=== PATIENT | female | born 1970 | race Caucasian/White ===

== ENCOUNTER 2023-08-12 14:12 | Inpatient (IN) | payer BC, SELFPAY ==
[2023-08-12] VITALS (20 sets, daily range): BP systolic 105–151; BP diastolic 56–89; PULSE 59–90; RESP 17–28; TEMP 36.5–37.8; O2SAT 2–99; BMI 35.3
--- NOTE | 2023-08-12 14:17 | PC.NURSE ---
arrived by stretcher from ED admissions
--- NOTE | 2023-08-12 14:17 | HMH.PHAINT1 ---
Pharmacy Intervention Comments: MEDICATION RECONCILIATION COMPLETED ON PATIENT USING EXTERNAL FILL HISTORY FROM PHARMACY. -JESSICA DOAN, VALERIANOD
--- NOTE | 2023-08-12 14:42 | CA_ITS ---
APPROVED REPORT EXAM: Comprehensive 2D, Doppler, and color-flow Echocardiogram Sheep Clipper: Kristen Manriquez RT(R) Ht: 5 ft 8 in Wt: 230lbs BSA: 2.17 BP: 132/86 mmHg Indications: NSTEMI, CP, smoker, palpitations, fatigue, HTN, SOB, SALVADOR, hyperlipidemia. 2D Dimensions LVEF (Durbin's) 30.30 % F: 54 - 74 LV Volume 182.70 mL F: 46 - 106 LV Volume Index 84.2 mL/m2 F: 29 - 61 LA Volume 63.40 mL LA Volume Index 29.22 mL/m2 (M/F) 16-34 EF AP4 30.40 % EF AP2 28.8 % EF BP 30.3 % GL Strain -7.6 % M-Mode Dimensions RVDd 2.30 cm (0.9-2.6) LA Diam 3.62 cm (1.9-4.0) LVDd 6.46 cm (3.5-5.7) LVDs 5.36 cm (3.5-5.7) IVSd 1.11 cm (0.6-1.1) PWd 0.68 cm (0.6-1.1) EF (Teich) 34.80% FS 17.00% EDV (Teich) 213.00 mL ESV (Teich) 138.90 mL LV Diastology E Decel Time 197 (160-240 msec) E/A Ratio 0.8 Aortic Valve AI PHT 612.00 ms Mitral Valve MV E Max Raheem. 65.0 (40-130 cm/s) MV A Velocity 85.0 (40-130 cm/s) E/A Ratio 0.77 MV PHT 58.0 ms Left Ventricle The left ventricle is mildly dilated (LVEDVi 85 ml/m2). Left ventricular systolic function is severely decreased. There is increased LV wall thickness. There is severe global hypokinesis present. The mid to distal septal, inferior septal, and anterior septal LV rivas, as well as the LV apex, are akinetic. Grade 2 diastolic dysfunction is present. No left ventricle thrombus noted on this study. LVEF is 20%. Right Ventricle The right ventricle is normal size. The right ventricular systolic function is normal. Atria The left atrium is mildly dilated. The right atrium size is normal. There is no Doppler evidence of interatrial shunt. Aortic Valve The aortic valve is mildly thickened. There is no aortic valvular stenosis. Mild to moderate aortic regurgitation. Mitral Valve The mitral valve leaflets are mildly thickened. No evidence of mitral valve stenosis. Mild mitral regurgitation. Tricuspid Valve The tricuspid valve leaflets are thin and pliable. Mild tricuspid regurgitation. RVSP is 20-25 mmHg. Pulmonic Valve The pulmonary valve is normal in structure. Trace pulmonic regurgitation. Great Vessels The aortic root is normal in size. The ascending aorta is not well-visualized. IVC is normal in size and collapses >50% with inspiration. Pericardium There is no pericardial effusion. Other Information Study Quality: Fair Conclusion Mild LV dilation (LVEDVi 85 ml/m2) with severe reduction in LV systolic function (LVEF 20%). The mid to distal septal, inferior septal, and anterior septal LV rivas, as well as the LV apex, are akinetic. Grade 2 diastolic dysfunction. Mild LA dilation. Mild to moderate AI. Mild MR, mild TR. Electronically signed by : Una Orozco MD 08/17/2023 00:53:53
--- NOTE | 2023-08-12 14:44 | PC.NURSE ---
Pt arrived to floor. 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 Pt describes discomfort as pressure. Niels notified. Orders to consult cardiology. Natalie consulted. New orders received to get echocardiogram. Give Metoprolol Tartrate 25 mg PO once now.
[2023-08-12] MEDS: METOPROLOL TARTRATE 25MG TABLET 25 MG PO (15:31)
--- NOTE | 2023-08-12 15:42 | PC.NURSE ---
Spoke with Dr. Estrada at this time. Instructed to call in cardiac cath technician team. Producer Assistant notified to call family development extension specialist team at this time. states to give pt 40 mg IV lasix and to stop all fluids.
--- NOTE | 2023-08-12 15:49 | PC.NURSE ---
Home Medications rosette Espinoza Medication Instructions Recorded Confirmed atorvastatin 20 mg tablet 20 mg PO DAILY 08/12/23 08/12/23 celecoxib 200 mg capsule 200 mg PO DAILY 08/12/23 08/12/23 duloxetine 60 mg capsule,delayed 60 mg PO DAILY 08/12/23 08/12/23 release gabapentin 600 mg tablet 600 mg PO TID 08/12/23 08/12/23 olmesartan 40 mg tablet 40 mg PO DAILY 08/12/23 08/12/23 pantoprazole 40 mg tablet,delayed 40 mg PO DAILY 08/12/23 08/12/23 release
[2023-08-12] MEDS: FUROSEMIDE 40MG/4ML VIAL 40 MG IV ×2 (15:52→19:59)
--- NOTE | 2023-08-12 15:56 | ECG_ITS ---
APPROVED REPORT Exam: Resting ECG HR:84 bpm ECG Measurements Heart Rate 84 AXES AK 146 P 67 QRSd 98 QRS 72 QT 414 T 252 QTc [address] DEVIATION AND MODERATE T-WAVE ABNORMALITY, CONSIDER ANTEROLATERAL ISCHEMIA [-0.1+ mV T-WAVE IN V3-V6] ST DEVIATION AND MODERATE T-WAVE ABNORMALITY, CONSIDER INFERIOR ISCHEMIA [-0.1+ mV T-WAVE IN II/aVF] ABNORMAL ECG UNCONFIRMED REPORT Electronically signed by : Mohit Shane MD 08/14/2023 07:37:37
--- NOTE | 2023-08-12 16:13 | IR_ITS ---
APPROVED REPORT Patient Location: Emergent Haul[facility] Boss: HELLEN Gray RT (R) PROCEDURES Selective coronary angiogram Intravascular ultrasound of the proximal and mid LAD Drug-eluting stent deployment to the proximal mid LAD INDICATION Acute anterior non-ST elevation myocardial infarction, Coronary artery disease Informed consent was obtained prior to the procedure. COMPLICATIONS None Estimated Blood Loss: Less than 10 mls TECHNIQUE One percent lidocaine used to anesthetize the right anterior aspect of the wrist. The right radial artery was accessed via the Seldinger technique. A 6 [place] sheath was placed in the right radial artery. 2.5 mg of Verapamil, 800 mcg of nitroglycerin, 1mg Lidocaine and 5000 U Heparin were given through the arterial sheath. The papa catheter was also used to perform selective coronary angiogram. At the end the diagnostic angiogram therapeutic ACT was administered giving a therapeutic ACT and the guide cath was placed in left main artery followed by a Choice PT extra-support wire placed into the LAD. Intravascular ultrasound probe was advanced which demonstrated a heavy plaque burden in the proximal LAD. Although the MLA exceeded 4 mm??? this clearly was the infarct vessel therefore it was decided to proceed with revascularization. In order to get better guide support 6 [place] JL 3 guide catheter was placed in left main artery followed by Choice PT to support wire placed distally. A 4.5 x 18 mm Brandon frontier stent was deployed at 12 елена reducing the culprit stenosis to 0% an additional 3.5 x 18 mm Brandon frontier stent was deployed distal to the for stent yet still overlapping and deployed at 12 елена. The balloon was brought back and deployed at 24 елена to mesh the 2 stents. Following this intravascular ultrasound probe was advanced which demonstrated excellent stent apposition and expansion of the stents throughout. There is excellent proximal distal transitioning of the stent. At this point the apparatus was removed the sheath was removed and hemostasis was achieved using TR banding patient was transferred to the postop putting in stable condition ANGIOGRAPHIC RESULTS The left main artery Normal The left anterior descending artery Has a proximal 40 to 50% stenosis immediately adjacent to the large diagonal arteries which appear to share the same ostium. The remaining LAD and diagonal arteries are free of disease The circumflex artery Mild luminal irregularities The right coronary artery Large dominant normal The POZO ventriculogram reveals Not performed The left ventricular end-diastolic pressure Not measured IMPRESSION Acute non-ST elevation anterior myocardial infarction with a culprit vessel being a proximal LAD stenosis Successful stent to the proximal to mid LAD culprit stenosis reduced to 0% with 2 contiguous drug-eluting stents PLAN 1. Switch from Brilinta to Effient 10 mg daily plus aspirin 81 mg daily 2. Start high intensity statin with goal LDL to be 55 3. Avoidance of tobacco products 4. Start Entresto and carvedilol once hemodynamically stable 5. I anticipate a prolonged hospitalization requiring further up titration of afterload reducing medicines and diuresis. Anticipate obtaining echocardiogram Tuesday. I do suspect a component of the LV dysfunction is stunned. Electronically signed by : Tomas Estrada MD 08/12/2023 17:53:12
[2023-08-12 16:32] LABS: Basophils # 0.1 K/mm3 (0-0.2); Basophils % 0.7 % (0.1-2.0); Eosinophils # 0.2 K/mm3 (0.0-0.4); Eosinophils % 1.2 % (0.1-12.0); Hematocrit 46.1 % (37.0-47.0); Hemoglobin 15.1 g/dL (12.2-16.2); Lymphocytes # 3.9 K/mm3 (0.7-4.5); Lymphocytes % 21.6 % (10-50); Mean Corpuscular HGB Conc 32.9 g/dL (31.8-35.4); Mean Corpuscular Hemoglobin 28.4 pg (27.0-31.2); Mean Corpuscular Volume 86.3 fl (81-99); Mean Platelet Volume 8.5 fl (7.4-10.4); Monocytes # 0.5 K/mm3 (0.1-1.0); Monocytes % 2.9 % (1.7-9.3); Neutrophils # 13.1 K/mm3 (1.8-7.8); Neutrophils % 73.5 % (37.0-80.0); Platelet Count 297 K/mm3 (142-424); Red Blood Count 5.34 M/mm3 (4.20-5.40); Red Cell Distribution Width 13.8 % (11.5-17.5); White Blood Count 17.8 K/mm3 (4.8-10.8)
[2023-08-12 16:37] LABS: MANUAL DIFFERENTIAL MANUAL DIFFERENTIAL (MANUAL DIFF)
[2023-08-12 16:44] LABS: Chloride 107 mmol/L (98-107); Sodium 138 mmol/L (136-145)
[2023-08-12 16:45] LABS: Potassium 3.8 mmoL/L (3.5-5.1)
[2023-08-12 16:48] LABS: Anion Gap 9.8 mEq/L (5-15); Blood Urea Nitrogen 15 mg/dl (7-17); Calcium 9.8 mg/dl (8.4-10.2); Carbon Dioxide 25 mmol/L (22.0-30.0); Creatinine Clearance Estimated 109 mL/min (50-200); Estimated Glomerular Filt Rate 58 ml/min (>60); GFR (African American) 70 ML/MIN (>60); Glucose 124 mg/dl (74-100)
[2023-08-12] MEDS: diphenhydrAMINE 50MG/ML VIAL 50 MG IV (16:50)
[2023-08-12] MEDS: 0.9 % SODIUM CHLORIDE 500 ML 25 ML IV (16:53)
[2023-08-12] MEDS: HEPARIN 1,000 UNITS/500ML NS (CATH LAB) 3000 UNIT IV (16:53)
[2023-08-12] MEDS: HEPARIN 1,000 UNITS/ML 10ML VIAL (CATH LAB) 10000 UNIT IV (16:57)
[2023-08-12] MEDS: LIDOCAINE 1% 10ML MDV 20 ML IJ (16:57)
[2023-08-12] MEDS: NITROGLYCERIN 800MCG/8ML SYR (CATH LAB) 800 MCG IA (16:57)
[2023-08-12] MEDS: VERAPAMIL 2.5MG/ML 2ML VIAL 2.5 MG IV (16:57)
[2023-08-12] MEDS: MIDAZOLAM HCL 1MG/1ML 5ML VIAL 1 MG IV (17:17)
[2023-08-12] MEDS: FENTANYL 100MCG/2ML VIAL 50 MCG IV (17:17)
--- NOTE | 2023-08-12 17:31 | P.HP_ITS ---
History of Present Illness *Admission Date: 08/12/23 *Reason for visit:: chest pressure *History of present illness: Patient is a 52-year-old female with past medical history of hypertension hyperlipidemia who presents to the hospital due to chest pressures. According to the patient she has been feeling chest pressure for the past few days, she was evaluated at outside emergency department where she was found to have elevated troponin she was recommended to come to the [facility] for further evaluation by cardiology. Patient otherwise also complaining of shortness of breath. Patient mentions it is more like chest pressure than chest pain. Patient otherwise denied fever chills diarrhea constipation dysuria. [facility] Disclaimer: The information contained in this section may have been updated after the patient was seen, as this information can be updated by other users. Medical History (Updated 08/12/23 @ 17:32 by Elia Bowser MD) Angina at rest Urinary incontinence Hypertension Surgical History (Updated 08/12/23 @ 15:02 by Claudia Velez CMA) History of cholecystectomy History of hysterectomy Social History (Updated 08/12/23 @ 15:02 by Claudia Velez CMA) Smoking Status: Current every day smoker tobacco type: cigarettes packs per day: 1 alcohol intake: current current occupational status: employed Travel in the last 8 weeks: None Review of Systems Review of Systems Review of systems:: pertinent systems reviewed and negative unless documented below Meds Home Medications and Allergies Home Medications Medication Instructions Recorded Confirmed Type atorvastatin 20 mg tablet 20 mg PO DAILY 08/12/23 08/12/23 History celecoxib 200 mg capsule 200 mg PO DAILY 08/12/23 08/12/23 History duloxetine 60 mg capsule,delayed 60 mg PO DAILY 08/12/23 08/12/23 History release gabapentin 600 mg tablet 600 mg PO TID 08/12/23 08/12/23 History olmesartan 40 mg tablet 40 mg PO DAILY 08/12/23 08/12/23 History pantoprazole 40 mg tablet,delayed 40 mg PO DAILY 08/12/23 08/12/23 History release New Prescriptions to Start Prescriptions: Allergies Allergy/AdvReac Type Severity Reaction Status Date / Time No Known Allergies Allergy Verified 08/12/23 14:32 Exam Data for Last 24 hours Vital signs and Labs for Last 24 Hours: Temp Pulse Resp BP Pulse Ox O2 Del Method O2 Flow Rate 98.3 F 86 18 149/88 H 98 Nasal Cannula 2 04/19/24 14:31 08/12/23 16:18 08/12/23 16:18 08/12/23 16:18 08/12/23 16:18 08/12/23 16:18 08/12/23 16:18 Laboratory Results - last 24 hr 08/12/23 16:23: WBC 17.8 H, RBC 5.34, Hgb 15.1, Hct 46.1, MCV 86.3, MCH 28.4, MCHC 32.9, RDW 13.8, Plt Count 297, MPV 8.5, Neut % (Auto) 73.5, Lymph % (Auto) 21.6, [place] % (Auto) 2.9, Eos % (Auto) 1.2, Baso % (Auto) 0.7, Neut # (Auto) 13.1 H, Lymph # (Auto) 3.9, [place] # (Auto) 0.5, Eos # (Auto) 0.2, Baso # (Auto) 0.1, Sodium 138, Potassium 3.8, Chloride 107, Carbon Dioxide 25, Anion Gap 9.8, BUN 15, Creatinine 1.00, Estimated Creat Clear 109, Estimated GFR 58 L, Est GFR ( Amer) 70, Glucose 124 H, Calcium 9.8 I & O for Last 24 hours: Intake & Output 08/09/23 08/10/23 08/11/23 08/12/23 23:59 23:59 23:59 23:59 Weight 105.318 kg Constitutional Constitutional: no acute distress *Routine HEENT Exam Head: Present normocephalic Eye: Present EOMI and PERRL ENT: Present mucous membranes moist *Routine Neck Exam Neck: Present supple; Absent lymphadenopathy *Routine Respiratory Exam Respiratory: Present CTA bilaterally *Routine Cardiovascular Exam Cardiovascular: Present RRR *Routine Abdominal Exam Abdominal: Present soft and normoactive bowel sounds; Absent tenderness *Routine Rectal Exam Rectal:: deferred *Routine Genitalia Exam Genitalia:: deferred *Routine Extremities Exam Extremities: Absent cyanosis, clubbing or edema *Routine Skin Exam Skin: Present warm; Absent rash *Routine Neurological Exam Neurological: Present alert and oriented X3 Assessment and Plan *Assessment and plan (1) NSTEMI (non-ST elevated myocardial infarction): Status: Acute Category: Medical Code(s): I21.4 - Non-ST elevation (NSTEMI) myocardial infarction (2) HLD (hyperlipidemia): Status: Acute Category: Medical Code(s): E78.5 - Hyperlipidemia, unspecified (3) Hypertension: Status: Acute Category: Medical Code(s): I10 - Essential (primary) hypertension Plan Patient is a 52-year-old female with past medical history of hypertension hyperlipidemia who presents to the hospital due to chest pressures. According to the patient she has been feeling chest pressure for the past few days, she was evaluated at outside emergency department where she was found to have elevated troponin she was recommended to come to the [facility] for further evaluation by cardiology. Patient otherwise also complaining of shortness of breath. Patient mentions it is more like chest pressure than chest pain. Patient otherwise denied fever chills diarrhea constipation dysuria. Assessment and plan Chest pressure, elevated troponin likely NSTEMI History of CAD Hypertension Plan for cardiac cath Monitor on cardiac group home supervisor troponin Consult cardiology Monitor and replace electrolytes Leukocytosis Likely reactive Resume home Protonix, olmesartan, atorvastatin DVT prophylaxis-, heparin
[2023-08-12 17:40] LABS: Eosinophils % 1 % (0-3); Lymphocytes % 19 % (10-50); Monocytes % 2 % (2-9); Neutrophils % 78 % (42-76); Platelet Estimate Normal; RBC Morphology Normal; Total Cells Counted 100
[2023-08-12] MEDS: IOPAMIDOL-370 (76%);100ML BOTTLE 150 ML IV (18:03)
[2023-08-12 18:04] LABS: CATHL Activated Clotting Time > 400 SEC (74-125)
[2023-08-12 18:06] LABS: CATHL Activated Clotting Time 314 SEC (74-125)
[2023-08-12] MEDS: PRASUGREL 10MG TAB 60 MG PO (18:08)
[2023-08-12 19:37] LABS: Troponin I 2.28 ng/ml (0.00-0.034)
[2023-08-12] MEDS: SACUBITRIL/VALSARTAN 24-26MG TABLET 1 EACH PO (19:59)
[2023-08-13] VITALS (14 sets, daily range): BP systolic 89–113; BP diastolic 49–68; PULSE 70–88; RESP 15–24; TEMP 36.6–37.3; O2SAT 94–97; BMI 35.0
--- NOTE | 2023-08-13 05:39 | ECG_ITS ---
APPROVED REPORT Exam: Resting ECG HR:76 bpm ECG Measurements Heart Rate 76 AXES IA 144 P 48 QRSd 100 QRS 38 QT 481 T 231 QTc [address] DEVIATION AND MARKED T-WAVE ABNORMALITY, CONSIDER ANTEROLATERAL ISCHEMIA [-0.5+ mV T-WAVE IN I/aVL/V3-V6] ST DEVIATION AND MODERATE T-WAVE ABNORMALITY, CONSIDER INFERIOR ISCHEMIA [-0.1+ mV T-WAVE IN II/aVF] ABNORMAL ECG UNCONFIRMED REPORT Electronically signed by : Mohit Shane MD 08/14/2023 07:37:24
[2023-08-13] MEDS: HEPARIN SODIUM 5,000 UNIT/ML VIAL 5000 UNIT SQ ×3 (05:56→20:48)
[2023-08-13 06:01] LABS: Basophils # 0.1 K/mm3 (0-0.2); Basophils % 0.7 % (0.1-2.0); Eosinophils # 0.3 K/mm3 (0.0-0.4); Eosinophils % 1.6 % (0.1-12.0); Hematocrit 43.8 % (37.0-47.0); Hemoglobin 14.1 g/dL (12.2-16.2); Lymphocytes # 3.3 K/mm3 (0.7-4.5); Lymphocytes % 19.9 % (10-50); Mean Corpuscular HGB Conc 32.3 g/dL (31.8-35.4); Mean Corpuscular Hemoglobin 28.1 pg (27.0-31.2); Mean Platelet Volume 8.5 fl (7.4-10.4); Monocytes # 0.7 K/mm3 (0.1-1.0); Monocytes % 3.9 % (1.7-9.3); Neutrophils # 12.3 K/mm3 (1.8-7.8); Neutrophils % 73.8 % (37.0-80.0); Platelet Count 274 K/mm3 (142-424); Red Blood Count 5.03 M/mm3 (4.20-5.40); Red Cell Distribution Width 13.8 % (11.5-17.5); White Blood Count 16.7 K/mm3 (4.8-10.8)
--- NOTE | 2023-08-13 06:01 | XR_ITS ---
PROCEDURE INFORMATION: Exam: XR Chest Exam date and time: 08/13/2023 6:36 AM Age: 52 years old Clinical indication: Chest wall pain; Additional info: Cp TECHNIQUE: Imaging protocol: Radiologic exam of the chest. Views: 1 view. COMPARISON: No relevant prior studies available. FINDINGS: Lungs: No consolidation. There is some trace right basilar atelectasis. Pleural spaces: No pleural effusion. No pneumothorax. Heart/Mediastinum: No cardiomegaly. Bones/joints: There are degenerative changes of the spine. IMPRESSION: 1. No acute findings. 2. A followup PA and lateral radiograph is recommended when the patient is clinically able.
[2023-08-13 06:07] LABS: Chloride 104 mmol/L (98-107)
[2023-08-13 06:08] LABS: Potassium 3.3 mmoL/L (3.5-5.1); Sodium 137 mmol/L (136-145)
[2023-08-13 06:11] LABS: Anion Gap 9.3 mEq/L (5-15); Blood Urea Nitrogen 18 mg/dl (7-17); Calcium 9.1 mg/dl (8.4-10.2); Carbon Dioxide 27 mmol/L (22.0-30.0); Creatinine Clearance Estimated 99 mL/min (50-200); Estimated Glomerular Filt Rate 52 ml/min (>60); GFR (African American) 63 ML/MIN (>60); Glucose 147 mg/dl (74-100)
[2023-08-13] MEDS: PANTOPRAZOLE 40MG VIAL 40 MG IV (06:12)
[2023-08-13] MEDS: NITROGLYCERIN 0.4MG SL TABLET 0.400000000000000022 MG SL (06:30)
[2023-08-13 06:45] LABS: MANUAL DIFFERENTIAL MANUAL DIFFERENTIAL (MANUAL DIFF)
[2023-08-13 06:46] LABS: Troponin I 1.79 ng/ml (0.00-0.034)
[2023-08-13 07:25] LABS: Lymphocytes % 26 % (10-50); Monocytes % 4 % (2-9); Neutrophils % 70 % (42-76); Total Cells Counted 100
[2023-08-13 07:26] LABS: Platelet Estimate Normal; RBC Morphology Normal
--- NOTE | 2023-08-13 07:26 | PC.NURSE ---
pt reported soreness pain to epigastric area radiating to back. sr with inverted t waves noted. vale martinez aprn made aware. bp 97/50. ekg ordered and trop. order to give sq ntg. 1 ntg given with decrease in pain from 3 to 1. bp 96/50 after ntg. trop 1.75. pt cont to report soa, pt remains on 2.5l/nc.
[2023-08-13] MEDS: SACUBITRIL/VALSARTAN 24-26MG TABLET 1 EACH PO ×2 (09:02→20:48)
[2023-08-13] MEDS: PRASUGREL 10MG TAB 10 MG PO (09:02)
[2023-08-13] MEDS: ASPIRIN EC 81MG TABLET 81 MG PO (09:02)
[2023-08-13] MEDS: NEOMYCIN-POLYMYXIN-BACIT OINT 15GM TUBE TP (10:43)
[2023-08-13] MEDS: DULOXETINE 30MG CAPSULE.DR 60 MG PO (10:43)
[2023-08-13] MEDS: CELECOXIB 100MG CAPSULE 200 MG PO (10:43)
--- NOTE | 2023-08-13 13:15 | EXP.PN ---
Subjective *Date: 08/13/23 *Time: 13:15 Interval history: denied CP, SOB, has nausea, thinks she skipped her home meds for fibromyalgia that may be contributing as well, denied fevers, chills, abdominal pain, has GERD Exam Data for Last 24 hours Vital signs and Labs for Last 24 Hours: Temp Pulse Resp BP Pulse Ox O2 Del Method O2 Flow Rate 98.4 F 88 19 106/62 L 96 Nasal Cannula 3 08/13/23 11:33 08/13/23 11:08/13/23 11:08/13/23 11:33 08/13/23 11:33 08/13/23 11:33 08/13/23 11:33 Laboratory Results - last 24 hr 08/12/23 16:23: WBC 17.8 H, RBC 5.34, Hgb 15.1, Hct 46.1, MCV 86.3, MCH 28.4, MCHC 32.9, RDW 13.8, Plt Count 297, MPV 8.5, Neut % (Auto) 73.5, Lymph % (Auto) 21.6, [place] % (Auto) 2.9, Eos % (Auto) 1.2, Baso % (Auto) 0.7, Neut # (Auto) 13.1 H, Lymph # (Auto) 3.9, [place] # (Auto) 0.5, Eos # (Auto) 0.2, Baso # (Auto) 0.1, Total Counted 100, Neutrophils % (Manual) 78 H, Lymphocytes % (Manual) 19, Monocytes % (Manual) 2, Eosinophils % (Manual) 1, Platelet Estimate Normal, RBC Morphology Normal, Sodium 138, Potassium 3.8, Chloride 107, Carbon Dioxide 25, Anion Gap 9.8, BUN 15, Creatinine 1.00, Estimated Creat Clear 109, Estimated GFR 58 L, Est GFR ( Amer) 70, Glucose 124 H, Calcium 9.8, Troponin I 2.28 H 08/12/23 16:55: Activated Clotting Time > 400 H* 08/12/23 17:28: Activated Clotting Time 314 H* D 08/13/23 05:52: WBC 16.7 H, RBC 5.03, Hgb 14.1, Hct 43.8, MCV 87.0, MCH 28.1, MCHC 32.3, RDW 13.8, Plt Count 274, MPV 8.5, Neut % (Auto) 73.8, Lymph % (Auto) 19.9, [place] % (Auto) 3.9, Eos % (Auto) 1.6, Baso % (Auto) 0.7, Neut # (Auto) 12.3 H, Lymph # (Auto) 3.3, [place] # (Auto) 0.7, Eos # (Auto) 0.3, Baso # (Auto) 0.1, Total Counted 100, Neutrophils % (Manual) 70, Lymphocytes % (Manual) 26, Monocytes % (Manual) 4, Platelet Estimate Normal, RBC Morphology Normal, Sodium 137, Potassium 3.3 L, Chloride 104, Carbon Dioxide 27, Anion Gap 9.3, BUN 18 H, Creatinine 1.10 H, Estimated Creat Clear 99, Estimated GFR 52 L, Est GFR ( Amer) 63, Glucose 147 H, Calcium 9.1, Troponin I 1.79 H I & O for Last 24 hours: Intake & Output 08/10/23 08/11/23 08/12/23 08/13/23 23:59 23:59 23:59 23:59 Intake Total 170 / 170 Output Total 0 / 800 800 / 800 Balance 0 / -800 -630 / -630 Weight 105.318 kg 104.893 kg Constitutional Constitutional: no acute distress *Routine HEENT Exam Head: Present normocephalic Eye: Present EOMI and PERRL ENT: Present mucous membranes moist *Routine Neck Exam Neck: Present supple; Absent lymphadenopathy *Routine Respiratory Exam Respiratory: Present CTA bilaterally *Routine Cardiovascular Exam Cardiovascular: Present RRR *Routine Abdominal Exam Abdominal: Present soft and normoactive bowel sounds; Absent tenderness *Routine Extremities Exam Extremities: Absent cyanosis, clubbing or edema *Routine Skin Exam Skin: Present warm; Absent rash *Routine Neurological Exam Neurological: Present alert and oriented X3 Assessment and Plan *Assessment and plan (1) NSTEMI (non-ST elevated myocardial infarction): Status: Acute Category: Medical Code(s): I21.4 - Non-ST elevation (NSTEMI) myocardial infarction (2) HLD (hyperlipidemia): Status: Acute Category: Medical Code(s): E78.5 - Hyperlipidemia, unspecified (3) Hypertension: Status: Acute Category: Medical Code(s): I10 - Essential (primary) hypertension Plan Patient is a 52-year-old female with past medical history of hypertension hyperlipidemia who presents to the hospital due to chest pressures. According to the patient she has been feeling chest pressure for the past few days, she was evaluated at outside emergency department where she was found to have elevated troponin she was recommended to come to the [facility] for further evaluation by cardiology. Patient otherwise also complaining of shortness of breath. Patient mentions it is more like chest pressure than chest pain. Patient otherwise denied fever chills diarrhea constipation dysuria. Assessment and plan Chest pressure, elevated troponin likely NSTEMI History of CAD Hypertension s/p cardiac cath and stenting continue ASA and effient Monitor on cardiac management scientist troponin Consult cardiology - following Monitor and replace electrolytes Leukocytosis Likely reactive Resume home Protonix, olmesartan, atorvastatin DVT prophylaxis- heparin
[2023-08-13] MEDS: GABAPENTIN 600MG TABLET 600 MG PO ×2 (13:28→20:48)
--- NOTE | 2023-08-13 16:04 | PC.NURSE ---
A&OX4. PT HAS TOLERATED 3L NC WELL THROUGHOUT SHIFT. RESPIRATIONS REGULAR AND UNLABORED. LUNG SOUNDS CLEAR THROUGHOUT. NO COUGH NOTED. NO EDEMA NOTED. HEART RATE REGULAR. +2 PULSES NOTED THROUGHOUT. ACTIVE BOWEL SOUNDS HEARD IN ALL 4 QUADRANTS. SOFT AND NONTENDER ABDOMEN. VOIDS PER BATHROOM INDEPENDENTLY. NO BM REPORTED THUS FAR. PT REPORTED NAUSEA THIS AM. OFFERED ZOFRAN AND PT DECLINED. SHE WANTED SPRITE FIRST TO SEE IF IT WOULD HELP AND AFTER DRINKING SHE STATED IT DID. NO REPORTS OF CHEST PAIN THUS FAR. STATES SHE IS JUST SORE. DENIES WANTING ANYTHING FOR PAIN. FAMILY HAS REMAINED AT BEDSIDE. HAND FINANCIAL RECORDING CLERK EQUAL. R RADIAL CATH SIDE WITH DRESSING IN PLACE. CDI. SMALL DIME SIZED SORE NOTED UNDER L BREAST. OINTMENT APPLIED PER JUN. OFFERED NICOTINE PATCH TO PT SHE REPORTS SHE SMOKES BUT DENIED IT. STATES SHE HAS NO DESIRE TO SMOKE. NO QUESTIONS OR CONCERNS VOICED THUS FAR. BED IN LOWEST POSITION. CALL LIGHT WITHIN REACH.
--- NOTE | 2023-08-13 17:38 | PC.NURSE ---
TURNED 02 DOWN FROM 3L TO 2L NC NOTED AT 95% TOLERATING WELL
[2023-08-13] MEDS: POTASSIUM CHLORIDE 20MEQ TAB 40 MEQ PO (20:48)
[2023-08-13] MEDS: ATORVASTATIN 20MG TABLET 20 MG PO (20:51)
--- NOTE | 2023-08-13 21:00 | PC.NURSE ---
pt meds locked in room med drawer
[2023-08-14] VITALS (8 sets, daily range): BP systolic 87–111; BP diastolic 52–62; PULSE 78–90; RESP 17–20; TEMP 36.6–38; O2SAT 95–100; BMI 35.8
[2023-08-14] MEDS: HEPARIN SODIUM 5,000 UNIT/ML VIAL 5000 UNIT SQ ×3 (05:39→20:07)
[2023-08-14 06:53] LABS: Basophils # 0.1 K/mm3 (0-0.2); Basophils % 0.8 % (0.1-2.0); Eosinophils # 0.3 K/mm3 (0.0-0.4); Hematocrit 42.6 % (37.0-47.0); Hemoglobin 13.8 g/dL (12.2-16.2); Lymphocytes % 21.8 % (10-50); Mean Corpuscular HGB Conc 32.4 g/dL (31.8-35.4); Mean Corpuscular Hemoglobin 28.5 pg (27.0-31.2); Mean Corpuscular Volume 88.1 fl (81-99); Mean Platelet Volume 8.6 fl (7.4-10.4); Monocytes # 0.8 K/mm3 (0.1-1.0); Monocytes % 5.7 % (1.7-9.3); Neutrophils # 9.7 K/mm3 (1.8-7.8); Neutrophils % 69.6 % (37.0-80.0); Platelet Count 264 K/mm3 (142-424); Red Blood Count 4.83 M/mm3 (4.20-5.40); Red Cell Distribution Width 13.8 % (11.5-17.5); White Blood Count 13.9 K/mm3 (4.8-10.8)
[2023-08-14 06:58] LABS: Chloride 106 mmol/L (98-107); Potassium 4.1 mmoL/L (3.5-5.1); Sodium 137 mmol/L (136-145)
[2023-08-14 07:01] LABS: Anion Gap 5.1 mEq/L (5-15); Blood Urea Nitrogen 16 mg/dl (7-17); Calcium 9.1 mg/dl (8.4-10.2); Carbon Dioxide 30 mmol/L (22.0-30.0); Creatinine Clearance Estimated 124 mL/min (50-200); Estimated Glomerular Filt Rate 66 ml/min (>60); GFR (African American) 80 ML/MIN (>60); Glucose 110 mg/dl (74-100)
[2023-08-14] MEDS: DULOXETINE 30MG CAPSULE.DR 60 MG PO (08:19)
[2023-08-14] MEDS: ASPIRIN EC 81MG TABLET 81 MG PO (08:19)
[2023-08-14] MEDS: PANTOPRAZOLE 40MG TABLET 40 MG PO (08:19)
[2023-08-14] MEDS: PRASUGREL 10MG TAB 10 MG PO (08:19)
[2023-08-14] MEDS: CELECOXIB 100MG CAPSULE 200 MG PO (08:19)
[2023-08-14] MEDS: GABAPENTIN 600MG TABLET 600 MG PO ×3 (08:20→20:07)
[2023-08-14] MEDS: SACUBITRIL/VALSARTAN 24-26MG TABLET 1 EACH PO ×2 (08:20→20:07)
--- NOTE | 2023-08-14 14:22 | P.PN_ITS ---
Subjective *Date: 08/14/23 *Time: 14:22 Interval history: denied CP, SOB, has nausea but that has improved, denied fevers, chills, abdominal pain, has GERD Exam Data for Last 24 hours Vital signs and Labs for Last 24 Hours: Temp Pulse Resp BP Pulse Ox O2 Del Method O2 Flow Rate 98 F 80 17 87/59 L 100 Room Air 2 08/14/23 07:30 08/14/23 12:00 08/14/23 12:00 08/14/23 12:00 08/14/23 12:00 08/14/23 13:00 08/14/23 12:00 Laboratory Results - last 24 hr 08/14/23 06:45: WBC 13.9 H, RBC 4.83, Hgb 13.8, Hct 42.6, MCV 88.1, MCH 28.5, MCHC 32.4, RDW 13.8, Plt Count 264, MPV 8.6, Neut % (Auto) 69.6, Lymph % (Auto) 21.8, [place] % (Auto) 5.7, Eos % (Auto) 2.0, Baso % (Auto) 0.8, Neut # (Auto) 9.7 H, Lymph # (Auto) 3.0, [place] # (Auto) 0.8, Eos # (Auto) 0.3, Baso # (Auto) 0.1, Sodium 137, Potassium 4.1 D, Chloride 106, Carbon Dioxide 30, Anion Gap 5.1, BUN 16, Creatinine 0.90, Estimated Creat Clear 124, Estimated GFR 66, Est GFR ( Amer) 80 D, Glucose 110 H, Calcium 9.1 I & O for Last 24 hours: Intake & Output 08/11/23 08/12/23 08/13/23 08/14/23 23:59 23:59 23:59 23:59 Intake Total 915 / 1035 840 / 840 Output Total 0 / 800 800 / 800 0 / 0 Balance 0 / -800 115 / 235 840 / 840 Weight 105.318 kg 104.893 kg 107.2 kg Constitutional Constitutional: no acute distress *Routine HEENT Exam Head: Present normocephalic Eye: Present EOMI and PERRL ENT: Present mucous membranes moist *Routine Neck Exam Neck: Present supple; Absent lymphadenopathy *Routine Respiratory Exam Respiratory: Present CTA bilaterally *Routine Cardiovascular Exam Cardiovascular: Present RRR *Routine Abdominal Exam Abdominal: Present soft and normoactive bowel sounds; Absent tenderness *Routine Extremities Exam Extremities: Absent cyanosis, clubbing or edema *Routine Skin Exam Skin: Present warm; Absent rash *Routine Neurological Exam Neurological: Present alert and oriented X3 Assessment and Plan *Assessment and plan (1) NSTEMI (non-ST elevated myocardial infarction): Status: Acute Category: Medical Code(s): I21.4 - Non-ST elevation (NSTEMI) myocardial infarction (2) HLD (hyperlipidemia): Status: Acute Category: Medical Code(s): E78.5 - Hyperlipidemia, unspecified (3) Hypertension: Status: Acute Category: Medical Code(s): I10 - Essential (primary) hypertension Plan Patient is a 52-year-old female with past medical history of hypertension hyperl ipidemia who presents to the hospital due to chest pressures. According to the patient she has been feeling chest pressure for the past few days, she was evaluated at outside emergency department where she was found to have elevated troponin she was recommended to come to the [facility] for further evaluation by cardiology. Patient otherwise also complaining of shortness of breath. Patient mentions it is more like chest pressure than chest pain. Patient otherwise denied fever chills diarrhea constipation dysuria. Assessment and plan Chest pressure, elevated troponin likely NSTEMI History of CAD Hypertension s/p cardiac cath and stenting continue ASA and effient Monitor on cardiac telemetry Consult cardiology - following, plan for echo tomorrow and likely DC Monitor and replace electrolytes Leukocytosis Likely reactive Resume home Protonix, olmesartan, atorvastatin DVT prophylaxis- heparin plan for echo tomorrow and likely DC , check CBC, BMP
[2023-08-14] MEDS: ATORVASTATIN 20MG TABLET 20 MG PO (20:07)
[2023-08-14] MEDS: ACETAMINOPHEN 325MG TAB 650 MG PO (20:07)
[2023-08-15] VITALS: BP 104/67; PULSE 70; PULSE 73; RESP 16; TEMP 36.8; O2SAT 90
--- NOTE | 2023-08-15 | CA_ITS ---
APPROVED REPORT EXAM: Limited 2D Echocardiogram Vp Data: Julieta Hernandez RVT Ht: 5 ft 8 in Wt: 232lbs BSA: 2.18 BP: 134/73 mmHg Indications: EF CHECK S/P STENTING,CM,CP,NSTEMI,PALPS,SOA,SMOKER 2D Dimensions IVSd 1.81 cm F: 0.6-1.0 LVEF (Visual) 47.80 % PWd 1.01 cm F: 0.6 - 1.0 LVDd 3.90 cm F: 3.9 - 5.3 LVDs 2.98 cm F: 2.2 - 3.5 M-Mode Dimensions RVDd 3.10 cm (0.9-2.6) LA Diam 3.35 cm (1.9-4.0) LVDd 4.95 cm (3.5-5.7) LVDs 3.58 cm (3.5-5.7) IVSd 1.57 cm (0.6-1.1) PWd 0.64 cm (0.6-1.1) EF (Teich) 53.50% FS 27.70% EDV (Teich) 115.50 mL ESV (Teich) 53.70 mL Other Information Study Quality: Fair Conclusion This is a limited TTE to evaluate for LVEF in the setting of post PCI. Limited windows were obtained. The left ventricle is normal in size. There is increased LV wall thickness. There is mild global hypokinesis present. There is moderate hypokinesis of the septal, inferoseptal, and anteroseptal LV rivas. LVEF is 45%. Trivial pericardial effusion noted anteriorly. No acute indications of tamponade. Compared to prior study from 3 days prior on 08/12/2023, the LVEF is now improved. Electronically signed by : Una Orozco MD 08/17/2023 12:49:43
[2023-08-15 04:00] VITALS: BP 97/47; PULSE 76; RESP 18; TEMP 36.9; O2SAT 96; BMI 35.9
[2023-08-15] MEDS: HEPARIN SODIUM 5,000 UNIT/ML VIAL 5000 UNIT SQ (04:45)
--- NOTE | 2023-08-15 04:48 | PC.NURSE ---
Alert and oriented. Fever at the beginning of the shift, treated per mar, no other issues. Pt has has no complaints. Tried to wean O2 to 1L NC, pt sat 90%, increased back to 2L NC, pt sat >92%. Pt has rested throughout the night. Call light in reach.
[2023-08-15 07:01] LABS: Basophils # 0.1 K/mm3 (0-0.2); Basophils % 0.9 % (0.1-2.0); Eosinophils # 0.2 K/mm3 (0.0-0.4); Eosinophils % 2.5 % (0.1-12.0); Hematocrit 39.2 % (37.0-47.0); Hemoglobin 12.6 g/dL (12.2-16.2); Lymphocytes # 2.5 K/mm3 (0.7-4.5); Lymphocytes % 29.8 % (10-50); Mean Corpuscular HGB Conc 32.2 g/dL (31.8-35.4); Mean Corpuscular Hemoglobin 28.3 pg (27.0-31.2); Mean Corpuscular Volume 87.9 fl (81-99); Mean Platelet Volume 8.9 fl (7.4-10.4); Monocytes # 0.5 K/mm3 (0.1-1.0); Monocytes % 5.6 % (1.7-9.3); Neutrophils # 5.1 K/mm3 (1.8-7.8); Neutrophils % 61.3 % (37.0-80.0); Platelet Count 296 K/mm3 (142-424); Red Blood Count 4.46 M/mm3 (4.20-5.40); Red Cell Distribution Width 13.7 % (11.5-17.5); White Blood Count 8.4 K/mm3 (4.8-10.8)
[2023-08-15 07:06] LABS: Chloride 109 mmol/L (98-107); Potassium 3.5 mmoL/L (3.5-5.1); Sodium 137 mmol/L (136-145)
[2023-08-15 07:09] LABS: Anion Gap 5.5 mEq/L (5-15); Blood Urea Nitrogen 14 mg/dl (7-17); Calcium 9.1 mg/dl (8.4-10.2); Carbon Dioxide 26 mmol/L (22.0-30.0); Creatinine Clearance Estimated 112 mL/min (50-200); Estimated Glomerular Filt Rate 58 ml/min (>60); GFR (African American) 70 ML/MIN (>60); Glucose 165 mg/dl (74-100)
[2023-08-15 08:00] VITALS: BP 115/61; PULSE 75; PULSE 76; RESP 18; TEMP 36.7; O2SAT 98
--- NOTE | 2023-08-15 08:49 | EXP.CARD.CON ---
History of Present Illness History of Present Illness Consult date: 08/15/23 Requesting physician: Elia Bowser Consult reason: shortness of breath Chief complaint: NSTEMI Additional Medical History:: 1. Hypertension, treated for many years 2. Hyperlipidemia, treated for many years 3. Tobacco use, 1 pack/day since age 16 4. CAD A. NSTEMI, 08/12/2023, 2 MANISH to LAD 5. Ischemic cardiomyopathy, 08/12/2023 History of present illness: Patient is a 52-year-old female with past medical history of hypertension hyperlipidemia who presents to the hospital due to chest pressures. According to the patient she has been feeling chest pressure for the past few days, she was evaluated at outside emergency department where she was found to have elevated troponin she was recommended to come to the [facility] for further evaluation by cardiology. Patient otherwise also complaining of shortness of breath. Patient mentions it is more like chest pressure than chest pain. Patient otherwise denied fever chills diarrhea constipation dysuria. The above per Dr. Bowser Patient confirms events of chest pressure occurring over the previous 3 to 4 days prior to admission. She describes it as a heaviness on the chest with difficulty breathing that would occur mainly at night waking her up. She did undergo cardiac catheterization on 08/12/2023 with drug-eluting stents placed to the LAD. Echocardiogram at that same time showed severely reduced EF with plans for limited echocardiogram this morning to reevaluate. Patient does feel better since having the coronary stenting. [facility] Disclaimer: The information contained in this section may have been updated after the patient was seen, as this information can be updated by other users. Medical History (Updated 08/15/23 @ 08:54 by SYLWIA Castillo) Angina at rest Urinary incontinence Hypertension Surgical History (Updated 08/12/23 @ 15:02 by Claudia Velez CMA) History of cholecystectomy History of hysterectomy Social History (Updated 08/12/23 @ 15:02 by Claudia Velez CMA) Smoking Status: Current every day smoker tobacco type: cigarettes packs per day: 1 alcohol intake: current current occupational status: employed Travel in the last 8 weeks: None Exam Data for Last 24 hours Vital signs and Labs for Last 24 Hours: Temp Pulse Resp BP Pulse Ox O2 Del Method O2 Flow Rate 98.5 F 76 18 97/47 L 96 Nasal Cannula 2 08/15/23 04:00 08/15/23 04:00 08/15/23 04:00 08/15/23 04:00 08/15/23 04:00 08/15/23 06:36 08/15/23 06:36 FiO2 28 08/14/23 19:20 Laboratory Results - last 24 hr 08/15/23 06:13: WBC 8.4 D, RBC 4.46, Hgb 12.6, Hct 39.2, MCV 87.9, MCH 28.3, MCHC 32.2, RDW 13.7, Plt Count 296, MPV 8.9, Neut % (Auto) 61.3, Lymph % (Auto) 29.8, [place] % (Auto) 5.6, Eos % (Auto) 2.5, Baso % (Auto) 0.9, Neut # (Auto) 5.1, Lymph # (Auto) 2.5, [place] # (Auto) 0.5, Eos # (Auto) 0.2, Baso # (Auto) 0.1, Sodium 137, Potassium 3.5, Chloride 109 H, Carbon Dioxide 26, Anion Gap 5.5, BUN 14, Creatinine 1.00, Estimated Creat Clear 112, Estimated GFR 58 L, Est GFR ( Amer) 70, Glucose 165 H D, Calcium 9.1 I & O for Last 24 hours: Intake & Output 08/12/23 08/13/23 08/14/23 08/15/23 11:59 11:59 11:59 11:59 Intake Total 170 / 170 1225 / 1225 360 / 360 Output Total 800 / 800 0 / 0 0 / 0 Balance -630 / -630 1225 / 1225 360 / 360 Weight 231 lb 4 oz 236 lb 5.369 oz 237 lb 8 oz Constitutional Constitutional: no acute distress *Routine Respiratory Exam Respiratory: Present CTA bilaterally *Routine Cardiovascular Exam Cardiovascular: Present RRR; Absent murmur, gallop or rubs *Routine Extremities Exam Extremities: Absent cyanosis, clubbing or edema *Routine Neurological Exam Neurological: Present alert and oriented X3 Meds Home Medications and Allergies Home Medications Medication Instructions Recorded Confirmed Type atorvastatin 20 mg tablet 20 mg PO DAILY 08/12/23 08/12/23 History celecoxib 200 mg capsule 200 mg PO DAILY 08/12/23 08/12/23 History duloxetine 60 mg capsule,delayed 60 mg PO DAILY 08/12/23 08/12/23 History release gabapentin 600 mg tablet 600 mg PO TID 08/12/23 08/12/23 History olmesartan 40 mg tablet 40 mg PO DAILY 08/12/23 08/12/23 History pantoprazole 40 mg tablet,delayed 40 mg PO DAILY 08/12/23 08/12/23 History release New Prescriptions to Start Prescriptions: Allergies Allergy/AdvReac Type Severity Reaction Status Date / Time No Known Allergies Allergy Verified 08/12/23 14:32 Assessment and Plan *Assessment and plan (1) NSTEMI (non-ST elevated myocardial infarction): Status: Acute Category: Medical Code(s): I21.4 - Non-ST elevation (NSTEMI) myocardial infarction (2) Hypertension: Status: Acute Qualifiers: Hypertension type: primary hypertension Qualified Code(s): I10 - Essential (primary) hypertension Category: Medical Code(s): I10 - Essential (primary) hypertension (3) HLD (hyperlipidemia): Status: Acute Qualifiers: Hyperlipidemia type: mixed hyperlipidemia Qualified Code(s): E78.2 - Mixed hyperlipidemia Category: Medical Code(s): E78.5 - Hyperlipidemia, unspecified (4) Tobacco use: Status: Acute Category: Social Hx Code(s): Z72.0 - Tobacco use (5) HFrEF (heart failure with reduced ejection fraction): Status: Acute Category: Medical Code(s): I50.20 - Unspecified systolic (congestive) heart failure Plan 1. Non-STEMI status post MANISH to LAD -DAPT with aspirin and Effient -Started on Entresto and statin therapy -Beta-nick, mineralocorticoid and GLP-1 on hold due to low blood pressure 2. Ischemic cardiomyopathy/HFrEF -Entresto started -Limited echo today shows EF has improved to 40% -No need for LifeVest 3. Tobacco use -Cessation recommended 4. Hypertension -Now borderline low blood pressure 5. Hyperlipidemia -Continue statin therapy -check liver and lipid panel Clinically stable from cardiac standpoint for discharge home. Home medication recommendations Aspirin 81 mg daily Effient 10 mg daily Entresto twice daily Lipitor 20 mg daily Protonix 40 mg daily Follow-up in our office in 1 week for consideration of additional GDMT medications if blood pressure tolerates.
[2023-08-15] MEDS: PRASUGREL 10MG TAB 10 MG PO (09:15)
[2023-08-15] MEDS: CELECOXIB 100MG CAPSULE 200 MG PO (09:15)
[2023-08-15] MEDS: SACUBITRIL/VALSARTAN 24-26MG TABLET 1 EACH PO (09:15)
[2023-08-15] MEDS: DULOXETINE 30MG CAPSULE.DR 60 MG PO (09:15)
[2023-08-15] MEDS: GABAPENTIN 600MG TABLET 600 MG PO (09:15)
[2023-08-15] MEDS: PANTOPRAZOLE 40MG TABLET 40 MG PO (09:15)
[2023-08-15] MEDS: ASPIRIN EC 81MG TABLET 81 MG PO (09:15)
[2023-08-15 09:42] LABS: NT Pro Brain Natriuretic Pep. 1040 pg/mL (0-125)
[2023-08-15 12:00] VITALS: BP 107/67; PULSE 75; PULSE 77; RESP 20; TEMP 36.8; O2SAT 98
[2023-08-15 13:21] LABS: Alanine Aminotransferase 28 U/L (12-78); Albumin Level 3.5 g/dl (3.5-5.0); Alkaline Phosphatase 80 U/L (38-126); Aspartate Amino Transferase 32 U/L (14-36); Bilirubin,Direct 0.2 mg/dl (0.0-0.4); Bilirubin,Indirect 0.6 mg/dL (0.0-0.9); Bilirubin,Total 0.8 mg/dl (0.2-1.3); Bilirubin,Unconjugated 0.6 mg/dL (0.0-1.1); Cholesterol 140 mg/dl (140-200); HDL Cholesterol 28 mg/dl (40-60); Total Protein,Serum 6.6 g/dl (6.3-8.2); Triglycerides 103 mg/dl (30-150); VLDL Cholesterol 21 mg/dL (0-40)
--- NOTE | 2023-08-15 13:24 | EXP.DC.SUM ---
General Admission date:: 08/12/23 Discharge date: 08/15/23 HPI HPI HPI: Patient is a 52-year-old female with past medical history of hypertension hyperlipidemia who presents to the hospital due to chest pressures. According to the patient she has been feeling chest pressure for the past few days, she was evaluated at outside emergency department where she was found to have elevated troponin she was recommended to come to the [facility] for further evaluation by cardiology. Patient otherwise also complaining of shortness of breath. Patient mentions it is more like chest pressure than chest pain. Patient otherwise denied fever chills diarrhea constipation dysuria. Hospital Course Hospital Course Hospital Course: Patient is a 52-year-old female with past medical history of hypertension hyperlipidemia who presents to the hospital due to chest pressures. According to the patient she has been feeling chest pressure for the past few days, she was evaluated at outside emergency department where she was found to have elevated troponin she was recommended to come to the [facility] for further evaluation by cardiology. Patient otherwise also complaining of shortness of breath. Patient mentions it is more like chest pressure than chest pain. Patient otherwise denied fever chills diarrhea constipation dysuria. follow up with cardiology in 1 week, EF 40% which improved post cath from around 20% on admission per cardiology stable for dc per cardiology Chest pressure, elevated troponin likely NSTEMI History of CAD Hypertension Home medication recommendations Aspirin 81 mg daily Effient 10 mg daily Entresto twice daily Lipitor 20 mg daily Protonix 40 mg daily follow up with cardiology in 1 week, EF 40% which improved post cath from around 20% on admission per cardiology Exam Data for Last 24 hours Vital signs and Labs for Last 24 Hours: Temp Pulse Resp BP Pulse Ox O2 Del Method O2 Flow Rate 98.0 F 76 18 115/61 98 Room Air 2 08/15/23 08:00 08/15/23 08:00 08/15/23 08:00 08/15/23 08:00 08/15/23 08:00 08/15/23 13:00 08/15/23 08:00 FiO2 28 08/14/23 19:20 Laboratory Results - last 24 hr 08/15/23 06:13: WBC 8.4 D, RBC 4.46, Hgb 12.6, Hct 39.2, MCV 87.9, MCH 28.3, MCHC 32.2, RDW 13.7, Plt Count 296, MPV 8.9, Neut % (Auto) 61.3, Lymph % (Auto) 29.8, [place] % (Auto) 5.6, Eos % (Auto) 2.5, Baso % (Auto) 0.9, Neut # (Auto) 5.1, Lymph # (Auto) 2.5, [place] # (Auto) 0.5, Eos # (Auto) 0.2, Baso # (Auto) 0.1, Sodium 137, Potassium 3.5, Chloride 109 H, Carbon Dioxide 26, Anion Gap 5.5, BUN 14, Creatinine 1.00, Estimated Creat Clear 112, Estimated GFR 58 L, Est GFR ( Amer) 70, Glucose 165 H D, Calcium 9.1, NT-Pro-B Natriuret Pep 1040 H I & O for Last 24 hours: Intake & Output 08/12/23 08/13/23 08/14/23 08/15/23 23:59 23:59 23:59 23:59 Intake Total 915 / 1035 840 / 840 360 / 360 Output Total 0 / 800 800 / 800 0 / 0 0 / 0 Balance 0 / -800 115 / 235 840 / 840 360 / 360 Weight 105.318 kg 104.893 kg 107.2 kg 107.728 kg Constitutional Constitutional: no acute distress *Routine HEENT Exam Head: Present normocephalic Eye: Present EOMI and PERRL ENT: Present mucous membranes moist *Routine Neck Exam Neck: Present supple; Absent lymphadenopathy *Routine Respiratory Exam Respiratory: Present CTA bilaterally *Routine Cardiovascular Exam Cardiovascular: Present RRR *Routine Abdominal Exam Abdominal: Present soft and normoactive bowel sounds; Absent tenderness *Routine Extremities Exam Extremities: Absent cyanosis, clubbing or edema *Routine Skin Exam Skin: Present warm; Absent rash *Routine Neurological Exam Neurological: Present alert and oriented X3 Results Data Completed and Pending Labs on day of discharge: Labs from last 24 hours 08/15/23 06:13 WBC 8.4 D RBC 4.46 Hgb 12.6 Hct 39.2 MCV 87.9 MCH 28.3 MCHC 32.2 RDW 13.7 Plt Count 296 MPV 8.9 Neut % (Auto) 61.3 Lymph % (Auto) 29.8 [place] % (Auto) 5.6 Eos % (Auto) 2.5 Baso % (Auto) 0.9 Neut # (Auto) 5.1 Lymph # (Auto) 2.5 [place] # (Auto) 0.5 Eos # (Auto) 0.2 Baso # (Auto) 0.1 Sodium 137 Potassium 3.5 Chloride 109 H Carbon Dioxide 26 Anion Gap 5.5 BUN 14 Creatinine 1.00 Estimated Creat Clear 112 Estimated GFR 58 L Est GFR ( Amer) 70 Glucose 165 H D Calcium 9.1 NT-Pro-B Natriuret Pep 1040 H DS: Diagnosis Discharge Diagnosis (1) NSTEMI (non-ST elevated myocardial infarction): Status: Acute Code(s): I21.4 - Non-ST elevation (NSTEMI) myocardial infarction (2) Hypertension: Status: Acute Code(s): I10 - Essential (primary) hypertension Qualifiers: Hypertension type: primary hypertension Qualified Code(s): I10 - Essential (primary) hypertension (3) HLD (hyperlipidemia): Status: Acute Code(s): E78.5 - Hyperlipidemia, unspecified Qualifiers: Hyperlipidemia type: mixed hyperlipidemia Qualified Code(s): E78.2 - Mixed hyperlipidemia (4) Tobacco use: Status: Acute Code(s): Z72.0 - Tobacco use (5) HFrEF (heart failure with reduced ejection fraction): Status: Acute Code(s): I50.20 - Unspecified systolic (congestive) heart failure Meds Home Medications and Allergies Home Medications Medication Instructions Recorded Confirmed Type atorvastatin 20 mg tablet 20 mg PO DAILY 08/12/23 08/12/23 History celecoxib 200 mg capsule 200 mg PO DAILY 08/12/23 08/12/23 History duloxetine 60 mg capsule,delayed 60 mg PO DAILY 08/12/23 08/12/23 History release gabapentin 600 mg tablet 600 mg PO TID 08/12/23 08/12/23 History pantoprazole 40 mg tablet,delayed 40 mg PO DAILY 08/12/23 08/12/23 History release aspirin 81 mg tablet,delayed 81 mg PO DAILY 30 days #30 tabs 08/15/23 Rx release prasugrel 10 mg tablet 10 mg PO DAILY 30 days #30 tabs 08/15/23 Rx sacubitril 24 mg-valsartan 26 mg 1 tab PO BID 30 days #60 tabs 04/22/24 Rx tablet (Entresto) New Prescriptions to Start Prescriptions: aspirin Elia Bowser prasugrel Elia Bowser sacubitril-valsartan [Entresto] Elia Bowser Allergies Allergy/AdvReac Type Severity Reaction Status Date / Time No Known Allergies Allergy Verified 08/12/23 14:32 Discharge Plan Disposition Patient Disposition: Home, Self-Care Condition: Good Discharge Order Discharge Orders: Discharge Order (Routine); Ordered 08/15/23 Ordered By: Elia Bowser Follow up Plan Follow up with: Ameya House [Primary Care Provider] - Enter time for follow up (please call for appointment ) Tomas Estrada MD [Staff Physician] - 08/22/23 9:00 am Prescriptions/Medication Reconciliation: New aspirin 81 mg Tablet,Delayed Release (Dr/Ec) 81 mg PO DAILY 30 Days Qty: 30 0RF prasugrel 10 mg Tablet 10 mg PO DAILY 30 Days Qty: 30 0RF Entresto 24-26 mg Tablet 1 tab PO BID 30 Days Qty: 60 0RF Continued celecoxib 200 mg capsule 200 mg PO DAILY Patient Comments: TAKE 1 CAPSULE BY MOUTH ONCE DAILY gabapentin 600 mg tablet 600 mg PO TID Patient Comments: TAKE 1 TABLET BY MOUTH EVERY 8 HOURS atorvastatin 20 mg tablet 20 mg PO DAILY Patient Comments: TAKE 1 TABLET BY MOUTH ONCE DAILY pantoprazole 40 mg tablet,delayed release (DR/EC) 40 mg PO DAILY Patient Comments: TAKE 1 TABLET BY MOUTH ONCE DAILY duloxetine 60 mg capsule,delayed release(DR/EC) 60 mg PO DAILY Patient Comments: TAKE 1 CAPSULE BY MOUTH ONCE DAILY Discontinued olmesartan 40 mg tablet 40 mg PO DAILY Patient Comments: TAKE 1 TABLET BY MOUTH ONCE DAILY Problem Reconciliation Problems Reviewed?: Yes Patient Discharge Instructions ACTIVITY: Ambulate as tolerated DIET: continue same diet Patient Instructions: Cardiac Catheterization, DI for Cardiac Catheterization, DI for Chest Pain, Low-Sodium Diet Providers Primary Care Provider: Ameya House Admit Provider: Elia Bowser Attending Provider: Elia Bowser
--- NOTE | 2023-08-15 13:33 | HMH.PHAINT1 ---
Pharmacy Intervention Comments: DISCHARGE MEDICATION COUNSELING WAS PROVIDED TO PATIENT AND FAMILY MEMBER ON ASPIRIN, PRASUGREL, AND ENTRESTO FOR INDICATION, DOSE, AND POSSIBLE SIDE EFFECTS; WELL STOPPING OLMESARTAN. PATIENT VERBALIZED UNDERSTANDING WITH NO FURTHER QUESTIONS.
--- NOTE | 2023-08-15 14:18 | PC.NURSE ---
ra sat after getting dressed 97%.
--- NOTE | 2023-08-17 12:19 | CARE MANAGER ---
Attempted to contact patient x2 related to hospital discharge. No VM option. DANIEL Doyle
== END 2023-08-15 15:32 | disposition home or self-care (01) | DRG 322 ==
PROVIDERS: Internal Medicine; Nurse Practitioner Family; Physician Assistant; Admitting Provider Internal Medicine; PCP Pediatrics; Visit Provider Internal Medicine
PROC: 027035Z Dilation of Coronary Artery, One Artery with Two Drug-eluting Intraluminal Devices, Percutaneous Approach (ICD-10-PCS; principal; 2023-08-12 14:15)
DX: I21.09 ST elevation (STEMI) myocardial infarction involving other coronary artery of anterior wall (principal); I50.20 Unspecified systolic (congestive) heart failure; E78.5 Hyperlipidemia, unspecified; F17.210 Nicotine dependence, cigarettes, uncomplicated; I25.10 Atherosclerotic heart disease of native coronary artery without angina pectoris; I25.5 Ischemic cardiomyopathy; I11.0 Hypertensive heart disease with heart failure
CPT/HCPCS: 36415; 71045; 80048; 80061; 80076; 83880; 84484; 85007; 85025; 85347; 92941; 92978; 92979; 93005; 93306; 93308; 93454; 94761; 99152; 99153; C1725; C1769; C1876; C9606; J1644; Q9967

== ENCOUNTER 2023-09-16 07:52 | Outpatient (CLI) | payer BC, SELFPAY ==
--- NOTE | 2023-09-16 08:00 | CA_ITS ---
APPROVED REPORT EXAM: Comprehensive 2D, Doppler, and color-flow Echocardiogram [place] Detective: JOE Sandoval, RVS Ht: 5 ft 8 in Wt: 231lbs BSA: 2.17 BP: 99/63 mmHg Indications: CAD, H/o-CM. HFrEF, Smoker, HTN, HLD 2D Dimensions IVSd 0.96 cm LVEF (Visual) 50.00 % PWd 0.98 cm LVDd 5.85 cm LVDs 3.61 cm M-Mode Dimensions LA Diam 4.31 cm (1.9-4.0) LVDd 5.72 cm (3.5-5.7) LVDs 4.30 cm (3.5-5.7) EF (Teich) 48.50% EPSs 1.18 cm FS 24.80% EDV (Teich) 161.30 mL ESV (Teich) 83.10 mL Other Information Study Quality: Adequate Conclusion This is a limited TTE to evaluate for LVEF in the setting of recent [place] and ischemic cardiomyopathy (prior LVEF 20%). Limited windows were obtained. The left ventricle is normal in size. There is increased LV wall thickness. There is normal LV systolic function. No wall motion abnormalities are noted. LVEF is 55%. Compared to prior study from 07/2023, the regional wall motion of the LV and the LVEF are improved and are now both normal. Electronically signed by : Una Orozco MD 09/19/2023 00:06:55
== END 2023-09-16 23:59 | disposition home or self-care (01) ==
LOC: RT 07:53
PROVIDERS: PCP Pediatrics; Visit Provider Physician Assistant
DX: R06.09 Other forms of dyspnea (principal); I25.5 Ischemic cardiomyopathy; I25.10 Atherosclerotic heart disease of native coronary artery without angina pectoris; I50.20 Unspecified systolic (congestive) heart failure; E78.2 Mixed hyperlipidemia; I10 Essential (primary) hypertension; I21.4 Non-ST elevation (NSTEMI) myocardial infarction
CPT/HCPCS: 93308

== ENCOUNTER 2024-02-06 10:21 | Outpatient (CLI) | payer BC, SELFPAY ==
--- NOTE | 2024-02-06 10:28 | CA_ITS ---
APPROVED REPORT EXAM: Limited 2D Echocardiogram Spiral Tube Winder Helper: Libia Maya CRT Ht: 5 ft 8 in Wt: 231lbs BSA: 2.17 BP: 115/85 mmHg Indications: EF check ef 55% 09/16/23 ef 45% 08/15/23 ef 20% 08/12/23 M-Mode Dimensions RVDd 2.55 cm (0.9-2.6) LA Diam 3.62 cm (1.9-4.0) LVDd 5.17 cm (3.5-5.7) LVDs 3.72 cm (3.5-5.7) IVSd 2.43 cm (0.6-1.1) PWd 1.06 cm (0.6-1.1) EF (Teich) 53.90% FS 28.00% EDV (Teich) 127.80 mL ESV (Teich) 58.90 mL Other Information Study Quality: Adequate Conclusion This is a limited TTE to evaluate for LVEF. Limited windows were obtained. The LV is normal in size. There is increased LV wall thickness. There is normal global LV systolic function. No regional wall motion abnormalities are noted. LVEF is 55%. Compared to prior study from 08/2023, the LVEF is overall unchanged. Electronically signed by : Una Orozco MD 02/06/2024 23:56:59
[2024-02-06 11:21] LABS: Basophils # 0.1 K/mm3 (0-0.2); Eosinophils # 0.1 K/mm3 (0.0-0.4); Eosinophils % 2.1 % (0.1-12.0); Hematocrit 43.8 % (37.0-47.0); Hemoglobin 14.5 g/dL (12.2-16.2); Lymphocytes # 1.9 K/mm3 (0.7-4.5); Lymphocytes % 29.1 % (10-50); Mean Corpuscular HGB Conc 33.2 g/dL (31.8-35.4); Mean Corpuscular Hemoglobin 28.6 pg (27.0-31.2); Mean Corpuscular Volume 86.1 fl (81-99); Monocytes # 0.4 K/mm3 (0.1-1.0); Monocytes % 5.7 % (1.7-9.3); Neutrophils % 62.1 % (37.0-80.0); Platelet Count 287 K/mm3 (142-424); Red Blood Count 5.09 M/mm3 (4.20-5.40); Red Cell Distribution Width 13.5 % (11.5-17.5); White Blood Count 6.5 K/mm3 (4.8-10.8)
[2024-02-06 12:08] LABS: Albumin Level 4.2 g/dl (3.5-5.0); Chloride 109 mmol/L (98-107); Potassium 4.8 mmoL/L (3.5-5.1); Sodium 140 mmol/L (136-145)
[2024-02-06 12:10] LABS: Blood Urea Nitrogen 16 mg/dl (7-17); Estimated Glomerular Filt Rate 58 ml/min (>60); GFR (African American) 70 ML/MIN (>60)
[2024-02-06 12:11] LABS: Alanine Aminotransferase 18 U/L (12-78); Alkaline Phosphatase 86 U/L (38-126); Anion Gap 8.8 mEq/L (5-15); Aspartate Amino Transferase 21 U/L (14-36); Bilirubin,Direct 0.2 mg/dl (0.0-0.4); Bilirubin,Indirect 0.6 mg/dL (0.0-0.9); Bilirubin,Total 0.8 mg/dl (0.2-1.3); Bilirubin,Unconjugated 0.6 mg/dL (0.0-1.1); Calcium 9.6 mg/dl (8.4-10.2); Carbon Dioxide 27 mmol/L (22.0-30.0); Chol/HDL Ratio 3.8 (1-3.5); Cholesterol 154 mg/dl (140-200); Glucose 102 mg/dl (74-100); HDL Cholesterol 41 mg/dl (40-60); Total Protein,Serum 6.8 g/dl (6.3-8.2); Triglycerides 86 mg/dl (30-150); VLDL Cholesterol 17 mg/dL (0-40)
[2024-02-06 12:20] LABS: NT Pro Brain Natriuretic Pep. 37.1 pg/mL (0-125)
[2024-02-06 12:22] LABS: Direct LDL Cholesterol 72.13 mg/dL (100-129)
[2024-02-06 12:42] LABS: Thyroid Stimulating Hormone 0.66 uIU/mL (0.465-4.68)
== END 2024-02-06 23:59 | disposition home or self-care (01) ==
PROVIDERS: PCP Pediatrics; Visit Provider Physician Assistant
DX: I11.0 Hypertensive heart disease with heart failure (principal); I25.10 Atherosclerotic heart disease of native coronary artery without angina pectoris; I50.32 Chronic diastolic (congestive) heart failure; I25.5 Ischemic cardiomyopathy; E78.2 Mixed hyperlipidemia
CPT/HCPCS: 36415; 80048; 80061; 80076; 83880; 84439; 84443; 85025; 93308

== ENCOUNTER 2024-09-12 06:51 | Outpatient (CLI) | payer BC, SELFPAY ==
--- NOTE | 2024-09-12 | CA_ITS ---
APPROVED REPORT Exam: Pharmacologic Technologist: Sidra Lujan Ht: 5 ft 8 in Wt: 247 lbs BSA: 2.24 m2 Stress Test Details Test: Lexiscan HR Resting HR: 64 bpm Max Heart Rate (APMHR): 167 bpm Max HR Achieved: 79 bpm Target HR (85% APMHR): 142 bpm % of APMHR: 47 Recovery HR: 71 bpm BP Resting BP: 127.0/76.0 mmHg Max BP: 148.0/79.0 mmHg Recovery BP: 148.0/79.0 mmHg ECG Resting ECG: NSR, early repolarization changes. Stress ECG Conclusion Symptoms: None. Arrhythmias/Ectopy: None. ST-T Changes: <1.5mm ST Segment changes. Conclusion: Non-Diagnostic Lexiscan stress. Electronically signed by : Una Orozco MD 09/12/2024 13:25:18
--- OUTSIDE RECORDS SUMMARY | 2024-09-12 06:54 | XMS_ITS | Data Portability ---
Author Organization [place] [facility] [place] [facility] ADMIN Address [address] [place] [id number] Care Team Providers Care Slate Cutter Name Role Phone AMEYA HOUSE Primary Care Provider Assessment Encounter Date Assessment Date Assessment LastModified by Organization Details LastModified Time 07/24/2024 07/24/2024 ASSESSMENT: - Tingling sensation in lower back and legs. - Overactive bladder symptoms. - Elevated blood pressure. PLAN: I increased the patient's metoprolol dosage from 25 mg once a day to 50 mg once a day to help manage her blood pressure. I completed the necessary paperwork for her to return to work on 07/30 without any restrictions. [email or web address] Not available 08/12/2024 21:41:23 08/09/2024 08/09/2024 ASSESSMENT: - Severe back pain - Fibromyalgia - Numbness and tingling in the left leg - Numbness and tingling in the arms - Chest pain -- around lateral chest wall from back PLAN: - Referral to a pain coordinator to explore options for managing chronic pain. - Order MRI of the cervical spine and lumbar spine to evaluate for any new issues causing numbness and tingling in the arms and legs. - Provide [place] paperwork to protect the patient from being docked for missed days at work. - Discuss with the patient the importance of going to the ER if she experiences chest pain similar to her previous heart attack. - Consider physical therapy to help manage pain and improve function. 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 [email or web address] Not available 08/12/2024 20:22:24 08/16/2024 08/16/2024 Images reviewed today thoracic MRI: minimal DDD cervicalMRI 09/2022: DDD, C3/4 central stenosis 08/16/2024: Plan Today, I discussed with the patient about my current findings based on their history and/or physical exam. They have multiple pain generators, however I will treat their pain in a stepwise plan as outlined below. Platelet Inhibition due to ASA, Prasugrel -Patient will need permission from prescribing physician to hold ASA, Prasugrel for 7 days prior to any neuraxial procedure due to increase risk of bleeding/hematom a per ARSA guidelines 1. #Axial Thoracic Back Pain, Chronic worsening #Thoracic Spondylosis #Right Rib pain - patient has completed PT and other conservative therapies that were listed in the HPI. They remain symptomatic and have failed conservative therapies. - Patient has thoracic spine pain with referred sx's to the right at T9-T11. Discussed performing right sided T9-T11 intercostal nerve block via fluoro and U/s guidance. Patient agreed to this plan. She will need to get cardiac clearance to hold her ASA and Prasugrel - f/u in 2-4 weeks 2. #Fibromyalgia, Chronic worsening #Chronic Complex Widespread Pain -Meets diagnostic criteria for fibromyalgia -Recommended conservative Tx :CV exercise, PT or aquatic physical therapy, CBT, acupuncture, healthy diet, Wt loss, OMT, mindfulness meditation - Consider [facility]'s [employer] Education as a resource 3. #Myofascial Pain Syndrome,Chronic worsening -Trigger points noted in the b/l levator scapulae, rhomboid minor, semispinalis, splenius capitis, and trapezius, thoracic paraspinal muscles, major rhomboids, minor rhomboids, erector spinae, multifidus, quadratus lumborum, latissmus dorsi -Would recommend treatment options including PT, OMT, acupuncture -Will consider to order TPI's - Rx methocarbamol 750mg 1-2 times /day Not available 08/20/2024 21:31:56 Plan of Treatment Reminders Order Date Submit Date Provider Last Modified By Organization Details Last Modified Time Details Appointments PROC 2024 09:15A Pilar SANTOS, DO Not available Not available Not available OV EST 2024 03:00P Pilar SANTOS, DO Not available Not available Not available PROC 2024 01:45P Pilar SANTOS, DO Not available Not available Not available OV EST 2024 09:40A M Ameya House MD Not available Not available Not available Lab drug screen, 14 drugs (detectim ed), urine 2024 025 VIANNEY [facility], [address], [address], [place], [address], 07/28/2024 07:03:57 HbA1c (hemoglob in A1c), blood 2023 024 VIANNEY [facility], [address], [address], [place], [address], 01/13/2024 09:39:52 CBC w/ auto diff 2023 024 VIANNEY [facility], [address], [address], [place], [address], 01/13/2024 09:39:51 drug screen, 14 drugs (detectim ed), urine 2023 024 VIANNEY [facility], [address], [address], [place], [address], 01/18/2024 09:39:08 CMP, serum or plasma 2023 024 VIANNEY [facility], [address], [address], [place], [address], 01/13/2024 09:39:51 lipid panel, serum 2023 024 VIANNEY [facility], [address], [address], [place], [address], 01/13/2024 09:39:52 Referral pain managemen t referral 2024 025 VIANNEY [facility], [address] , [address], [place], [address], 09/10/2024 04:13:43 Procedures nerve block, intercost al (PROC) - [address], 68[address] right T9-t11 intercost al nerve block 2024 025 [email or web address] Ebenezer Ming DO, [address] [facility], [facility] [address], [place], [address], 08/21/2024 08:14:31 Surgeries None recorded. Imaging MRI, lumbar spine, w/o contrast 2024 025 [facility] (Centralized Scheduling), [address] [place], [address], 09/09/2024 04:02:56 MRI, cervical spine, w/o contrast 2024 025 [facility] (Centralized Scheduling), [address] [place], [address], 09/09/2024 04:02:56 Medication Orders methocarb ines 750 mg tablet 2024 025 [facility], [address] [place] [address], [address], 08/16/2024 15:43:04 lidocaine 5 % topical patch 2024 025 [facility], [address] [place] [address], [address], 08/16/2024 15:43:03 metoprolo l succinate ER 50 mg tablet,ex tended release 24 hr 2024 025 [email or web address] [facility], [address] [place] [address], [address], 08/20/2024 09:48:07 nicotine 21 mg/24 hr daily transderm al patch 2023 024 [facility], [address] [place] [address], [address], 01/12/2024 15:39:18 atorvasta tin 40 mg tablet 2023 024 [facility] [address] [place], [address], 09/02/2023 10:09:11 Patient TargetsNo targets recorded. Patient InstructionsNo instructions recorded. Reason for Referral Pain Management Referral for Chronic low back pain Referring Physician: Ameya House, Internal Medicine, Encounter Date: 08/09/2024 Results Created Date Observation Date Name Description Value Unit Range Abnormal Flag Note LastModifiedBy Organization Detail LastModifiedTime 01/12/20 24 01/13/2024 CMP14 +EGFR glucose 91 mg/dL 70-99 normal Not Available [facility] ([facility]) [address] [place], [address], 01/13/2024 09:39:51 01/12/20 24 01/13/2024 CMP14 +EGFR BUN 9 mg/dL 6-24 normal Not Available [facility] ([facility]) [address] [place], [address], 01/13/2024 09:39:51 01/12/20 24 01/13/2024 CMP14 +EGFR creatinine 0.99 mg/dL 0.57-1 .00 normal Not Available [facility] ([facility]) [address] [place], [address], 01/13/2024 09:39:51 01/12/20 24 01/13/2024 CMP14 +EGFR eGFR 68 mL/mi n/1.7 3 >59 normal Not Available [facility] ([facility]) [address] [place], [address], 01/13/2024 09:39:51 01/12/20 24 01/13/2024 CMP14 +EGFR BUN/creatini ne ratio 9 9-23 normal Not Available [facility] ([facility]) [address] [place], [address], 01/13/2024 09:39:51 01/12/20 24 01/13/2024 CMP14 +EGFR sodium 140 mmol/ L 134-14 4 normal Not Available [facility] ([facility]) [address] [facility], [place], [address], 01/13/2024 09:39:51 01/12/20 24 01/13/2024 CMP14 +EGFR potassium 5.0 mmol/ L 3.5-5. 2 normal Speci men recei katlin hemol yzed. Value may be incre ased by hemol ysis. Clini gómez corre latio n indic ated. Not Available [facility] ([facility]) [address] [facility], [place], [address], 01/13/2024 09:39:51 01/12/20 24 01/13/2024 CMP14 +EGFR chloride 102 mmol/ L 96-106 normal Not Available [facility] ([facility]) [address] [facility], [place], [address], 01/13/2024 09:39:51 01/12/20 24 01/13/2024 CMP14 +EGFR carbon dioxide, total 21 mmol/ L 20-29 normal Not Available [facility] ([facility]) [address] [place], [address], 01/13/2024 09:39:51 01/12/20 24 01/13/2024 CMP14 +EGFR calcium 9.8 mg/dL 8.7-10 .2 normal Not Available [facility] ([facility]) [address] [place], [address], 01/13/2024 09:39:51 01/12/20 24 01/13/2024 CMP14 +EGFR protein, total 7.2 g/dL 6.0-8. 5 normal Not Available [facility] ([facility]) [address] [place], [address], 01/13/2024 09:39:51 01/12/20 24 01/13/2024 CMP14 +EGFR albumin 4.2 g/dL 3.8-4. 9 normal Not Available [facility] ([facility]) [address] [place], [address], 01/13/2024 09:39:51 01/12/20 24 01/13/2024 CMP14 +EGFR globulin, total 3.0 g/dL 1.5-4. 5 Not Available [facility] ([facility]) [address] [place], [address], 01/13/2024 09:39:51 01/12/20 24 01/13/2024 CMP14 +EGFR bilirubin, total <0.2 mg/dL 0.0-1. 2 Not Available [facility] ([facility]) [address] [place], [address], 01/13/2024 09:39:51 01/12/20 24 01/13/2024 CMP14 +EGFR alkaline phosphatase 118 IU/L 44-121 normal Not Available [facility] [address] [facility], [place], [address], 01/13/2024 09:39:51 01/12/20 24 01/13/2024 CMP14 +EGFR AST (SGOT) 22 IU/L 0-40 normal Not Available [facility] ([facility]) [address] [place], [address], 01/13/2024 09:39:51 01/12/20 24 01/13/2024 CMP14 +EGFR ALT (SGPT) 14 IU/L 0-32 normal Not Available [facility] ([facility]) [address] [place], [address], 01/13/2024 09:39:51 01/12/20 24 01/13/2024 CBC WITH DIFFE RENTI AL/PL ATELE T WBC 11.8 x10e3 /uL 3.4-10 .8 above high normal Not Available [facility] ([facility]) [address] [place], [address], 01/13/2024 09:39:51 01/12/20 24 01/13/2024 CBC WITH DIFFE RENTI AL/PL ATELE T RBC 5.36 x10e6 /uL 3.77-5 .28 above high normal Not Available [facility] ([facility]) [address] [place], [address], 01/13/2024 09:39:51 01/12/20 24 01/13/2024 CBC WITH DIFFE RENTI AL/PL ATELE T hemoglobin 15.0 g/dL 11.1-1 5.9 normal Not Available [facility] ([facility]) [address] [place], [address], 01/13/2024 09:39:51 01/12/20 24 01/13/2024 CBC WITH DIFFE RENTI AL/PL ATELE T hematocrit 46.8 % 34.0-4 6.6 above high normal Not Available [facility] ([facility]) [address] [place], [address], 01/13/2024 09:39:51 01/12/20 24 01/13/2024 CBC WITH DIFFE RENTI AL/PL ATELE T MCV 87 fL 79-97 normal Not Available [facility] ([facility]) [address] [place], [address], 01/13/2024 09:39:51 01/12/20 24 01/13/2024 CBC WITH DIFFE RENTI AL/PL ATELE T MCH 28.0 pg 26.6-3 3.0 normal Not Available [facility] ([facility]) [address] [place], [address], 01/13/2024 09:39:51 01/12/20 24 01/13/2024 CBC WITH DIFFE RENTI AL/PL ATELE T MCHC 32.1 g/dL 31.5-3 5.7 normal Not Available [facility] ([facility]) [address] [place], [address], 01/13/2024 09:39:51 01/12/20 24 01/13/2024 CBC WITH DIFFE RENTI AL/PL ATELE T RDW 12.5 % 11.7-1 5.4 Not Available [facility] ([facility]) [address] [facility], [place], [address], 01/13/2024 09:39:51 01/12/20 24 01/13/2024 CBC WITH DIFFE RENTI AL/PL ATELE T platelets 345 x10e3 /uL 150-45 0 normal Not Available [facility] ([facility]) [address] [facility], [place], [address], 01/13/2024 09:39:51 01/12/20 24 01/13/2024 CBC WITH DIFFE RENTI AL/PL ATELE T neutrophils 63 % not estab. normal Not Available [facility] ([facility]) [address] [facility], [place], [address], 01/13/2024 09:39:51 01/12/20 24 01/13/2024 CBC WITH DIFFE RENTI AL/PL ATELE T lymphs 29 % not estab. normal Not Available [facility] ([facility]) [address] [facility], [place], [address], 01/13/2024 09:39:51 01/12/20 24 01/13/2024 CBC WITH DIFFE RENTI AL/PL ATELE T monocytes 7 % not estab. normal Not Available [facility] ([facility]) [address] [facility], [place], [address], 01/13/2024 09:39:51 01/12/20 24 01/13/2024 CBC WITH DIFFE RENTI AL/PL ATELE T eos 1 % not estab. normal Not Available [facility] ([facility]) [address] [facility], [place], [address], 01/13/2024 09:39:51 01/12/20 24 01/13/2024 CBC WITH DIFFE RENTI AL/PL ATELE T basos 0 % not estab. normal Not Available [facility] ([facility]) [address] [place], [address], 01/13/2024 09:39:51 01/12/20 24 01/13/2024 CBC WITH DIFFE RENTI AL/PL ATELE T immature cells [employer]RI[employer]OR Not Available [facility] ([facility]) [address] [place], [address], 01/13/2024 09:39:51 01/12/20 24 01/13/2024 CBC WITH DIFFE RENTI AL/PL ATELE T neutrophils (absolute) 7.3 x10e3 /uL 1.4-7. 0 above high normal Not Available [facility] ([facility]) [address] [place], [address], 01/13/2024 09:39:51 01/12/20 24 01/13/2024 CBC WITH DIFFE RENTI AL/PL ATELE T lymphs (absolute) 3.5 x10e3 /uL 0.7-3. 1 above high normal Not Available [facility] ([facility]) [address] [place], [address], 01/13/2024 09:39:51 01/12/20 24 01/13/2024 CBC WITH DIFFE RENTI AL/PL ATELE T monocytes(ab solute) 0.8 x10e3 /uL 0.1-0. 9 normal Not Available [facility] ([facility]) [address] [place], [address], 01/13/2024 09:39:51 01/12/20 24 01/13/2024 CBC WITH DIFFE RENTI AL/PL ATELE T eos (absolute) 0.2 x10e3 /uL 0.0-0. 4 normal Not Available [facility] ([facility]) [address] [place], [address], 01/13/2024 09:39:51 01/12/20 24 01/13/2024 CBC WITH DIFFE RENTI AL/PL ATELE T baso (absolute) 0.1 x10e3 /uL 0.0-0. 2 normal Not Available [facility] ([facility]) [address] [facility], [place], [address], 01/13/2024 09:39:51 01/12/20 24 01/13/2024 CBC WITH DIFFE RENTI AL/PL ATELE T immature granulocytes 0 % not estab. Not Available [facility] ([facility]) [address] [facility], [place], [address], 01/13/2024 09:39:51 01/12/20 24 01/13/2024 CBC WITH DIFFE RENTI AL/PL ATELE T immature grans (abs) 0.0 x10e3 /uL 0.0-0. 1 Not Available [facility] ([facility]) [address] [facility], [place], [address], 01/13/2024 09:39:51 01/12/20 24 01/13/2024 CBC WITH DIFFE RENTI AL/PL ATELE T NRBC [employer] Not Available [facility] ([facility]) [address] [facility], [place], [address], 01/13/2024 09:39:51 01/12/20 24 01/13/2024 CBC WITH DIFFE RENTI AL/PL ATELE T hematology comments: [employer]RI[employer]OR Not Available [facility] ([facility]) [address] [facility], [place], [address], 01/13/2024 09:39:51 01/12/20 24 01/13/2024 LIPID PANEL cholesterol, total 170 mg/dL 100-19 9 normal Not Available [facility] ([facility]) [address] [place], [address], 01/13/2024 09:39:52 01/12/20 24 01/13/2024 LIPID PANEL triglyceride s 176 mg/dL 0-149 above high normal Not Available [facility] ([facility]) [address] [place], [address], 01/13/2024 09:39:52 01/12/20 24 01/13/2024 LIPID PANEL HDL cholesterol 41 mg/dL >39 normal Not Available [facility] ([facility]) [address] [place], [address], 01/13/2024 09:39:52 01/12/20 24 01/13/2024 LIPID PANEL VLDL cholesterol gómez 31 mg/dL 5-40 Not Available [facility] ([facility]) [address] [place], [address], 01/13/2024 09:39:52 01/12/20 24 01/13/2024 LIPID PANEL LDL chol calc ([facility]) 98 mg/dL 0-99 Not Available [facility]) [address] [place], [address], 01/13/2024 09:39:52 01/12/20 24 01/13/2024 LIPID PANEL LDL calc comment: [employer]OR Not Available [facility] ([facility]) [address] [facility], [place], [address], 01/13/2024 09:39:52 01/12/20 24 01/13/2024 HEMOG LOBIN A1C hemoglobin A1C 5.8 % 4.8-5. 6 above high normal Predi abete s: 5.7 - 6.4 Diabe zeynep: >6.4 Glyce araseli contr ol for adult s with diabe zeynep: <7.0 Not Available [facility] ([facility]) [address] [place], [address], 01/13/2024 09:39:52 01/12/20 24 01/18/2024 COMPL IANCE DRUG REUBEN SIS, UR summary report (summary) FINAL ===== ===== ===== ===== ===== ===== ===== ===== ===== ===== ===== ===== ===== === TOXAS SURE COMP DRUG REUBEN SIS,U R ===== ===== ===== ===== ===== ===== ===== ===== ===== ===== ===== ===== ===== === Test Resul t Flag Units Drug Prese nt Gabap entin PRESE NT Ibupr ofen PRESE NT Diphe nhydr amine PRESE NT ===== ===== ===== ===== ===== ===== ===== ===== ===== ===== ===== ===== ===== === Test Resul t Flag Units Ref Range Creat inine 42 mg/dL >=20 ===== ===== ===== ===== ===== ===== ===== ===== ===== ===== ===== ===== ===== === Decla red Medic ation s: Medic ation list was not provi ded. ===== ===== ===== ===== ===== ===== ===== ===== ===== ===== ===== ===== ===== === For clini gómez consu ltati on, pleas e call . ===== ===== ===== ===== ===== ===== ===== ===== ===== ===== ===== ===== ===== === Not Available [facility] ([facility]) [address] [facility], [place], [address], 01/18/2024 09:39:08 01/12/20 24 01/18/2024 COMPL IANCE DRUG REUBEN SIS, UR pdf . Not Available [facility] ([facility]) [address] [facility], [place], [address], 01/18/2024 09:39:08 07/25/19 25 07/27/2024 COMPL IANCE DRUG REUBEN SIS, UR summary report (summary) FINAL ===== ===== ===== ===== ===== ===== ===== ===== ===== ===== ===== ===== ===== === TOXAS SURE COMP DRUG REUBEN SIS,U R ===== ===== ===== ===== ===== ===== ===== ===== ===== ===== ===== ===== ===== === Test Resul t Flag Units Drug Prese nt Gabap entin PRESE NT Dulox etine PRESE NT Queti apine PRESE NT Metop rolol PRESE NT ===== ===== ===== ===== ===== ===== ===== ===== ===== ===== ===== ===== ===== === Test Resul t Flag Units Ref Range Creat inine 50 mg/dL >=20 ===== ===== ===== ===== ===== ===== ===== ===== ===== ===== ===== ===== ===== === Decla red Medic ation s: Medic ation list was not provi ded. ===== ===== ===== ===== ===== ===== ===== ===== ===== ===== ===== ===== ===== === For shireen magaña consu ltati on, pleas e call . ===== ===== ===== ===== ===== ===== ===== ===== ===== ===== ===== ===== ===== === Not Available [facility] ([facility]) [address] [facility], [place], [address], 07/28/2024 07:03:57 07/25/19 25 07/27/2024 COMPL IANCE DRUG REUBEN SIS, UR pdf . Not Available [facility] ([facility]) [address] [facility], [place], [address], 07/28/2024 07:03:57 08/13/19 24 08/13/2023 XR, chest , 2 view No observ ation record ed. [email or web address] [facility] [address], [place], [address], 08/22/2023 14:40:29 08/14/19 24 08/12/2023 elect araceli sparrow am No observ ation record ed. [email or web address] [facility] [address], [place], [address], 08/22/2023 14:39:42 08/17/19 24 08/12/2023 US, echoc ardio gram, trans thora cic, compl ete, w/ color flow No observ ation record ed. [facility] [address], [place], [address], 08/21/2023 18:19:22 08/17/19 24 08/15/2023 US, echoc ardio gram, trans thora cic, compl ete, w/ color flow No observ ation record ed. VIANNEY [facility] [address], [place], [address], 08/21/2023 18:19:23 09/19/19 24 09/16/2023 US, doppl er echoc ardio gram No observ ation record ed. [email or web address] [facility] [address], [place], [address], 09/26/2023 11:02:59 12/22/1912/22/2023 MAMMO , scree pratibha, digit al, bilat eral No observ ation record ed. [email or web address] [place] [address] (Radiology) [address] , [place], [address], 01/17/2024 10:43:31 02/07/2002/06/2024 stres s echoc ardio gram No observ ation record ed. [address], [place], [address], 02/08/2024 15:27:47 Result Notes None recorded. Problems Name Problem SNOMED Code Status Onset Date Resolution Date Notes Provider Name and Address Organization Details Recorded Time Coronary arteriosc lerosis 26921685 Active 2023 Ameya House MD [address], [place], [address] , [facility] & [place] 4 08:31:50 Myofascia l pain 616678492 Active [address], [place], [address] , [facility] & [place] 5 15:40:33 Lumbar spondylos is 403408739 Active [address], [place], [address] , [place] [facility] [place] [facility] [place] 5 15:40:34 Subjectiv e tinnitus of right ear 85182208550 06227 Active Kiki Kasper null, [place] [facility] [place] [facility] [place] 5 09:48:12 Dysphagia 21952483 Active Kiki Kasper null, [place] [facility] [place] [facility] [place] 5 09:48:12 Tinnitus of right ear 47256402300 08 Active Kiki Kasper null, [place] [facility] [place] [facility] [place] 5 09:48:12 Cervical spondylos is 796149361 Active 2024 EBENEZER SANTOS DO [address] [facility], [place], [address] , [facility] & [place] 5 21:22:23 Periphera l neuralgia 70201378 Active 2024 EBENEZER SANTOS DO [address] , [place], [address] , [facility] & [place] 5 21:23:36 Mild recurrent major depressio n 71465420 Active Ameya House MD [address] , [place], [address] , [facility] & [place] 2 16:18:39 Degenerat ion of thoracic intervert ebral disc 36207124 Active Ameya House MD [address] , [place], [address] , [place] [facility] & [place] 2 16:18:39 Essential hypertens ion 36781753 Active Ameya House MD [address] , [place], [address] , [place] [facility] & [place] 2 16:18:39 Subjectiv e tinnitus of right ear 46369057940 [address] Completed 03/01/2022 Ameya House MD [address] , [place], [address] , [place] [facility] & [place] 2 16:18:48 Chronic pain syndrome 675158431 Active EBENEZER SANTOS DO [address] [facility], [place], [address] , [place] [facility] & [place] 5 21:22:23 Tinnitus of right ear 12037860828 08 Completed 03/01/2022 Ameya House MD [address] [facility], [place], [address] , [place] [facility] & [place] 2 16:18:48 Chronic kidney disease stage 1 435388465 Active Ameya House MD [address] [facility], [place], [address] , [place] [facility] & [place] 2 16:18:39 Chronic pain 22773937 Active Ameya House MD [address] , [place], [address] , [place] [facility] & [place] 2 16:18:39 Migraine 91082462 Active Ameya House MD [address] [facility], [place], [address] , [place] [facility] [place] 2 16:18:39 Thoracic spondylos is 960496373 Active Ameya House MD [address] [facility], [place], [address] , [place] [facility] & [place] 2 16:18:39 Hyperlipi demia 39776574 Active Ameya House MD [address], [place], [address] , [place] [facility] & [place] 2 16:18:39 Spinal enthesopa thy 30479724 Active Ameya House MD [address] [facility], [place], [address] , [place] [facility] & [place] 2 16:18:39 Body mass index 30+ - obesity 236042228 Active MD [address] , [place], [address] , [place] [facility] [place] [facility] [place] 2 16:18:39 Gastroeso phageal reflux disease without esophagit is 339232961 Active Ameya House MD [address] , [place], [address] , [place] [facility] [place] [facility] [place] 2 16:18:39 Fibromyal kathy 915033155 Active EBENEZER SANTOS DO [address], [place] [address] , [place] [facility] & [place] 5 21:22:25 Dysphagia 71038532 Completed 03/01/2022 Ameya House MD [address] , [address] [place] - [facility] & [place] 2 16:18:48 Constipat ion 17686349 Active Ameya House MD [address], [address] [place] - [facility] & [place] 2 16:18:39 Problem Notes None recorded. Procedures Surgical History Date Name Laterality Status Provider Name and Address Organization Details Recorded Time 2023 completed Florinda HUBER - LPNT [facility] & [place] 4 09:18:17 2023 Most Recent Mammogram completed Florinda HUBER - LPNT [facility] & [place] 4 09:23:00 2022 Date of Last Pap Smear completed Florinda HUBER - LPNT [facility] & [place] 4 09:18:17 2021 Date of Last Colonoscopy completed Rachel Vargas [place] - LPNT [facility] & [place] 3 12:28:09 2021 esophagogastroduodenoscopy completed Osmar HUBER - LPNT [facility] & [place] 3 09:57:04 2021 Colonoscopy completed Tanya HUBER - LPNT [facility] & [place] 3 09:56:53 2004 Total Hysterectomy completed Tanya HUBER - LPNT - [place] & [place] 3 09:53:55 2004 [employer]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 Ghislaine HUBER - LPNT - [place] & [place] 2 15:16:23 1993 Cholecystectomy completed Tanya HUBER - LPNT - [place] & [place] 3 09:54:30 1993 Abdominal Surgery completed Ghislaine HUBER - LPNT - [place] & [place] 2 15:16:23 Dilation and curettage completed José HUBER - LPNT - [place] & [place] 3 09:54:25 Imaging Results Imaging Date Name Status LastModified by Organization Details LastModified Time 08/13/2023 XR, chest, 2 view completed [place] [address], [place], [address], 08/22/2023 14:40:29 08/12/2023 electrocardiogram completed [address], [place], [address], 08/22/2023 14:39:42 08/12/2023 US, echocardiogram, transthoracic, complete, w/ color flow completed [facility] [address], [place], [address], 08/21/2023 18:19:22 08/15/2023 US, echocardiogram, transthoracic, complete, w/ color flow completed [facility] [address], [place], [address], 08/21/2023 18:19:23 09/16/2023 US, doppler echocardiogram completed [address], [place], [address], 09/26/2023 11:02:59 12/22/2023 MAMMO, screening, digital, bilateral completed [email or web address] [place] [address] (Radiology) [address] , [place], [address], 01/17/2024 10:43:31 02/06/2024 stress echocardiogram completed [email or web address] [facility] [address], [place], [address], 02/08/2024 15:27:47 Procedure Notes None recorded. Medical Equipment None Reported. Allergies No known drug allergies Medications Name Sig Start Date Stop Date Status Note LastModified by Organization Details LastModified Time quetiapin e 25 mg tablet TAKE 1 TABLET BY MOUTH AT BEDTIME NIGHTLY active Not Available Not Available No t Available celecoxib 200 mg capsule Take 1 capsule by mouth once daily 2024 active Not Available Not Available Not Avai lable amoxicill in 500 mg capsule TAKE 1 CAPSULE BY MOUTH THREE TIMES DAILY UNTIL GONE 07/24 completed Not Available Not Available Not Available atorvasta tin 40 mg tablet TAKE 1 TABLET BY MOUTH ONCE DAILY active Not Available Not Available No t Available gabapenti n 600 mg tablet TAKE 1 TABLET BY MOUTH EVERY 8 HOURS active Not Available Not Available No t Available atorvasta tin 20 mg tablet TAKE 1 TABLET BY MOUTH ONCE DAILY 01/11 completed Not Available Not Available Not Available nicotine 14 mg/24 hr daily transderm al patch APPLY 1 PATCH TRANSDER ADOLFO EVERY DAY active Not Available Not Available No t Available triazolam 0.25 mg tablet TAKE 1 TABLET BY MOUTH AT BEDTIME, THEN TAKE 1 TABLET 1 HOUR PRIOR TO DENTAL APPOINTM ENT, THEN BRING THE 3RD TABLET TO THE APPOINTM ENT WITH YOU DO NOT DRIVE 01/11 completed Not Available Not Available Not Available trazodone 50 mg tablet TAKE 2 TABLETS BY MOUTH AT BEDTIME NEEDED FOR SLEEP active Not Available Not Available No t Available ibuprofen 800 mg tablet TAKE 1 TABLET BY MOUTH THREE TIMES DAILY NEEDED active Not Available Not Available No t Available metoprolo l succinate ER 50 mg tablet,ex tended release 24 hr TAKE 1 TABLET BY MOUTH ONCE DAILY active Not Available Not Available No t Available ondansetr on HCl 4 mg tablet TAKE 1 TABLET BY MOUTH EVERY 6 HOURS NEEDED FOR NAUSEA AND VOMITING active Not Available Not Available No t Available sulfameth oxazole 800 mg-trimet hoprim 160 mg tablet Take 1 tablet every 12 hours by oral route. 09/13 completed Not Available Not Available Not Available peg-elect rolyte solution 420 gram oral solution TAKE BY MOUTH THREE TIMES DAILY FOR 2 DAYS. TAKE PER INSTRUCT IONS PROVIDED TO YOU BY DR KELLER. 02/28 completed Not Available Not Available Not Available aspirin 81 mg tablet,de layed release TAKE 1 TABLET BY MOUTH ONCE DAILY active Not Available Not Available No t Available triamtere ne 37.5 mg-hydroc hlorothia zide 25 mg capsule 02/28 completed Not Available Not Available Not Available amitripty line 25 mg tablet TAKE 1 TABLET BY MOUTH AT BEDTIME NIGHTLY active Not Available Not Available No t Available methocarb ines 750 mg tablet TAKE 2 TABLETS BY MOUTH AT BEDTIME active Not Available Not Available No t Available estradiol 1 mg tablet 02/28 completed Not Available Not Available Not Available hydrocodo ne 7.5 mg-acetam inophen 325 mg tablet TAKE 1 TABLET BY MOUTH EVERY 6 HOURS NEEDED FOR PAIN active Left over from oral surgeon Not Available Not Available Not Available pantopraz ole 40 mg tablet,de layed release Take by oral route for 90 days. 2024 active Not Available Not Available Not Avai lable lidocaine 5 % topical patch APPLY 1 PATCH TOPICALL Y ONCE DAILY(MA Y WEAR UP TO 12 HOURS) active Not Available Not Available No t Available nicotine 21 mg/24 hr daily transderm al patch APPLY 1 PATCH TOPICALL Y ONCE DAILY active Not Available Not Available No t Available lidocaine HCl 2 % mucosal solution APPLY 2ML/THIN FILM TO AFFECTED AREA EVERY 4 HOURS NEEDED FOR PAIN active Not Available Not Available No t Available benazepri l 20 mg tablet TAKE 1 TABLET BY MOUTH ONCE DAILY FOR 90 DAYS 02/28 completed Not Available Not Available Not Available metoprolo l succinate ER 25 mg tablet,ex tended release 24 hr TAKE 1 TABLET BY MOUTH ONCE DAILY 08/12 completed Not Available Not Available Not Available methylpre dnisolone 4 mg tablets in a dose pack TAKE DIRECTED 07/24 completed Not Available Not Available Not Available olmesarta n 20 mg tablet TAKE 1 TABLET BY MOUTH ONCE DAILY 04/09 completed Not Available Not Available Not Available olmesarta n 40 mg tablet TAKE 1 TABLET BY MOUTH ONCE DAILY 08/30 completed Not Available Not Available Not Available duloxetin e 30 mg capsule,d elayed release TAKE 1 CAPSULE BY MOUTH ONCE DAILY - TAKE WITH DULOXETI NE 60 MG CAPSULE - TOTAL DAILY DOSAGE IS 90 MG active Not Available Not Available No t Available duloxetin e 60 mg capsule,d elayed release Take 1 capsule by mouth once daily active Not Available Not Available No t Available chlorhexi dine gluconate 0.12 % mouthwash RINSE WITH 15 ML AND SPIT OUT TWICE A DAY FOR TWO MINUTES active Not Available Not Available No t Available aspirin 09/01 completed Not Available Not Available Not Available quetiapin e 50 mg tablet TAKE 1 TABLET BY MOUTH AT BEDTIME NIGHTLY active Not Available Not Available No t Available peg 3350-elec trolytes 236 gram-22.7 4 gram-6.74 gram-5.86 gram solution 3 times a day by oral route. 02/28 completed Not Available Not Available Not Available prasugrel HCl 10 mg tablet TAKE 1 TABLET BY MOUTH ONCE DAILY active Not Available Not Available No t Available Entresto 97 mg-103 mg tablet TAKE 1 TABLET BY MOUTH TWICE DAILY active Not Available Not Available No t Available Entresto 49 mg-51 mg tablet TAKE 1 TABLET BY MOUTH TWICE DAILY 07/24 completed Not Available Not Available Not Available Entresto 24 mg-26 mg tablet TAKE 1 TABLET BY MOUTH TWICE DAILY 01/11 completed Not Available Not Available Not Available Vraylar 1.5 mg capsule TAKE 1 CAPSULE BY MOUTH EVERY 24 HOURS active Not Available Not Available No t Available BinaxNOW COVID-19 Ag Self Test kit Use as Directed on the Package 02/28 completed Not Available Not Available Not Available Vitals Date Recorded Body height Body mass index (BMI) Body weight Body temperature Heart rate Oxygen saturation Oxygen saturation in Arterial blood by Pulse oximetry Systolic blood pressure Diastolic blood pressure Provider Name and Address Organization Details Last Updated DateTime 4 172.72 cm 35.7 kg/m2 694686. 49 g 98.2 [degF] 88 /min 98 % 98 % 139 mm[Hg] 83 mm[Hg] Iraida Negrete [place] - LPNT - [place] & [place] 4 09:19:42 Date Recorded Body height Body mass index (BMI) Body weight Body temperature Oxygen saturation Oxygen saturation in Arterial blood by Pulse oximetry Heart rate Systolic blood pressure Diastolic blood pressure Provider Name and Address Organization Details Last Updated DateTime 4 172.72 cm 36.9 kg/m2 749102. 95 g 97.5 [degF] 97 % 97 % 90 /min 134 mm[Hg] 87 mm[Hg] Mikki Murphy C[place] Olivas LPNT [facility] & [place] 4 14:57:54 Date Recorded Body height Body mass index (BMI) Body weight Body temperature Oxygen saturation Oxygen saturation in Arterial blood by Pulse oximetry Heart rate Systolic blood pressure Diastolic blood pressure Provider Name and Address Organization Details Last Updated DateTime 5 172.72 cm 38.5 kg/m2 950341. 87 g 96.8 [degF] 98 % 98 % 74 /min 150 mm[Hg] 90 mm[Hg] Mikki Murphy CECILE Olivas [facility] & [place] 5 11:10:08 Date Recorded Body height Body mass index (BMI) Body weight Body temperature Oxygen saturation Oxygen saturation in Arterial blood by Pulse oximetry Heart rate Systolic blood pressure Diastolic blood pressure Provider Name and Address Organization Details Last Updated DateTime 5 172.72 cm 38.5 kg/m2 256229. 87 g 97.1 [degF] 98 % 98 % 77 /min 120 mm[Hg] 86 mm[Hg] Mikki Livingstondominik Olivas [facility] & [place] 5 16:23:14 Date Recorded Body height Body mass index (BMI) Body weight Body temperature Oxygen saturation Oxygen saturation in Arterial blood by Pulse oximetry Heart rate Systolic blood pressure Diastolic blood pressure Provider Name and Address Organization Details Last Updated DateTime 5 172.72 cm 37.7 kg/m2 957183. 91 g 97.2 [degF] 99 % 99 % 74 /min 156 mm[Hg] 90 mm[Hg] Kiki Ranjith Olivas NT [facility] & [place] 5 09:47:57 Social History Question Answer Notes LastModified by Organizat ion Details LastModified Time Tobacco Smoking Status Current Every Day Smoker [facility] [place] 03/01/2022 15:16:23 Do You Have An Advance Directive? No Information not available 03/01/2022 Are You Blind Or Do You Have Difficulty Seeing? No Information not available 03/01/2022 Is Blood Transfusion Acceptable In An Emergency? Yes Information not available 04/04/2023 What Is Your Level Of Caffeine Consumption? Moderate Information not available 04/04/2023 In The 14 Days Before Symptom Onset, Have You Had Close Contact With A Laboratory-confir med COVID-19 While That Case Was Ill? No Information not available 04/04/2023 In The 14 Days Before Symptom Onset, Have You Had Close Contact With A Person Who Is Under Investigation For COVID-19 While That Person Was Ill? No Information not available 04/04/2023 Have You Been To An Area Known To Be High Risk For COVID-19? No Information not available 04/04/2023 Are You Deaf Or Do You Have Serious Difficulty Hearing? No Information not available 04/04/2023 What Type Of Diet Are You Following? REGULAR Information not available 04/04/2023 Have You Processed Blood Or Body Fluids From An Ebola Virus Disease Patient Without Appropriate PPE? No Information not available 04/04/2023 Do You Reside In Or Have You Traveled To An Area Where Ebola Virus Transmission Is Active? No Information not available 04/04/2023 Have There Been Any Changes To Your Family Or Social Situation? No Information no t available 04/04/2023 What Is The Fluoride Status Of Your Home? Fluoridated Information not available 04/04/2023 Are There Any Guns Present In Your Home? No Information not available 04/04/2023 Have You Recently Or Are You Planning To Travel To An Area With Zika Virus? No Information not available 04/04/2023 Do You Use Insect Repellent Routinely? No Information not available 04/04/2023 What Was The Date Of Your Most Recent Tobacco Screening? 01/09/2024 Information not available 03/26/2024 What Is Your Current Pack Years? [email or web address] [email or web address] Information not available 03/26/2024 Do You Have Any Pets? Yes 1 Dog Information not available 04/04/2023 Do You Use Your Seat Belt Or Car Seat Routinely? Yes Information not available 04/04/2023 Do You Have Smoke And Carbon Monoxide Detectors In Your Home? No Information not available 04/04/2023 Are You Passively Exposed To Smoke? Yes Information no t available 03/01/2022 How Much Tobacco Do You Smoke? 1 PPD Information not available 03/01/2022 Do You Use Sunscreen Routinely? No Information not available 04/04/2023 How Many Years Have You Smoked Tobacco? 37 [email or web address] Information not available 03/26/2024 Do You Have Difficulty Walking Or Climbing Stairs? No Information not available 04/04/2023 Are You Currently In School? No Information not available 04/04/2023 Sex: Female Functional Status Question Answer Note LastModified by [employer] ion Details LastModified Time Do you use any illicit or recreational drugs? No Information not available 03/01/2022 What is your level of alcohol consumption? Occasional Information not available 03/01/2022 Do you or have you ever used smokeless tobacco? Never used smokeless tobacco Information not available 03/01/2022 Are you currently employed? Yes Information not available 04/04/2023 Do you have transportation difficulties? No Information not available 04/04/2023 Are you able to walk? YESWOREST Information not available 04/04/2023 Do you have difficulty doing errands alone? No Information not available 04/04/2023 Are you able to care for yourself? 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 No Information not available 04/04/2023 What is your exercise level? Occasional [email or web address] Information not available 06/14/2022 Mental Status Question Answer Note LastModified by Organizat ion Details LastModified Time Do you feel stressed (tense, restless, nervous, or anxious, or unable to sleep at night)? [id number] [email or web address] Information not available 03/26/2024 Do you have difficulty concentrating, remembering or making decisions? No Information no t available 04/04/2023 Family History Relationship Description Onset Age of this Age Resolved Age Notes LastModified by Organization Details LastModified Time Mother Gastroesopha geal reflux disease pt. added direct ly (02/28) [email or web address] Not available 02/28/2022 11:45:34 Mother Liver problem pt. added direct ly (02/28) [email or web address] Not available 02/28/2022 11:45:54 Father Malignant neoplastic disease [email or web address] Not available 08/16 14:19:53 Medical History Condition Response Other Y Depression Y Difficulty Swallowing Y Anxiety Disorder Y Arthritis Y Acid Reflux (GERD) Y High Cholesterol Y Psychiatric/Mental Health Condition Y Headaches Y Fibromyalgia Y Kidney Disease Y Ear or Hearing Problems Y Congestive Heart Failure (CHF) Y Back Problems Y Reflux/GERD Y Hypertension Y Gynecological History Statement/Question Response Abnormal Pap N 12/22/2023 Date of Last Colonoscopy 05/04/2021 Sexually Active? N Menses Monthly N Date of Last Pap Smear 01/23/2023 Current Control Method None Most Recent Mammogram 12/22/2023 Obstetrics History GPAL:G 0 P 0 0 2 0 Type Value Spontaneous 2 Past Encounters Encounter ID Performer Location Encounter Start Date Encounter Closed Date Diagnosis/Indication Diagnosis SNOMED-CT Code Diagnosis ICD10 Code Diagnosis Note [id number] Ameya House MD [facility] and [place] [place] [address] [place] [address] 03/01/2022 14:41:34 03/01/2022 16:34:10 Chronic kidney disease stage 1 648879574 N18.1 Stable on current regimen today. Continue the current prescribed regimen with no changes today. Chronic pain syndrome 37 9861152 G89.4 Ekasper reviewed today, is compliant, & accessable in the patient's chart. Oral and written informatio n on risk vs. benefit of the prolonged use of controlled substances reviewed today. Including risk of abuse/depe ndancy/add icition. Pt questions answered. CSA has been signed/rev iewed/upda magnolia., Treatment goals: improvemen t in symptoms: PAIN/ANXIE TY/WITHDRA WAL, improvemen t in daily activity levels of function and quality of life, to limit duration and dosage of controlled substances , UDS current. Constipation 46054905 K5 9.00 Stable on current regimen today. Continue the current prescribed regimen with no changes today. Essential hypertension 19156415 I10 restart arb as BP not well controlled Fibromyalgia 181116710 M 79.7 Stable on current regimen today. Continue the current prescribed regimen with no changes today. Gastroesop hageal reflux disease without esophagitis 412694839 K21.9 Hyperlipidemia 11832061 E78.5 restart statin as chol not well controlled . Migraine 56067832 G43.90 9 Stable on current regimen today. Continue the current prescribed regimen with no changes today. Mild recur rent major depression 28479649 F33.0 [id number] Ameya House MD [facility] and [place] [address] [place] [address] 06/14/2022 10:34:07 06/14/2022 11:43:32 Fibromyalgia 313817019 M79.7 Stable on current regimen today. Continue the current prescribed regimen with no changes today. Chronic ki dney disease stage 1 991808989 N18.1 Stable on current regimen today. Continue the current prescribed regimen with no changes today. Chronic pain syndrome 37 5393559 G89.4 Ekasper reviewed today, is compliant, & accessable in the patient's chart. Oral and written informatio n on risk vs. benefit of the prolonged use of controlled substances reviewed today. Including risk of abuse/depe ndancy/add icition. Pt questions answered. CSA has been signed/rev iewed/upda magnolia., Treatment goals: improvemen t in symptoms: PAIN/ANXIE TY/WITHDRA WAL, improvemen t in daily activity levels of function and quality of life, to limit duration and dosage of controlled substances , UDS current. Constipation 80278033 K5 9.00 Stable on current regimen today. Continue the current prescribed regimen with no changes today. Essential hypertension 29613238 I10 restart arb as BP not well controlled Gastroesop hageal reflux disease without esophagitis 981169834 K21.9 Hyperlipidemia 36165372 E78.5 restart statin as chol not well controlled . Migraine 56003299 G43.90 9 Stable on current regimen today. Continue the current prescribed regimen with no changes today. Mild recur rent major depression 52903065 F33.0 Stable on current regimen today. Continue the current prescribed regimen with no changes today. Skin lesion 30839250 L98 .9 Adult heal th examination 804799721 Z00.01 We have discussed routine anticipato ry guidance based on the patient's age. Routine screening exams have been discussed in ordered appropriat e to the patient's age. I have recommende d routine health measures including a regular exercise regimen, healthy balanced diet, and routine safety measures including but not limited to seat belt use and sunscreen use. Hepatitis C screening 41 0841934 Z11.59 HIV screening 809290523 Z11.4 Carotid bruit 132942054 R09.89 [id number] Ameya House MD [facility] and [place] [address] [place] [address] 09/13/2022 08:39:22 09/13/2022 09:53:15 Long-term drug therapy 106734076 Z79.899 Screening mammography 24 063938 Z12.31 Chronic ki dney disease stage 1 277720786 N18.1 Stable on current regimen today. Continue the current prescribed regimen with no changes today. Fibromyalgia 652797431 M 79.7 Stable on current regimen today. Continue the current prescribed regimen with no changes today. Chronic pain syndrome 37 0820760 G89.4 Ekasper reviewed today, is compliant, & accessable in the patient's chart. Oral and written informatio n on risk vs. benefit of the prolonged use of controlled substances reviewed today. Including risk of abuse/depe ndancy/add icition. Pt questions answered. CSA has been signed/rev iewed/lesley merida., Treatment goals: improvemen t in symptoms: PAIN/ANXIE TY/WITHDRA WAL, improvemen t in daily activity levels of function and quality of life, to limit duration and dosage of controlled substances , UDS current. Constipation 16390513 K5 9.00 Stable on current regimen today. Continue the current prescribed regimen with no changes today. Essential hypertension 97401191 I10 restart arb as BP not well controlled Gastroesop hageal reflux disease without esophagitis 388876440 K21.9 Hyperlipidemia 73223993 E78.5 Pt is counselled on routine dietary and lifestyle changes including low fat and low carb diets. Routine lipid panels yearly. Cardiac risk discussed with patient as well today. No changes to lipid regimen today. Pt will work on lifestyle changes to modify risk factors and lipid levels Migraine 56143045 G43.90 9 Stable on current regimen today. Continue the current prescribed regimen with no changes today. Mild recur rent major depression 24785157 F33.0 Stable on current regimen today. Continue the current prescribed regimen with no changes today. Carotid bruit 686258314 R09.89 Dizziness 662425871 R42 M54.12 M54.2 Proceed with MRI of cervical spine given symptoms. Near syncope 949486653 R 55 [id number] Ameya House MD [facility] and [place] [address] [place] [address] 04/04/2023 11:25:23 04/04/2023 12:40:38 Fibromyalgia 138348341 M79.7 Stable on current regimen today. Continue the current prescribed regimen with no changes today. Mild recur rent major depression 49415930 F33.0 Stable on current regimen today. Continue the current prescribed regimen with no changes today. Essential hypertension 87406329 I10 Titrate BP meds; not to goal today Chronic ki dney disease stage 1 368419576 N18.1 Stable on current regimen today. Continue the current prescribed regimen with no changes today. Chronic pain syndrome 37 5639714 G89.4 Ekasper reviewed today, is compliant, & accessable in the patient's chart. Oral and written informatio n on risk vs. benefit of the prolonged use of controlled substances reviewed today. Including risk of abuse/depe ndancy/add icition. Pt questions answered. CSA has been signed/rev iewed/lesley merida., Treatment goals: improvemen t in symptoms: PAIN/ANXIE TY/WITHDRA WAL, improvemen t in daily activity levels of function and quality of life, to limit duration and dosage of controlled substances , UDS current. Gastroesop hageal reflux disease without esophagitis 569265085 K21.9 Hyperlipidemia 42889795 E78.5 Pt is counselled on routine dietary and lifestyle changes including low fat and low carb diets. Routine lipid panels yearly. Cardiac risk discussed with patient as well today. No changes to lipid regimen today. Pt will work on lifestyle changes to modify risk factors and lipid levels [id number] [facility] [place] [address] [place] [place] [address] 01/12/2024 14:33:23 01/12/2024 15:47:10 Long-term drug therapy 348769251 Z79.899 Hyperlipidemia 90313631 E78.5 Pt is counselled on routine dietary and lifestyle changes including low fat and low carb diets. Routine lipid panels yearly. Cardiac risk discussed with patient as well today. No changes to lipid regimen today. Pt will work on lifestyle changes to modify risk factors and lipid levels atorvastat in to 40 mg. Patient now status post non-STEMI and known coronary artery disease. Last lipids with our office showed an LDL of 87. Goal of LDL at least less than 70 if not less than 55. A total of thirty minutes was spent in regard to this patient's visit reviewing labs and/or imaging, reviewing the patients records, conducting a physical examinatio n, preparing the treatment plan, and discussing the treatment plan with its risk and benefits with the patient today. All questions have been answered. Fibromyalgia 049570242 M 79.7 Symptoms more severe and progressiv e recently. Patient remains off work at this time and will likely not be able to return to work at the end of the 6 weeks off work from her non-STEMI. I have advised her today to remain off work. We will extend the time off work for another 8 weeks and reassess at that time. Mild recur rent major depression [id number] F33.0 Stable on current regimen today. Continue the current prescribed regimen with no changes today. Essential hypertension 03508785 I10 Hypertensi on is well controlled currently; Pt is tolerating the current medical regimen without any difficulty . No changes needed today. I have asked the patient to keep regular office visits. If needed the patient can return for a nurse visits for follow up to have routine regular BP checks with our office. Also a home log is encouraged . Chronic ki dney disease stage 1 [id number] N18.1 Stable on current regimen today. Continue the current prescribed regimen with no changes today. Chronic pain syndrome 37 5252506 G89.4 Ekasper reviewed today, is compliant, & accessable in the patient's chart. Oral and written informatio n on risk vs. benefit of the prolonged use of controlled substances reviewed today. Including risk of abuse/depe ndancy/add icition. Pt questions answered. CSA has been signed/rev iewed/upda magnolia., Treatment goals: improvemen t in symptoms: PAIN/ANXIE TY/WITHDRA WAL, improvemen t in daily activity levels of function and quality of life, to limit duration and dosage of controlled substances , UDS current. Gastroesop hageal reflux disease without esophagitis [id number] K21.9 Symptoms are stable and well controlled on the current GERD regimen. There are no signs or symptoms of warning/re d flag concerns. Pt denies: dysphagia, odynophagi a, or blood in stool. If sxs start to worsen or change the pt will RTC. Nicotine dependence 5629 4008 F17.200 Hyperglycemia 67672294 R 73.9 [id number] Ameya House MD [facility] and [place] [address] [place] [address] 09/02/2023 09:09:13 09/02/2023 10:07:11 Hyperlipidemia 14013313 E78.5 Pt is counselled on routine dietary and lifestyle changes including low fat and low carb diets. Routine lipid panels yearly. Cardiac risk discussed with patient as well today. No changes to lipid regimen today. Pt will work on lifestyle changes to modify risk factors and lipid levels Increase atorvastat in to 40 mg. Patient now status post non-STEMI and known coronary artery disease. Last lipids with our office showed an LDL of 87. Goal of LDL at least less than 70 if not less than 55. Fibromyalgia [id number] M 79.7 Symptoms more severe and progressiv e recently. Patient remains off work at this time and will likely not be able to return to work at the end of the 6 weeks off work from her non-STEMI. Mild recur rent major depression [id number] F33.0 Stable on current regimen today. Continue the current prescribed regimen with no changes today. Essential hypertension 44935354 I10 Hypertensi on is well controlled currently; Pt is tolerating the current medical regimen without any difficulty . No changes needed today. I have asked the patient to keep regular office visits. If needed the patient can return for a nurse visits for follow up to have routine regular BP checks with our office. Also a home log is encouraged . Chronic ki dney disease stage 1 [id number] N18.1 Stable on current regimen today. Continue the current prescribed regimen with no changes today. Chronic pain syndrome 37 8373082 G89.4 Ekasper reviewed today, is compliant, & accessable in the patient's chart. Oral and written informatio n on risk vs. benefit of the prolonged use of controlled substances reviewed today. Including risk of abuse/depe ndancy/add icition. Pt questions answered. CSA has been signed/rev iewed/lesley merida., Treatment goals: improvemen t in symptoms: PAIN/ANXIE TY/WITHDRA WAL, improvemen t in daily activity levels of function and quality of life, to limit duration and dosage of controlled substances , UDS current. Gastroesop hageal reflux disease without esophagitis [id number] K21.9 Symptoms are stable and well controlled on the current GERD regimen. There are no signs or symptoms of warning/re d flag concerns. Pt denies: dysphagia, odynophagi a, or blood in stool. If sxs start to worsen or change the pt will RTC. [id number] [facility] [place] [address] [place] [address] 07/24/2024 10:38:10 07/24/2024 12:02:42 Long-term current use of drug therapy [id number] Z79.899 Hyperlipidemia 32720005 E78.5 Pt is counselled on routine dietary and lifestyle changes including low fat and low carb diets. Routine lipid panels yearly. Cardiac risk discussed with patient as well today. No changes to lipid regimen today. Pt will work on lifestyle changes to modify risk factors and lipid levels Fibromyalgia 500084687 M 79.7 Stable on current regimen today. Continue the current prescribed regimen with no changes today. Ok to return to work at this time without restrictio ns. Mild recur rent major depression 77470632 F33.0 Stable on current regimen today. Continue the current prescribed regimen with no changes today. Essential hypertension 75591821 I10 Hypertensi on is not well controlled currently; Pt is tolerating the current medical regimen without any difficulty . increase metoprolol toda. I have asked the patient to keep regular office visits. If needed the patient can return for a nurse visits for follow up to have routine regular BP checks with our office. Also a home log is encouraged . Chronic ki dney disease stage 1 [id number] N18.1 Stable on current regimen today. Continue the current prescribed regimen with no changes today. Chronic pain syndrome 37 1365294 G89.4 Ekasper reviewed today, is compliant, & accessable in the patient's chart. Oral and written informatio n on risk vs. benefit of the prolonged use of controlled substances reviewed today. Including risk of abuse/depe ndancy/add icition. Pt questions answered. CSA has been signed/rev iewed/lesley merida., Treatment goals: improvemen t in symptoms: PAIN/ANXIE TY/WITHDRA WAL, improvemen t in daily activity levels of function and quality of life, to limit duration and dosage of controlled substances , UDS current. Gastroesop hageal reflux disease without esophagitis 261687140 K21.9 Symptoms are stable and well controlled on the current GERD regimen. There are no signs or symptoms of warning/re d flag concerns. Pt denies: dysphagia, odynophagi a, or blood in stool. If sxs start to worsen or change the pt will RTC. Hyperglycemia 19703978 R 73.9 A1c stable [id number] MD [facility] and [place] [address] [place] [address] 08/09/2024 15:53:05 08/09/2024 17:13:11 Chronic low back pain 769630013 G89.29 M54.42 M54.16 Neck pain 98370974 M54.2 M54.12 [id number] EBENEZER SANTOS DO [facility]- [address] [place] [address] 08/16/2024 14:19:34 08/16/2024 15:45:32 Lumbar spondylosis 116785087 M47.816 Myofascial pain 56801414 9 M79.18 Chronic pain syndrome 37 9408106 G89.4 Cervical spondylosis 387 482553 M47.812 Fibromyalgia 828898799 M 79.7 Peripheral neuralgia 254 77672 M79.2 Health Concerns Section Related Observation LastModified by Organization Detai ls LastModified Time None Recorded Concern Status LastModified by Organization Details LastModified Time None Recorded Advance Directives Directive N: Payers Insurance Date Sequence Insurance Name Policy Number Policy Hardin Covered Member ID Hardin Member ID Guarantor Name 08/13/2024 1 [place] [id number] Vanessa Valencia Livingood [id number] Vanessa Livingood 08/13/2024 1 [place]UE ACCESS (PPO) [id number] Vanessa A Livingood [id number] Vanessa Livingood 09/10/2024 1 [place] (PPO) [id number] Vanessa Valencia Livingood [id number] Vanessa [email or web address] Notes Date Note Type Note Provider Name and Address Organization Details Recorded Time 4 text/html Here for FU: doing ok. 1.) Fibromyalgia: Here for routine FU. Remains on cymbalta and neurontin. She reports progressive pain, hurts all the time, cryies all the time. Doesn't feel like doing anything at home or work. She is just not herself. No changes that precip the pain increase. Has no good days anymore. Reports daily/frequent diffuse pain. FMLA at work for severe times. She is working but misses alot. Tolerating all the medicines. She is now using Rx naproxen more frequently too. We did stress gxt in and this was normal. Continues to use FMLA prn.--Has tried diet changes--Has been meditating--has been doing increased stretches, etc--Has been trying to quit smoking. RecentSince our Last visit, stress at work has increased. Her overall symptoms have worsened. She has extreme fatigue, extreme mental fog, and diffuse pain. Completing her day at work is quite difficult. She struggles to complete a full day's work without extreme pain and fatigue. She has difficulty ambulating. Even at home her ADLs are becoming worse because of pain and fatigue.2.) HTN: Blood pressure good today. Has been on prior medications but most recent medication regimen has been updated since her hospitalization. Hospitalization was for non-STEMI3.) Anxiety/Depression: Symptoms overall stable and her medication regimen is up-to-date on the chart. Patient had been following with Dr. Kenyon's office but has a high co-pay to see them. Medications have been stable and symptoms have been stable, and we have become primary prescriber. She is currently not seeing a counselor.4.) HMS:--colonoscopy: Has family hx of colonoscopy and needs to have screening colon. Colon now done 04/2021-->due04/2026.--Magalys eddy mammogram 09/2022, due 09/2023--Needs to call DR. Robles to schedule in next 1 year. --> Scheduled at 1 o'clock5.) GERD: was placed on PPI, omeprazole, due to heartburn, dysphagia, and nausea. All sxs resolved, initially, but heart burn as returned with some dysphagia as well. We changed the omeprazole to protonix. The heart burn has helped with protonix, but the dysphagia has continued. EGD unremarkable. Also with some tickle and cough in throat as well. NO hematemsis, or unexpained wt loss. Wt is down, but trying.--EGD and shows gastritis only. 6.) HL: Restart statin, not sure why she stopped the meds Agreeable to restart--Has been back on this, chasity well; FLP 05/2022 and looks good.--Now needs HD statin for CARD 7.) Pulsating areas in right side of neck; soft tissue like structure/carotid artery--Carotid US normal. 8.) CAD/CHF with EF 45%--Hosp stay with NSTEMI 07/2023--Present to [place] [facility] with CP and found to have NSTEMI with elevated Trop Levels--Transfered to [facility]--Now on Entresto, Asp, Effient, Atorvastatin, but only 20mg of atorvastatin--Improving--H as Referral pending to Cardiac Rehab--FU with Cards 4., ECHO 09/16/23, Cards FU 09/26/2023 Echo prior to discharge showed mild global hypokinesis, moderate hypokinesis of the septum. Left ventricular ejection fraction of 45%. Echo prior to heart catheterization showed an EF 20%. Ameya House MD [address] [facility], [place], [address], [place] [facility] [place] 09/02/2023 10:09:27 4 text/html Here for FU: doing ok. 1.) Fibromyalgia: Here for routine FU. Remains on cymbalta and neurontin. She reports progressive pain, hurts all the time, cryies all the time. Doesn't feel like doing anything at home or work. She is just not herself. No changes that precip the pain increase. Has no good days anymore. Reports daily/frequent diffuse pain. FMLA at work for severe times. She is working but misses alot. Tolerating all the medicines. She is now using Rx naproxen more frequently too. We did stress gxt in and this was normal. Continues to use FMLA prn.--Has tried diet changes--Has been meditating--has been doing increased stretches, etc--Has been trying to quit smoking. RecentSince our Last visit, stress at work had increased. Her overall symptoms have worsened. She has extreme fatigue, extreme mental fog, and diffuse pain. Completing her day at work is quite difficult. She struggles to complete a full day's work without extreme pain and fatigue. She has difficulty ambulating. Even at home her ADLs are becoming worse because of pain and fatigue. 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 Has from a cardiology standpoint continue to follow up with the tram driver and feels that he may be ready to release her back to work in the beginning of January, but she is not physically able to return at this time. She still struggles with ADLs. She has diffuse chronic pain, extreme fatigue, mental fogginess. 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 Has been on prior medications but most recent medication regimen has been updated since her hospitalization. Hospitalization was for non-STEMI3.) Anxiety/Depression: Symptoms overall stable and her medication regimen is up-to-date on the chart. Patient had been following with Dr. Kenyon's office but has a high co-pay to see them. Medications have been stable and symptoms have been stable, and we have become primary prescriber. She is currently not seeing a counselor.4.) HMS:--colonoscopy: Has family hx of colonoscopy and needs to have screening colon. Colon now done 04/2021-->due04/2026.--Magalys eddy mammogram 09/2022, due 09/2023--Needs to call DR. Robles to schedule in next 1 year. --> Scheduled at 1 o'clock5.) GERD: was placed on PPI, omeprazole, due to heartburn, dysphagia, and nausea. All sxs resolved, initially, but heart burn as returned with some dysphagia as well. We changed the omeprazole to protonix. The heart burn has helped with protonix, but the dysphagia has continued. EGD unremarkable. Also with some tickle and cough in throat as well. NO hematemsis, or unexpained wt loss. Wt is down, but trying.--EGD and shows gastritis only. 6.) HL: Restart statin, not sure why she stopped the meds Agreeable to restart--Has been back on this, chasity well; FLP 05/2022 and looks good.--Now needs HD statin for CARD 7.) Pulsating areas in right side of neck; soft tissue like structure/carotid artery--Carotid US normal. 8.) CAD/CHF with EF 45%--Hosp stay with NSTEMI 07/2023--Present to [place] [facility] with CP and found to have NSTEMI with elevated Trop Levels--Transfered to [facility]--Now on Entresto, Asp, Effient, Atorvastatin, but only 20mg of atorvastatin--Improving--H as Referral pending to Cardiac Rehab--FU with Cards 4., ECHO 09/16/23, Cards FU 09/26/2023 Echo prior to discharge showed mild global hypokinesis, moderate hypokinesis of the septum. Left ventricular ejection fraction of 45%. Echo prior to heart catheterization showed an EF 20%. Cardiology note January 10oronary artery disease without angina? Stableessential hypertension--well controlledTobacco use? continuesHyperlipidemia? stableHeart failure with improved ejection fraction, chronic diastolic heart failure? stablePlan:Coronary artery disease present and likely stableNon STEMI status post MANISH to LAD 4DAPT with aspirin and EffientHeart failure with improved ejection fraction with EF recovered now at 55% on September 16, 2023Hypertension with elevation blood pressure on the day of visit? metoprolol ER 25 mg once daily startingHyperlipidemia LDL goal is 55 with an LDL of 79 on July 2023--on high-dose statin Ameya House MD [address] [facility], [place], [address], [facility] - [place] 01/23/2024 15:41:41 5 text/html Vanessa Espinoza is a 53-year-old female who presents for a medication follow-up. She reports no specific concerns today and states that her medications have remained unchanged since her last visit in February. She has a follow-up appointment with her tram driver in August. She mentions experiencing a new symptom of a tingling sensation in her lower back and legs, which occurs occasionally when she stands up or rolls over in bed. This sensation is accompanied by her legs feeling like jelly, which resolves after a few minutes of sitting down. She denies any new injuries and reports that her back pain has been terrible overall. She also mentions experiencing some overactive bladder symptoms, such as urgency when she needs to urinate. Her blood pressure has been stable at home, although it was slightly elevated during her last tram driver visit in February and is elevated today. 1.) Fibromyalgia: Here for routine FU. Remains on cymbalta and neurontin. She reports progressive pain, hurts all the time, cryies all the time. Doesn't feel like doing anything at home or work. She is just not herself. No changes that precip the pain increase. Has no good days anymore. Reports daily/frequent diffuse pain. FMLA at work for severe times. She is working but misses alot. Tolerating all the medicines. She is now using Rx naproxen more frequently too. We did stress gxt in and this was normal. Continues to use FMLA prn.--Has tried diet changes--Has been meditating--has been doing increased stretches, etc--Has been trying to quit smoking. Low back pain--Pain is stable at this time.--Feels like she is ready to return to work at this time.2.) HTN: Blood pressure not good today. Has been on prior medications but most recent medication regimen has been updated since her hospitalization. Hospitalization was for non-STEMI--Taking meds, but BP has been up and slowly increasing over recent mos.3.) Anxiety/Depression: Symptoms overall stable and her medication regimen is up-to-date on the chart. Patient had been following with Dr. Kenyon's office but has a high co-pay to see them. Medications have been stable and symptoms have been stable, and we have become primary prescriber. She is currently not seeing a counselor.4.) HMS:--colonoscopy: Has family hx of colonoscopy and needs to have screening colon. Colon now done 04/2021-->due04/2026.--Magalys eddy mammogram 09/2022, 11/2023--Follows with DR. Robles --> .) GERD: was placed on PPI, omeprazole, due to heartburn, dysphagia, and nausea. All sxs resolved, initially, but heart burn as returned with some dysphagia as well. We changed the omeprazole to protonix. The heart burn has helped with protonix, but the dysphagia has continued. EGD unremarkable. Also with some tickle and cough in throat as well. NO hematemsis, or unexpained wt loss. Wt is down, but trying.--EGD and shows gastritis only. 6.) HL: Restart statin, not sure why she stopped the meds Agreeable to restart--Has been back on this, chasity well; FLP 12/2023 and looks good.--Now needs HD statin for CARD 7.) Pulsating areas in right side of neck; soft tissue like structure/carotid artery--Carotid US normal. 8.) CAD/CHF with EF 45%--Hosp stay with NSTEMI 07/2023--Present to [place] [facility] with CP and found to have NSTEMI with elevated Trop Levels--Transfered to [facility]--Now on Entresto, Asp, Effient, Atorvastatin, but only 20mg of atorvastatin--Improving--H as Referral pending to Cardiac Rehab--FU with Cards ., ECHO 09/16/23, Cards FU 09/26/2023, and now ECHO 01/2024 with improved EF to 55% now. No changes to meds. Has FU now with Cards 08/2024 Echo prior to discharge showed mild global hypokinesis, moderate hypokinesis of the septum. Left ventricular ejection fraction of 45%. Echo prior to heart catheterization showed an EF 20%. 02/2024 Cards noteCAD is stableNon-STEMI s/p MANISH .APT with aspirin and EffientHFimpEF is present EF recovered now to 55%HTN acceptable BP Cardiology note Janoronary artery disease without angina? Stableessential hypertension--well controlledTobacco use? continuesHyperlipidemia? stableHeart failure with improved ejection fraction, chronic diastolic heart failure? stablePlan:Coronary artery disease present and likely stableNon STEMI status post MANISH to LAD 4DAPT with aspirin and EffientHeart failure with improved ejection fraction with EF recovered now at 55% on September 16, 2023Hypertension with elevation blood pressure on the day of visit? metoprolol ER 25 mg once daily startingHyperlipidemia LDL goal is 55 with an LDL of 79 on July 2023--on high-dose statin Ameya House MD [address] [facility], [place], [address], [facility] - [place] 08/12/2024 21:43:31 5 text/html Here b/c she is feeling so terrible and with severe pain. Vanessa Espinoza is a 53-year-old female who presents for an acute visit for back pain. She reports severe pain that started after returning to work last Tuesday. She worked two hours and experienced significant pain, which persisted over the next few days. She worked Tuesday, Tuesday, and Tuesday but had to call in on Tuesday due to the severity of the pain. She describes the pain as being all around her back, radiating to her ribs, and rates it as an 11 on a scale of 1 to 10. The pain is accompanied by numbness and tingling in her left leg when she is on her feet. She also experiences numbness and tingling in her arms when lying down, with the right arm going numb when lying on her left side and the left arm going numb when lying on her right side. She has been taking ibuprofen 800 mg, which has not provided relief. She also took leftover hydrocodone from a previous dental procedure, which only takes the edge off for a couple of hours. She has been taking hydrocodone during her first break at work and ibuprofen 800 mg at lunch. 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 She walks approximately 10,000 steps in eight hours and finds it difficult to bend down to pick items from the bottom shelf due to the pain. Vanessa has a history of fibromyalgia and has been taking celecoxib, duloxetine, and gabapentin for her condition. She has previously been denied disability twice and has a court date set for September. She also reports experiencing chest pain similar to her previous heart attack when she is in severe pain. She has an appointment with her tram driver next month.1.) Fibromyalgia: Here for routine FU. Remains on cymbalta and neurontin. She reports progressive pain, hurts all the time, cryies all the time. Doesn't feel like doing anything at home or work. She is just not herself. No changes that precip the pain increase. Has no good days anymore. Reports daily/frequent diffuse pain. FMLA at work for severe times. She is working but misses alot. Tolerating all the medicines. She is now using Rx naproxen more frequently too. We did stress gxt in and this was normal. Continues to use FMLA prn.--Has tried diet changes--Has been meditating--has been doing increased stretches, etc--Has been trying to quit smoking. Low back pain--Pain is progressive--Now with bilateral LE weakness and numbness--The symptoms occur with position changes, last minutes, then resolve--no B/B incont.--Does have some overactive bladder symptoms from time to time--Increased sxs have been occuring over the past 1-2 ms and seem to be worsening. Neck Pain:--Having worsened neck pain and bilateral arm numbness and pain as well Ameya House MD [address] [facility], [place], [address], [facility] [place] 08/12/2024 20:22:48 text/html Patient presented with chronic pain in multiple regions. She went to the ED on 08/13/24 for severe back pain. She took leftover hydrocodone from a previous dental procedure, which helped reduce the pain for a couple of hours. She has been taking hydrocodone and ibuprofen 800 mg at lunch. 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 Vanessa has been taking celecoxib, duloxetine, and gabapentin for her condition. She was previously denied disability twice and has a court date set for September. Referral: Ameya House [facility]- CAD s/p stent 07/2023, fibromyalgia {{DATE 08/16/2024}}: Initial complaint: chronic neck, upper and lower back pain localized to the upper, mid, and low back Onset: {{1 - 2 months 3 - 4 months 5 months >6 months* 1 year 1 - 2 years 2 - 3 years >3 years >5 years > 8 years >10 years}} Pain Location: neck, upper, low back, ribs Course: {{progressing over several days constant over several days progressing over several months to a year* constant over several months to a year progressing over several years constant over several years}} Pain Quality: sharp, dull, achy, deep, tingling, stiffness Pain Intensity: {{1 2 3 4 5 6 7 8 9* 10}} / 10 Aggravating Factors: prolong standing, prolong sitting, leaning backwards, lying flat, riding in cars for long periods, twisting, walking Alleviating Factors: hydrocodone Associated Symptoms: none-Patient currently denies saddle anesthesia, bowel/bladder incontinence, worsening/progressive weakness.-Functional Goals of Treatment: Reduce the pain level by 50% or more and restore function/mobility/quality of life.Current Medication:Opioids: {{None* Tramadol Hydrocodo ne 5 Hydrocodone 7.5 Hydrocodone 10 Oxycodone 5 Oxycodone 7.5 Oxycodone 10 dilaudid morphine 15 morphine 30 methadone suboxone fent anly patch Codeine}}NSAIDS: {{None ibuprofen Meloxicam naproxen diclofenac celec oxib* Ketorolac mefenamic acid etoricoxib indomethac in}}Muscle Relaxers:{{None methocarba mol* carisoprodol chlorzox azone cyclobenzaprine orph enadrine metaxalone dantro kirt baclofen}}Others: {{lidocaine patch tylenol Gabapentin* Lyrica Cymbalta}}, cymbaltaPrevious Non-Interventional Treatment:- {{heat/ice, NSAIDS, TENS unit, lidocaine patch, chiropractor, PT, HEP*}}Interventions/Consul ts:-Neurosurgery: {{none* cervical thoracic lumbar }}-Orthopedics: {{none* right left}}-Inter ventional pain: {{none* NITA LESI shoulder hip knee piriformis SIJ T PIs SCS IT pump PNS cervical mbbs thoracic mbbs lumbar Mbbs cervica RFA thoracic RFA lumbar RFA}}-Podiatry: {{none* foot surgery}}Smoking: {{yes* no quit recently quite >10 years ago}}Diabetes: {{no* DM 1 DM2}}A1C: {{<5.7 5.7 - 6 6.1 - 7 7.1 - 7.9 >8 unknown*}}Anticoagu lation: {{None* Warfarin Apixaban (eliquis) rivaroxaban(Xare lto) fondaparinux}}Antipla telets: {{None ASA Clopidogrel (plavix) ticagrelor (Brilinta) cilostazol dipy ridamole prasugrel (Effient)*}}, ASAWork Status: {{employed* unemployed ret ired disability}} EBENEZER SANTOS, DO [address] [facility], [place], [address], [facility] & [place] 08/20/2024 21:32:17 OBGyn Episode No OBEpisode recorded.
--- OUTSIDE RECORDS SUMMARY | 2024-09-12 06:54 | XMS_ITS | Continuity of Care Document ---
Author Organization [place] [facility] [place] [facility] [place], [facility] Address [address] [place] [address] Care Team Providers Care Manager Ent Name Role Phone AMEYA HOUSE Primary Care Provider Assessment Encounter Date Assessment Date Assessment LastModified by Organization Details LastModified Time 08/09/2024 08/09/2024 ASSESSMENT: - Severe back pain - Fibromyalgia - Numbness and tingling in the left leg - Numbness and tingling in the arms - Chest pain -- around lateral chest wall from back PLAN: - Referral to a spray painter to explore options for managing chronic pain. - Order MRI of the cervical spine and lumbar spine to evaluate for any new issues causing numbness and tingling in the arms and legs. - Provide FMLA paperwork to protect the patient from being docked for missed days at work. - Discuss with the patient the importance of going to the ER if she experiences chest pain similar to her previous heart attack. - Consider physical therapy to help manage pain and improve function. - Follow up with the mannequin coloring artist next month. [email or web address] Not available 08/12/2024 20:22:24 Plan of Treatment Reminders Order Date Submit [...] Not available Not available Not available Lab None recorded. Referral pain managemen t referral 2024 025 DOS RIOS Issa Means, [address] , [address], [place], [address], 09/10/2024 04:13:43 Procedures None recorded. Surgeries None recorded. Imaging MRI, lumbar spine, w/o contrast 2024 025 [facility] (Centralized Scheduling), [address] , [place], [address], 09/09/2024 04:02:56 MRI, cervical spine, w/o contrast 2024 025 [facility] (Centralized Scheduling), [address] , [place], [address], 09/09/2024 04:02:56 Medication Orders None recorded. Patient TargetsNo targets recorded. Patient InstructionsNo instructions recorded. Reason for Referral Pain Management Referral for Chronic low back pain Referring Physician: Ameya House, Internal Medicine, Encounter Date: 08/09/2024 Problems Name Problem SNOMED Code Status Onset Date Resolution Date Notes Provider Name and Address Organization Details Recorded Time Coronary arteriosc lerosis 32962458 Active 2023 Ameya House MD [address], [place], [address] , [place] [facility] [place] [facility] [place] 4 08:31:50 Myofascia l pain 006558225 Active 2024 ERIN SANTOS DO [address], [place], [address] , [place] - [facility] [place] [facility] [place] 5 15:40:33 Lumbar spondylos is 734339488 Active 2024 ERIN SANTOS DO [address], [place], [address] , [place] [facility] [place] [facility] [place] 5 15:40:34 Subjectiv e tinnitus of right ear 87305782140 62172 Active Kiki collier, [place] - [facility] [place] [facility] [place] 5 09:48:12 Dysphagia 33657205 Active Kiki Kasper null, [place] - [facility] [place] [facility] [place] 5 09:48:12 Tinnitus of right ear 85857103646 08 Active Kiki Kasper null, [place] [facility] [place] [facility] [place] 5 09:48:12 Cervical spondylos is 052292299 Active 2024 ERIN SANTOS DO [address] , [facility] [address] , [facility] - [facility] & [place] 5 21:22:23 Periphera l neuralgia 63289084 Active 2024 ERIN SANTOS DO [address], [place] [address] , [facility] - [facility] & [place] 5 21:23:36 Mild recurrent major depressio n 64999230 Active Ameya House MD [address] [facility] [address] , [facility] - [facility] & [place] 2 16:18:39 Degenerat ion of thoracic intervert ebral disc 43067488 Active Ameya House MD [address] [facility] [address] , [facility] - [facility] & [place] 2 16:18:39 Essential hypertens ion 68028155 Active MD Ty Pimentel [place] [address] , [place] - [facility] & [place] 2 16:18:39 Subjectiv e tinnitus of right ear 48108044265 39378 Completed 03/01/2022 MD Ty Pimentel [facility] [address] , [place] - [facility] & [place] 2 16:18:48 Chronic pain syndrome 109942375 Active DO Ty WEATHERS [facility] [address] , [place] - [facility] & [place] 5 21:22:23 Tinnitus of right ear 49052833748 08 Completed 03/01/2022 Ameya House MD [address], [place], [address] , [place] - [facility] & [place] 2 16:18:48 Chronic kidney disease stage 1 387429524 Active MD Ty Pimentel , [place], [address] , [place] - [facility] & [place] 2 16:18:39 Chronic pain 00033652 Active MD Ty Pimentel , [place], [address] , [place] - [facility] & [place] 2 16:18:39 Migraine 10819132 MD Ty Alba , [place], [address] , [place] - [facility] & [place] 2 16:18:39 Thoracic spondylos is 994088413 Active MD Ty Pimentel , [place], [address] , [place] - [facility] & [place] 2 16:18:39 Hyperlipi demia 07354023 Active MD [address], [place], [address] , [place] - [facility] & [place] 2 16:18:39 Spinal enthesopa thy 95636141 MD Ty Al[address] , [place], [address] , [place] - [facility] & [place] 2 16:18:39 Body mass index 30+ - obesity 648138848 MD Ty [address] , [place], [address] , [place] - [facility] & [place] 2 16:18:39 Gastroeso phageal reflux disease without esophagit is 755338319 MD [address] , [place], [address] , [place] [facility] [place] [facility] [place] 2 16:18:39 Fibromyal kathy 024097794 Active ERIN SANTOS DO [address] , [place], [address] , [place] - [facility] [place] [facility] [place] 5 21:22:25 Dysphagia 19766506 Completed 03/01/2022 Ameya House MD [address], [place], [address] , [place] [facility] [place] [facility] [place] 2 16:18:48 Constipat ion 78340558 Active Ameya House MD [address] , [place], [address] , [place] [facility] [place] [facility] [place] 2 16:18:39 Problem Notes None recorded. Procedures Surgical History Date Name Laterality Status Provider Name and Address Organization Details Recorded Time 2023 completed Florinda Luke [place] - [facility] [place] [facility] [place] 4 09:18:17 2023 Most Recent Mammogram completed Florinda HUBER - [facility] [place] [facility] [place] 4 09:23:00 2022 Date of Last Pap Smear completed Florinda HUBER - [facility] [place] [facility] [place] 4 09:18:17 2021 Date of Last Colonoscopy completed Rachel Vargas [place] - [facility] [place] [facility] [place] 3 12:28:09 2021 esophagogastroduodenoscopy completed Osmar Souza [place] - [facility] [place] [facility] [place] 3 09:57:04 2021 Colonoscopy completed Tanya HUBER - [facility] [place] [facility] [place] 3 09:56:53 2004 Total Hysterectomy completed Tanya HUBER - [facility] [place] [facility] [place] 3 09:53:55 2004 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 Procedure Notes None recorded. Medical Equipment None [...] Updated DateTime 5 172.72 cm 38.5 kg/m2 137354. 87 g 97.1 [degF] 98 % 98 % 77 /min 120 mm[Hg] 86 mm[Hg] Mikki HUBER [facility] & [place] 5 16:23:14 Social History Question Answer Notes LastModified by Organizat ion Details LastModified Time Tobacco Smoking Status Current Every Day Smoker Ghislaine collier, [place] [facility] & [place] 03/01/2022 15:16:23 Do You Have An Advance [...] 03/26/2024 What Is Your Current Pack Years? 30kallie means [email or web address] Information not available 03/26/2024 Do You Have [...] Many Years Have You Smoked Tobacco? 37 [email or web address] Information not available 03/26/2024 Do You Have Difficulty Walking Or Climbing Stairs? No Information not available 04/04/2023 Are You Currently In School? No Information not available 04/04/2023 Sex: Female Functional Status Question Answer Note LastModified by Organizat ion Details LastModified Time Do you use [...] 04/04/2023 What is your exercise level? Occasional [email or web address] Information not available 06/14/2022 Mental Status Question Answer Note LastModified by Organizat ion Details LastModified Time Do you feel stressed (tense, restless, nervous, or anxious, or unable to sleep at night)? [id number] [email or web address] Information not available 03/26/2024 Do you have [...] SNOMED-CT Code Diagnosis ICD10 Code Diagnosis Note [id number] MD Jannet Pimentel and JOSE EDUARDO carcam[address] [place], [place] [address] 07/24/2024 10:38:10 07/24/2024 12:02:42 Long-term current use of drug therapy 948687390 Z79.899 Hyperlipidemia 32305569 E78.5 Pt is counselled on routine dietary and lifestyle changes including low fat and low carb diets. Routine lipid panels yearly. Cardiac risk discussed with patient as well today. No changes to lipid regimen today. Pt will work on lifestyle changes to modify risk factors and lipid levels Fibromyalgia 885206445 M 79.7 Stable on current regimen today. Continue the current prescribed regimen with no changes today. Ok to return to work at this time without restrictio ns. Mild recur rent major depression 23498126 F33.0 Stable on current regimen today. Continue the current prescribed regimen with no changes today. Essential hypertension 75464139 I10 Hypertensi on is not well controlled [...] . Chronic ki dney disease stage 1 485303894 N18.1 Stable on current regimen today. Continue the current prescribed regimen with no changes today. Chronic pain syndrome 37 8716981 G89.4 Ekasper reviewed today, is compliant, & [...] current. Gastroesop hageal reflux disease without esophagitis 915594022 K21.9 Symptoms are stable and well controlled on the current GERD regimen. There are no signs or symptoms of warning/re d flag concerns. Pt denies: dysphagia, odynophagi a, or blood in stool. If sxs start to worsen or change the pt will RTC. Hyperglycemia 12526252 R 73.9 A1c stable [id number] [facility] [address] [place] [address] 08/09/2024 15:53:05 08/09/2024 17:13:11 Chronic low back pain 401015581 G89.29 M54.42 M54.16 Neck pain 36076286 M54.2 M54.12 Health Concerns Section Related Observation LastModified by Organization Chidiyu meryl LastModified Time None Recorded Concern Status LastModified by Organization Details LastModified Time None Recorded Payers Encounter Date Sequence Insurance Name Policy Number Policy Hardin Covered Member ID Hardin Member ID Guarantor Name 08/09/2024 1 [place] [employer] [place] [id number] Vanessa Espinoza [id number] Vanessa Espinoza Notes Date Note Type Note Provider Name and Address Organization Details Recorded Time 08/09/2024 text/html Here b/c she is feeling so [...] pain. She has an appointment with her mannequin coloring artist next month.1.) Fibromyalgia: Here for routine FU. [...] and pain as well Ameya House MD [id number] [facility], [place], [address], [facility] - [facility] [place] [facility] [place] 08/12/2024 20:22:48 OBGyn Episode No OBEpisode recorded.
--- OUTSIDE RECORDS SUMMARY | 2024-09-12 06:55 | XMS_ITS | Continuity of Care Document ---
Author Organization [place] [facility] [place] [facility] [place], [facility] and [facility] Address [address] [place] [address] Care Team Providers Care Body And Fender Mechanic Apprentice Name Role Phone AMEYA HOUSE Primary Care Provider [phone] Assessment Encounter Date Assessment Date Assessment LastModified [...] to work on 07/30 without any restrictions. Not available 08/12/2024 21:41:23 Plan of Treatment Reminders Order Date Submit [...] 14 drugs (detectim ed), urine 2024 025 LATA[facility], [address], [address], [place], [address], 07/28/2024 07:03:57 Referral None recorded. Procedures None recorded. Surgeries None recorded. Imaging None recorded. Medication Orders metoprolo l succinate ER 50 mg tablet,ex tended release 24 hr 2024 025 [email or web address] [facility], [address] [place], [address], 08/20/2024 09:48:07 Patient TargetsNo targets recorded. Patient InstructionsNo instructions recorded. Reason for Referral None Reported. Problems Name Problem SNOMED Code Status Onset Date Resolution Date Notes Provider Name and Address Organization Details Recorded Time Coronary arteriosc lerosis 34408386 Active 2023 Ameya House MD [address], [place], [address] , [place] [facility] [place] 4 08:31:50 Myofascia l pain 041158634 Active 2024 ERIN SANTOS DO [address], [place], [address] , [place] [facility] [place] 5 15:40:33 Lumbar spondylos is 244857019 Active 2024 ERIN SANTOS DO [address] , [place], [address] , [place] [facility] [place] 5 15:40:34 Subjectiv e tinnitus of right ear 08702038541 55788 Active Kiki Brown null, [place] [facility] [place] 5 09:48:12 Dysphagia 80103026 Active Kiki Kasper null, [place] [facility] [place] 5 09:48:12 Tinnitus of right ear 96805792537 08 Active Kikibabatunde Kasper null, [place] [facility] 5 09:48:12 Cervical spondylos is 935298727 Active 2024 ERIN SANTOS DO [address], [place], [address] , [place] [facility] [place] 5 21:22:23 Periphera l neuralgia 69623244 Active 2024 ERIN SANTOS DO [address], [place], [address] , [place] [facility] & [place] 5 21:23:36 Mild recurrent major depressio n 18637431 Active Ameya House MD [address] , [place], [address] , [place] [facility] & [place] 2 16:18:39 Degenerat ion of thoracic intervert ebral disc 25850112 Active MD Ty Pimentel , [place], [address] , [place] [facility] [facility] & [place] 2 16:18:39 Essential hypertens ion 07645323 Active MD Ty Pimentel , [place], [address] , [place] [facility] [facility] & [place] 2 16:18:39 Subjectiv e tinnitus of right ear 19686619028 29053 Completed 03/01[facility]20[facility] [place], [address] , [place] [facility] [facility] & [place] 2 16:18:48 Chronic pain syndrome 884731887 Active ERIN SANTOS DO [address], [place], [address] , [place] [facility] & [place] 5 21:22:23 Tinnitus of right ear 40942346389 08 Completed 03/01/2022 Ameya House MD [address], [place], [address] , [place] [facility] & [place] 2 16:18:48 Chronic kidney disease stage 1 025679319 Active MD Ty Pimentel , [place], [address] , [place] [facility] & [place] 2 16:18:39 Chronic pain 57785432 Active MD Ty Pimentel , [place] [address] , [place] [facility] [facility] & [place] 2 16:18:39 Migraine 29814444 Active Ameya House MD [address], [place] [address] , [place] [facility] [facility] & [place] 2 16:18:39 Thoracic spondylos is 115116644 Active Ameya House MD [address] , [place] [address] , [place] [facility] [facility] & [place] 2 16:18:39 Hyperlipi demia 87043113 Active Ameya House MD [address] [facility], [place] [address] , [place] [facility] & [place] 2 16:18:39 Spinal enthesopa thy 38212605 Active Ameya House MD [address] , [address] [place] [facility] & [place] 2 16:18:39 Body mass index 30+ - obesity 067167273 Active Ameya House MD [address] , [address] [place] [facility] & [place] 2 16:18:39 Gastroeso phageal reflux disease without esophagit is 934463129 Active Ameya House MD [address] , [place], [address] , [place] [facility] [facility] & [place] 2 16:18:39 Fibromyal kathy 446183774 Active ERIN SANTOS DO [address] , [place], [place], [address] [place] [address] , [place] [facility] [facility] & [place] 5 21:22:25 Dysphagia 42199471 Completed 03/01/2022 Ameya House MD [address] , [facility] [address] , [place] [facility] & [place] 2 16:18:48 Constipat ion 55523513 Active Ameya House MD [address] [facility], [place], [address] , [place] [facility] [place] 2 16:18:39 Problem Notes None recorded. Procedures Surgical History Date Name Laterality Status Provider Name and Address Organization Details Recorded Time 2023 completed Florinda Luke [place] [facility] [place] 4 09:18:17 2023 Most Recent Mammogram completed Florinda [place] [facility] [place] 4 09:23:00 2022 Date of Last Pap Smear completed Florinda Luke [place] [facility] [place] 4 09:18:17 2021 Date of Last Colonoscopy completed Jazminelenny héctor Vargas [place] [facility] [place] 3 12:28:09 2021 esophagogastroduodenoscopy completed Osmar patti Lib[place] [facility] [place] 3 09:57:04 2021 Colonoscopy completed Tanya [place] [facility] 3 09:56:53 2004 Total Hysterectomy completed Tanya Scaleson [place] [facility] [place] 3 09:53:55 2004 Plastic Surgery Technician Surgery completed Ghislaine Fleamador CEC[place] - [facility] - [place] [facility] [place] 2 15:16:23 1993 Cholecystectomy completed Tanya Libby [place] [facility] [place] 3 09:54:30 1993 Abdominal Surgery completed Ghislaine Flejsoety [place] [facility] [place] 2 15:16:23 Dilation and curettage completed José Souza [place] [facility] 3 09:54:25 Imaging Results None recorded. Procedure [...] Updated DateTime 5 172.72 cm 38.5 kg/m2 061421. 87 g 96.8 [degF] 98 % 98 % 74 /min 150 mm[Hg] 90 mm[Hg] Mikki HUBER [facility] & [place] 5 11:10:08 Date Recorded Body height Body mass index (BMI) Body weight Body temperature Oxygen saturation Oxygen saturation in Arterial blood by Pulse oximetry Heart rate Systolic blood pressure Diastolic blood pressure Provider Name and Address Organization Details Last Updated DateTime 5 172.72 cm 38.5 kg/m2 760630. 87 g 97.1 [degF] 98 % 98 % 77 /min 120 mm[Hg] 86 mm[Hg] Mikki HUBER [facility] & [place] 5 16:23:14 Social History Question Answer Notes LastModified by Organizat ion Details LastModified Time Tobacco Smoking Status Current Every Day Smoker Ghislaine collier, CECILE Olivas TERRY [facility] & [place] 03/01/2022 15:16:23 Do You Have An Advance [...] Of Your Most Recent Tobacco Screening? 01/09/2024 [email or web address] Information not available 03/26/2024 What Is Your Current Pack Years? [email or web address] Information not available 03/26/2024 Do You Have [...] Many Years Have You Smoked Tobacco? 37 [email or web address] Information not available 03/26/2024 Do You Have [...] 04/04/2023 What is your exercise level? Occasional [email or web address] Information not available 06/14/2022 Mental Status Question Answer Note LastModified by Organizat ion Details LastModified Time Do you feel stressed (tense, restless, nervous, or anxious, or unable to sleep at night)? [id number] [email or web address] Information not available 03/26/2024 Do you have [...] SNOMED-CT Code Diagnosis ICD10 Code Diagnosis Note [id number] Ameya House MD [facility] [place] [address] [address] 07/24/2024 10:38:10 07/24/2024 12:02:42 Long-term current use of drug therapy 196969963 Z79.899 Hyperlipidemia 16004914 E78.5 Pt is counselled on routine dietary and lifestyle changes including low fat and low carb diets. Routine lipid panels yearly. Cardiac risk discussed with patient as well today. No changes to lipid regimen today. Pt will work on lifestyle changes to modify risk factors and lipid levels Fibromyalgia 840090066 M 79.7 Stable on current regimen today. Continue the current prescribed regimen with no changes today. Ok to return to work at this time without restrictio ns. Mild recur rent major depression 41609218 F33.0 Stable on current regimen today. Continue the current prescribed regimen with no changes today. Essential hypertension 92545742 I10 Hypertensi on is not well controlled [...] . Chronic ki dney disease stage 1 [id number] N18.1 Stable on current regimen today. Continue the current prescribed regimen with no changes today. Chronic pain syndrome 37 8012831 G89.4 Ekasper reviewed today, is compliant, & [...] current. Gastroesop hageal reflux disease without esophagitis 131357535 K21.9 Symptoms are stable and well controlled on the current GERD regimen. There are no signs or symptoms of warning/re d flag concerns. Pt denies: dysphagia, odynophagi a, or blood in stool. If sxs start to worsen or change the pt will RTC. Hyperglycemia 24086298 R 73.9 A1c stable Health Concerns Section Related Observation LastModified by Organization Detai ls LastModified Time None Recorded Concern Status LastModified by Organization Details LastModified Time None Recorded Payers Encounter Date Sequence Insurance Name Policy Number Policy Hardin Covered Member ID Hardin Member ID Guarantor Name 07/24/2024 1 [place] [id number] Vanessa Espinoza [id number] Vanessa Espinoza Notes Date Note Type Note Provider Name and Address Organization Details Recorded Time 5 text/html Vanessa Espinoza is a 53-year-old female who presents for a medication follow-up. She reports no specific concerns today and states that her medications have remained unchanged since her last visit in February. She has a follow-up appointment with her vp software engineering in August. She mentions experiencing a new [...] it was slightly elevated during her last vp software engineering visit in February and is elevated today. [...] EF 45%--Hosp stay with NSTEMI 07/2023--Present to [place] ED with CP and found to have NSTEMI with elevated Trop Levels--Transfered to [facility]--Now on Entresto, Asp, Effient, Atorvastatin, but only [...] 02/2024 Cards noteCAD is stableNon-STEMI s/p MANISH 4.APT with aspirin and EffientHFimpEF is present EF recovered now to 55%HTN acceptable BP Cardiology note Oct oronary artery disease without angina? Stableessential hypertension--well controlledTobacco use? continuesHyperlipidemia? stableHeart failure with improved ejection fraction, chronic diastolic heart failure? stablePlan:Coronary artery disease present and likely stableNon STEMI status post MANISH to LAD 08/12/2023APT with aspirin and EffientHeart failure with improved ejection fraction with EF recovered now at 55% on September 16, 2023Hypertension with elevation blood pressure on the day of visit? metoprolol ER 25 mg once daily startingHyperlipidemia LDL goal is 55 with an LDL of 79 on July 2023--on high-dose statin Ameya House MD [address] [facility], [place], [address], [facility] - [place] - [place] 08/12/2024 21:43:31 5 text/html Here b/c she [...] pain. She has an appointment with her vp software engineering next month.1.) Fibromyalgia: Here for routine FU. [...] and pain as well Ameya House MD [address] [facility], [place], [address], [facility] - [place] - [place] 08/12/2024 20:22:48 OBGyn Episode No OBEpisode recorded.
--- OUTSIDE RECORDS SUMMARY | 2024-09-12 06:55 | XMS_ITS | Continuity of Care Document ---
Author Organization [facility] [place] New Address [address] [place] [address] Care Team Providers Care Receptionist Secretary Name Role Phone BRANDI AMEYA Primary Care Provider [phone] Assessment Encounter Date Assessment Date Assessment LastModified by Organization Details LastModified Time 08/16/2024 08/16/2024 Images reviewed today thoracic MRI: [...] Wt loss, OMT, mindfulness meditation - Consider [employer] as a resource 3. #Myofascial Pain Syndrome,Chronic [...] Modified Time Details Appointments PROC 2024 09:15A M EBENEZER SANTOS, DO Not available Not available Not available OV EST 2024 03:00P M EBENEZER SANTOS, DO Not available Not available Not available PROC 2024 01:45P Pilar SANTOS, DO Not available Not available Not available OV EST 2024 09:40A M Ameya House MD Not available Not available Not available Lab None recorded. Referral None recorded. Procedures nerve block, intercost al (PROC) - 69153, 23875 right T9-t11 intercost al nerve block 2024 025 [email or web address] Ebenezer Santos DO, [address] [facility] [address], [place], [address], 08/21/2024 08:14:31 Surgeries None recorded. Imaging None recorded. Medication Orders methocarb ines 750 mg tablet 2024 025 [facility] [place], [address], 08/16/2024 15:43:04 lidocaine 5 % topical patch 2024 025 [facility] [address] [place], [address], 08/16/2024 15:43:03 Patient TargetsNo targets recorded. Patient Instructions Encounter Date Encounter Id Patient Instructions Last Modified By Organization Details Last Modified Time 08/16/2024 [id number] I have discussed in great detail our potential treatment options which would include a rehabilitative approach to care. This program would include medication management, Physical Therapy, consideration for interventional procedures as appropriate, and lifestyle modification (diet, weight loss, exercise, smoking/tobacco cessation, holistic approach including meditation and yoga). The patient understands and agrees prior to proceeding with this plan. _ __ __ __ __ __ __ __ __ __ __ __ __ __ __ __ __ __ __ __ __ __ __ __ __ __ __ __ _ RECORDS REVIEW: As per clinic policy, we will have the patient sign a release to obtain previous imaging and clinical notes. _ __ __ __ __ __ __ __ __ __ __ __ __ __ __ __ __ __ __ __ __ __ __ __ __ __ __ __ _ PSYCH: Pain affecting Neuro-psych behavior was discussed. Discussed about pain psychological counseling as a part of the multimodal approach to pain treatment. _ __ __ __ __ __ __ __ __ __ __ __ __ __ __ __ __ __ __ __ __ __ __ __ __ __ __ __ _ REHABILITATION: Discussed with the patient the importance of diet, daily physical activity and PT. Discussed with the patient the need to be scheduled for physical therapy since physical therapy will prolong the benefits of the procedure and interventions. _ __ __ __ __ __ __ __ __ __ __ __ __ __ __ __ __ __ __ __ __ __ __ __ __ __ __ __ _ GUS: [id number] I have reviewed patient's GUS report prior to prescribing Schedule II, III, and IV medications that require review by law. Not available 08/20/2024 21:22:03 Reason for Referral None Reported. Problems Name Problem SNOMED Code Status Onset Date Resolution Date Notes Provider Name and Address Organization Details Recorded Time Coronary arteriosc lerosis 15288902 Active 2023 Ameya House MD [address] [place], [address] , [place] [place] 08:31:50 Myofascia l pain 838959961 Active 2024 EBENEZER SANTOS DO [address] [place], [address] , [place] [facility] [place] 15:40:33 Lumbar spondylos is 284603522 Active 2024 EBENEZER SANTOS DO [address] [place], [address] , [place] [facility] [place] 15:40:34 Subjectiv e tinnitus of right ear 97518567376 37233 Active Kiki Kasper null, [place] [place] 09:48:12 Dysphagia 23196304 Active Kiki Kasper null, [place] [place] 09:48:12 Tinnitus of right ear 81916080986 08 Active Kiki Kasper null[place] [place] 09:48:12 Cervical spondylos is 300058840 Active 2024 EBENEZER SANTOS DO [address] [place], [address] , [place] [facility] [place] 21:22:23 Periphera l neuralgia 40723447 Active 2024 EBENEZER SANTOS DO [address] [place], [address] , [place] [facility] [place] 21:23:36 Mild recurrent major depressio n 90881599 Active Ameya House MD [address] [place], [address] , [place] [facility] [place] 2 16:18:39 Degenerat ion of thoracic intervert ebral disc 11959322 [place], [address] , [place] [place] 2 16:18:39 Essential hypertens ion 95010329 Active Ameya House MD [address] , [place], [address] , [facility] - [facility] & [place] 2 16:18:39 Subjectiv e tinnitus of right ear 61615587632 51609 Completed 03/01/2022 Ameya House MD [address] [facility], [place], [address] , [facility] - [facility] & [place] 2 16:18:48 Chronic pain syndrome 567443843 Active EBENEZER SANTOS DO [address] [facility], [place], [address] , [facility] - [facility] & [place] 5 21:22:23 Tinnitus of right ear 68232079657 08 Completed 03/01/2022 Ameya House MD [address] [facility], [place], [address] , [facility] - [facility] & [place] 2 16:18:48 Chronic kidney disease stage 1 087078346 Active Ameya House MD [address], [place], [address] , [facility] - [facility] & [place] 2 16:18:39 Chronic pain 22875655 Active Ameya House MD [address] , [place], [address] , [place] - [facility] & [place] 2 16:18:39 Migraine 89220932 Active Ameya House MD [address] , [place], [address] , [place] [facility] & [place] 2 16:18:39 Thoracic spondylos is 924526626 Active Ameya House MD [address] , [place], [address] , [place] [facility] & [place] 2 16:18:39 Hyperlipi demia 46698024 Active Ameya House MD [address] [facility], [place], [place], [address] [place] [address] , [place] [facility] & [place] 2 16:18:39 Spinal enthesopa thy 16706588 Active Ameya House MD [address] [facility], [place] [address] , [place] [facility] & [place] 2 16:18:39 Body mass index 30+ - obesity 695966296 Active Ameya House MD [address] [facility], [place] [address] , [place] - [facility] & [place] 2 16:18:39 Gastroeso phageal reflux disease without esophagit is 385844804 [place] [address] [place] [address] - [facility] & [place] 2 16:18:39 Fibromyal kathy 838292450 Active EBENEZER SANTOS DO [address] [place] - [facility] & [place] 5 21:22:25 Dysphagia 29590756 Completed 03/01/2022 [place] [address] [place] [address] - [facility] & [place] 2 16:18:48 Constipat [place] 21342413 [place] [address] [place] [address] , [place] - [facility] & [place] 2 16:18:39 Problem Notes None recorded. Procedures Surgical History Date Name Laterality Status Provider Name and Address Organization Details Recorded Time 2023 completed Florinda BRISCOE [facility] & [place] 4 09:18:17 2023 Most Recent Mammogram completed Florinda Olivas 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 & [place] 2 15:16:23 1993 Cholecystectomy completed Tanya HUBER - [place] [place] 09:54:30 1993 Abdominal Surgery completed Ghislaine HUBER - [facility] & [place] 2 15:16:23 Dilation and curettage completed José HUBER - [facility] & [place] 3 09:54:25 Imaging Results None recorded. Procedure [...] Updated DateTime 5 172.72 cm 37.7 kg/m2 787097. 91 g 97.2 [degF] 99 % 99 % 74 /min 156 mm[Hg] 90 mm[Hg] Kiki Kasper [facility] & [place] 5 09:47:57 Social History Question Answer Notes LastModified by Organizat ion Details LastModified Time Tobacco Smoking Status Current Every Day Smoker Ghislaine Pinzon [facility] & [place] 03/01/2022 15:16:23 Do You Have An Advance [...] 03/26/2024 What Is Your Current Pack Years? [email or web address] Information not available 03/26/2024 Do You Have [...] Many Years Have You Smoked Tobacco? 37 [email or web address] Information not available 03/26/2024 Do You Have [...] 04/04/2023 What is your exercise level? Occasional [email or web address] Information not available 06/14/2022 Mental Status Question Answer Note LastModified by Organizat ion Details LastModified Time Do you feel stressed (tense, restless, nervous, or anxious, or unable to sleep at night)? [id number] Information not available 03/26/2024 Do you have [...] SNOMED-CT Code Diagnosis ICD10 Code Diagnosis Note [id number] Ameya House MD [facility] [address] [place], [place] [address] 07/24/2024 10:38:10 07/24/2024 12:02:42 Long-term current use of drug therapy 506645472 Z79.899 Hyperlipidemia 89205582 E78.5 Pt is counselled on routine dietary and lifestyle changes including low fat and low carb diets. Routine lipid panels yearly. Cardiac risk discussed with patient as well today. No changes to lipid regimen today. Pt will work on lifestyle changes to modify risk factors and lipid levels Fibromyalgia 611323664 M 79.7 Stable on current regimen today. Continue the current prescribed regimen with no changes today. Ok to return to work at this time without restrictio ns. Mild recur rent major depression 74780971 F33.0 Stable on current regimen today. Continue the current prescribed regimen with no changes today. Essential hypertension 12560484 I10 Hypertensi on is not well controlled [...] . Chronic ki dney disease stage 1 560018135 N18.1 Stable on current regimen today. Continue the current prescribed regimen with no changes today. Chronic pain syndrome 37 1354613 G89.4 Ekasper reviewed today, is compliant, & [...] current. Gastroesop hageal reflux disease without esophagitis 460916215 K21.9 Symptoms are stable and well controlled on the current GERD regimen. There are no signs or symptoms of warning/re d flag concerns. Pt denies: dysphagia, odynophagi a, or blood in stool. If sxs start to worsen or change the pt will RTC. Hyperglycemia 07378871 R 73.9 A1c stable [id number] MD Jannet Pimentel [facility] and IM Dem[address] [place] [address] 08/09/2024 15:53:05 08/09/2024 17:13:11 Chronic low back pain 893544824 G89.29 M54.42 M54.16 Neck pain 44034229 M54.2 M54.12 [id number] EBENEZER SANTOS DO [facility] [place] [address] 08/16/2024 14:19:34 08/16/2024 15:45:32 Lumbar spondylosis 328470134 M47.816 Myofascial pain 54661968 9 M79.18 Chronic pain syndrome 37 0771588 G89.4 Cervical spondylosis 387 481336 M47.812 Fibromyalgia 205923966 M 79.7 Peripheral neuralgia 254 47221 M79.2 Health Concerns Section Related Observation LastModified by Organization Detai ls LastModified Time None Recorded Concern Status LastModified by Organization Details LastModified Time None Recorded Payers Encounter Date Sequence Insurance Name Policy Number Policy Hardin Covered Member ID Hardin Member ID Guarantor Name 08/16/2024 1 [place] [id number] Vanessa Espinoza [id number] Vanessa Espinoza Notes Date Note Type Note Provider Name and Address Organization Details Recorded Time 08/16/2024 text/html Patient presente d with chronic pain in multiple regions. She [...] date set for September. Referral: Ameya House [facility]- CAD s/p stent 07/2023, fibromyalgia {{DATE 08/16/2024}}: [...] level by 50% or more and restore function/mobility/ml lity of life.Current Medication:Opioids: {{None* Tramadol Hydr ocodone 5 Hydrocodone 7.5 Hydrocodone 10 Oxycodone 5 Oxycodone 7.5 Oxycodone 10 dilaudid morphine 15 morphine 30 methadone suboxone fentanly patch Codeine}}NSAIDS : {{None ibuprofen Rob xicam naproxen diclof enac celecoxib* Ketor olac mefenamic acid etoricoxib indom ethacin}}Muscle Relaxers:{{None metho carbamol* carisoprodo l chlorzoxazone cyclo benzaprine orphenadri ne metaxalone dantrol tere baclofen}}Others: {{lidocaine patch tylenol Gabapen tin* Lyrica Cymbalta} }, cymbaltaPrevious Non-Interventional Treatment:- {{heat/ice, NSAIDS, TENS unit, lidocaine patch, chiropractor, PT, HEP*}}Interventions/C onsults:-Neurosurgery : {{none* cervical thor acic lumbar }}-Orthop edics: {{none* right left}}- Interventional pain: {{none* NITA LESI suresh ulder hip knee pirifo rmis SIJ TPIs SCS IT pump PNS cervical mbbs thoracic mbbs lumbar Mbbs cervica RFA thoracic RFA lumbar RFA}}-Podiatry: {{none* foot surgery}}Smoking: {{yes* no quit recently quite >10 years ago}}Diabetes: {{no* DM 1 DM2}}A1C: {{<5.7 5.7 - 6 6.1 - 7 7.1 - 7.9 >8 unknown*}}Anti coagulation: {{None* Warfarin Apix aban (eliquis) rivaroxaban (Xarelto) fondaparinu x}}Antiplatelets: {{None ASA Clopidogre l (plavix) ticagrelor (Brilinta) cilostazol dipyridamole prasugr el (Effient)*}}, ASAWork Status: {{employed* unemploye d retired disability} } EBENEZER SANTOS, [address] , [place], [address], [facility] 08/20/2024 21:32:17 OBGyn Episode No OBEpisode recorded.
--- NOTE | 2024-09-12 07:00 | NM_ITS ---
APPROVED REPORT Exam: Nuclear Stress Test Indication: Chest pain, SOB, CAD, Hx of [place], HTN, High cholesterol, Tobacco use Patient Location: Outpatient Stress Tech: Sidra Perez [place] Tech:Starla Ricks, ARRT, RT (R)(N) Ht: 5 ft 8 in Wt: 240 lbs Bra Size: 44DD HR: 61 bpm BP: 127/76 mmHg BSA: 2.21 m2 TID: 1.45 BMI: 36.4 History: Chest pain, SOB, CAD, Hx of [place], HTN, High cholesterol, Tobacco use Procedure: Patient received 0.4 mg of intravenous Lexiscan, resting heart rate 61 bpm, resting blood pressure 127/76 mmHg, with Lexiscan maximum heart rate achieved was 80 bpm which is % of the maximum predicted heart rate and blood pressure was 148/79 mmHg. With Lexiscan, patient denied any complaint of chest pain. Cardiac Stress and Resting SPECT Images: Cardiac Stress and Resting SPECT images were obtained using technetium 99m Myoview 29.3 mCi stress and 10.34 mCi at rest. Resting and stress imaging in supine and prone positions demonstrate a medium, mild, predominantly fixed perfusion defect in the anterior LV wall. There is a small region of reversibility noted anteriorly. There is increase in transient ischemic dilatation ratio (TID 1.45), suggestive of possible multivessel disease or balanced ischemia. Gated imaging demonstrates mild reduction in global LV systolic function. LVEF is calculated at 47%. Conclusion: Medium, mild, predominantly fixed perfusion defect in the anterior LV wall. There is a small region of reversibility noted anteriorly. Findings are suggestive of partial reversible ischemia. There is increase in transient ischemic dilatation ratio (TID 1.45), suggestive of possible multivessel disease or balanced ischemia. Gated imaging demonstrates mild reduction in global LV systolic function. LVEF is calculated at 47%. Electronically signed by : Una Orozco MD 09/12/2024 13:15:55
[2024-09-12] MEDS: REGADENOSON 0.4MG/5ML SYRINGE 0.4 MG IV (09:06)
[2024-09-12] MEDS: SODIUM CHLORIDE 0.9% 10ML SYR (RAD ONLY) 10 ML IV ×2 (09:06→09:07)
[2024-09-12] MEDS: ISOTOPE MYOVIEW (PER STUDY) 1 DOSE IV (09:07)
== END 2024-09-12 23:59 | disposition home or self-care (01) ==
LOC: RAD 06:52
PROVIDERS: PCP Pediatrics; Visit Provider Physician Assistant
DX: R94.39 Abnormal result of other cardiovascular function study (principal); I21.4 Non-ST elevation (NSTEMI) myocardial infarction; I11.0 Hypertensive heart disease with heart failure; I50.42 Chronic combined systolic (congestive) and diastolic (congestive) heart failure
CPT/HCPCS: 78452; 93017; 93018; A9502; J2785

== ENCOUNTER 2024-09-20 14:41 | Outpatient (CLI) | payer BC, SELFPAY ==
--- OUTSIDE RECORDS SUMMARY | 2024-09-18 01:57 | XMS_ITS | Continuity of Care Document ---
Author Organization [facility] Phone Care Team Providers Care Windows Desktop Engineer Name Role Phone DEJA HOUSE Unavailable DEJA HOUSE Primary Care DEJA HOUSE Admitting DEJA HOUSE Primary Attending ALLERGIES AND ADVERSE REACTIONS ALLERGIES AND ADVERSE REACTIONS Code System Allergy Substance Adverse Reaction Date Reaction (Severity) Comment Status Reported By Updated By No Known Allergies [id number] on September 26, 2015 4:55:00 PM [facility] FAMILY HISTORY RELATION: Father Status: Cause of : Unknown Age at : 54 SNOMED-CT Diagnosis Age At Onset [id number] Malignant tumor of colon RELATION: Mother Status: LIVING SNOMED-CT Diagnosis Age At Onset [id number] Acid reflux [id number] Hypertensive disorder RESULTS Patient: NII JONES Date of : 1970 LABORATORY RESULTS Information is not available LABORATORY NARRATIVE RESULTS Information is not available RADIOLOGY RESULTS ORDER 100: MRI CERVICAL SPIN E W/O (LOINC: 05378-7) ORDER DATE: September 14, 2024 5:07:00 PM [facility] PERFORMING LAB: [address] [id number] Final Result Date: September 14 9:55:[address] [address] Name: LANI BALES Exam Date: 09/14/2024 : 1970 Age 53 years Gender: F Physician: Deja House Facility: [facility] Facility HSV: Outpatient Exam: MRI CERVICAL SPINE W/O EXAMINATION: MRI CERVICAL SPINE WITHOUT CONTRAST CLINICAL INDICATION: Female, 53 years old. radiculopathy cervical cervicalgia TECHNIQUE: Multiplanar multisequence MR images were obtained of the cervical spine without intravenous contrast. Unless otherwise specified, incidental findings do not require dedicated imaging follow-up. [id number]. COMPARISON: 29 September 2022 FINDINGS: Benign bone marrow signal. Mild multilevel degenerative disc disease. Mild diffuse disc bulging best appreciated at C4-5 and C5-6. This does not appear to be associated with significant canal encroachment. Unremarkable appearing cervical cord. Unremarkable extraspinal soft tissues. IMPRESSION: Multilevel mild degenerative disc disease with mild disc bulging best appreciated at C4-5 and C5-6. Electronically signed by: Paul Alcala MD 09/14/2024 05:55 PM EDT Dictated By: PAUL ALCALA Transcribed By: Transcribed On: 09/14/2024 5:55 PM Electronically signed by: PAUL ALCALA 09/14/2024 Thank you for referring LANI BALES to [facility]. Legally authenticated by CARI COHEN 2024-09-14 17:55:54 ORDER 200: MRI LUMBAR SPINE W/O (LOINC: 30101-8) ORDER DATE: September 14, 2024 5:07:00 PM [facility] PERFORMING LAB: [address] [id number] Final Result Date: September 14 9:45:24 PM [facility] [address] [address] Name: LANI BALES Exam Date: 09/14/2024 : 1970 Age 53 years Gender: F Physician: Deja House Facility: [facility] Facility HSV: Outpatient Exam: MRI LUMBAR SPINE W/O MR LUMBAR SPINE WITHOUT IV CONTRAST, 09/14/2024 3:19 PM CDT EXAMINATION: MRI LUMBAR SPINE WITHOUT CONTRAST CLINICAL INDICATION: Female, 53 years old. radiculopathy lumbar lumbago with sciatica left side TECHNIQUE: Multiplanar multisequence MR images were obtained of the lumbar spine without intravenous contrast. Unless otherwise specified, incidental findings do not require dedicated imaging follow-up. [id number]. COMPARISON: Plain films January 04, 2020. FINDINGS: Multiple T1 dark, T2 bright renal lesions bilaterally, incompletely characterized but favor benign cyst. The prevertebral soft tissues are within normal limits. Moderate edema like signal can be seen adjacent to the facets at L4/L5 and L5/S1. Addition, there is increased edema like signal within the pedicles and facets of L4-L5, likely reactive edema from degenerative change or altered biomechanics. No acute fracture or subluxation. Vertebral body heights are preserved, and facet joints are aligned. Degenerative marrow signal changes at L5/S1. No focal pathologic marrow lesion. Multilevel degenerative disc desiccation. Conus terminates at L1. Normal cord signal without nerve root thickening. No definite spinal canal mass. Degenerative Changes: T12/L1: No significant stenosis. L1/2: Minimal disc bulge. Mild facet hypertrophy. Minimal foraminal narrowing. L2/3: Disc bulge. Facet hypertrophy. Moderate central canal stenosis. Moderate bilateral foraminal stenosis. L3/4: Mild disc bulge. Facet hypertrophy. Mild to moderate central canal stenosis. Moderate bilateral foraminal stenosis. L4/5: Mild disc bulge. Facet hypertrophy. Mild central canal stenosis. Moderate to advanced right greater than left foraminal stenosis. L5/S1: Disc bulge. Facet hypertrophy. Moderate to advanced bilateral foraminal stenosis. IMPRESSION: No acute fracture. Normal cord signal. Degenerative changes as above. . . . S/D/G Electronically signed by: Ebenezer Bolanos MD 09/14/2024 05:45 PM EDT Dictated By: Ebenezer Bolanos Legally authenticated by AGUSTÍN Valencia 2024-09-14 17:45:24 Transcribed By: Transcribed On: 09/14/2024 5:45 PM Electronically signed by: Ebenezer Bolanos 09/14/2024 Thank you for referring LANI BALES to [facility]. Legally authenticated by AGUSTÍN Valencia 2024-09-14 17:45:24 PATHOLOGY NARRATIVE RESULTS Information is not available MICROBIOLOGY RESULTS No Micro Labs/Results Exist for Patient BLOOD ADMIN RESULTS Information is not available MEDICATIONS HOME MEDICATIONS Status RXNORM NDC Medication Dose Route Frequency Dates Comments Reported By Updated By Drug Treatment Unknown DISCHARGE MEDICATIONS Status RXNORM NDC Medication Dose Route Frequency Dates Comments Physician Updated By No Discharge Medication Info rmation Available INPATIENT MEDICATIONS Status RXNORM NDC Medication Dose Route Frequency Rat e Quantity Dates Comments Physician Updated By No Inpatient Medication Info rmation Available SOCIAL HISTORY SOCIAL HISTORY SNOMED-CT Social History Element Description Effective Dates Offered Cessation Comment UpdatedBy [id number] Historical Tobacco smoking status Current Every Day Smoker Smokes 1 ppd for 25 years [id number] on April 29, 2021 1:28:19 PM [facility] SOCIAL HISTORY - Gender Sex: Female SOCIAL HISTORY - Status : status i nformation is not available Intention in Next Year: intention information is not available SOCIAL HISTORY - Sexual Behavior Sexual Orientation Gender Identity SNOMED-CT Description SNO MED -CT Description Activity Level No of Partners Partner Type UpdatedBy Information is not available HEALTH CONCERNS Problems Concern Status Health Concern problem infor mation not available. Smoking Status Status Years Used Consumed packs p er day Health Concern smoking histo ry information not available. Family History Concern Status Health Concern family histor y information not available. ENCOUNTERS ENCOUNTER INFORMATION Reason for Visit MRI Admission September 14, 2024 4:49:[address] [id number] Discharge September 14, 2024 4:49:00 PM [facility] DISC HARGED TO HOME OR SELF CARE ENCOUNTER DIAGNOSES Notes information is not frank ilable. Code System Diagnosis Onset Date Diagnosis information is not available. ABSTRACT DIAGNOSES Code System Diagnosis Updated By M54.12 ICD10 RADICULOPATHY, CERVICAL JAYLYN ON [id number] on September 18, 2024 5:51:18 AM [facility] M54.16 ICD10 RADICULOPATHY, LUMBAR REGION [id number] on September 18, 2024 5:51:18 AM [facility] M54.42 ICD10 LUMBAGO WITH SCIATICA, LEFT SIDE [id number] on September 18, 2024 5:51:18 AM [facility] M50.121 ICD10 CERVICAL DISC DI SORDER AT C4-C5 LEVEL WITH RADICULOPATHY [id number] on September 18, 2024 5:51:18 AM [facility] M50.122 ICD10 CERVICAL DISC DI SORDER AT C5-C6 LEVEL WITH RADICULOPATHY [id number] on September 18, 2024 5:51:18 AM UTC M47.26 ICD10 OTHER SPONDYLOSI S WITH RADICULOPATHY, LUMBAR REGION [id number] on September 18, 2024 5:51:18 AM UTC M47.817 ICD10 SPONDYLOSIS WITH OUT MYELOPATHY OR RADICULOPATHY, LUMBOSACRAL REGION [id number] on September 18, 2024 5:51:18 AM UTC M54.42 ICD10 LUMBAGO WITH SCIATICA, LEFT SIDE [id number] on September 18, 2024 5:51:18 AM UTC M54.2 ICD10 CERVICALGIA [id number] on September 18, 2024 5:51:18 AM [place] G89.29 ICD10 OTHER CHRONIC PAIN [id number] o n September 18, 2024 5:51:18 AM [facility] CARE TEAM Care Windows Desktop Engineer Role DEJA HOUSE Referring DEJA HOUSE Primary Care DEJA HOUSE Admitting DEJA HOUSE Primary Attending CARE TEAM CARE it web development consultant Role on Team Status Start Date End Date Update d By BRANDI SALEEM PCP normal August 28, 2024 1:03:48 PM [place] September 14, 2024 4:49:00 PM UTC [id number] on August 28, 2024 1:03:48 PM [place] BRANDI SALEEM Referring normal August 28, 2024 1:03:48 PM [place] September 14, 2024 4:49:00 PM UTC [id number] on August 28, 2024 1:03:48 PM UT BRANDI SALEEM Attending normal August 28, 2024 1:03:48 PM [place] September 14, 2024 4:49:00 PM UTC [id number] on August 28, 2024 1:03:48 PM UT BRANDI SALEEM Admitting normal August 28, 2024 1:03:48 PM UT September 14, 2024 4:49:00 PM UTC [id number] on August 28, 2024 1:03:48 PM UT
--- OUTSIDE RECORDS SUMMARY | 2024-09-20 14:44 | XMS_ITS | Continuity of Care Document ---
Author Organization [place] - [place], [facility] Address [address] 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 [...] improve function. - Follow up with the regional director next month. [email or web address] Not available 08/12/2024 20:22:24 Plan of Treatment Reminders Order Date Submit Date Provider Last Modified By Organization Details Last Modified Time Details Appointments OV EST 2024 03:00P Pilar SANTOS, DO Not available Not available Not available PROC 2024 01:45P Pilar SANTOS, DO Not available Not available Not available OV EST 2024 09:40A Pilar House MD Not available Not available Not available Lab None recorded. Referral pain managemen t referral 2024 025 [email or web address] Issa Means, [address], [place], [address], 09/13/2024 15:50:55 Procedures None recorded. Surgeries None recorded. Imaging MRI, lumbar spine, w/o contrast 2024 025 [facility] (Centralized Scheduling), [address] [facility], [place], [address], 09/14/2024 17:50:52 MRI, cervical spine, w/o contrast 2024 025 [facility] (Centralized Scheduling), [address] [facility], [place], [address], 09/14/2024 18:01:22 Medication Orders None recorded. Patient TargetsNo targets recorded. Patient InstructionsNo instructions recorded. Reason for Referral Pain Management Referral for Chronic low back pain Referring Physician: Ameya House, Internal Medicine, Encounter Date: 08/09/2024 Results Created Date Observation Date Name Description Value Unit Range Abnormal Flag Note LastModifiedBy Organization Detail LastModifiedTime 09/13/19 25 09/12/2024 cardi ac stres s test No observ ation record ed. [address], [place], [address], 09/13/2024 20:30:29 09/13/19 25 09/12/2024 cardi ac stres s test No observ ation record ed. [address], [place], [address], 09/13/2024 20:30:29 09/15/19 25 09/14/2024 MRI, lumba r spine , w/o contr ast [facility] [address] [place] [address] Phone: Fax: Name: LANI LOYOLA Exam Date: : [birth year] Age 53 years Gender : F Access ion: [id number] [id number] Physic mendoza: Ameya Huose Facili ty: [facility] Facili ty HSV: Outpat ient Exam: MRI LUMBAR SPINE W/O MR LUMBAR SPINE WITHOU T IV CONTRA ST, 025 3:19 PM CDT EXAMIN ATION: MRI LUMBAR SPINE WITHOU T CONTRA ST CLINIC AL INDICA TION: Female , 53 years old. radicu lopath y lumbar lumbag o with sciati ca left side TECHNI QUE: Multip lanar multis equenc e MR images were obtain ed of the lumbar spine withou t intrav enous contra st. Unless otherw ise specif ied, incide ntal findin gs do not requir e dedica magnolia soto g follow -up. [id number] . COMPAR ELISHA: Plain films Septem 2019. FINDIN GS: Multip le T1 dark, T2 bright renal lesion s bilate rally, incomp letely charac terize d but favor benign cyst. The prever tebral soft tissue s are within normal limits . Modera te edema like signal can be seen adjace nt to the facets at L4/L5 and L5/S1. Additi on, there is increa sed edema like signal within the pedicl es and facets of L4-L5, likely reacti ve edema from degene rative change or altere d biomec hanics . No acute fractu re or sublux ation. Verteb ral body height s are preser katlin, and facet joints are aligne d. Degene rative marrow signal change s at L5/S1. No focal pathol ogic marrow lesion . Multil evel degene rative disc desicc ation. Conus termin ates at L1. Normal cord signal withou t nerve root thicke pratibha. No defini te spinal canal mass. Degene rative Change s: T12/L1 : No signif icant stenos is. L1/2: Minima l disc bulge. Mild facet hypert rophy. Minima l forami nal narrow ing. L2/3: Disc bulge. Facet hypert rophy. Modera te centra l canal stenos is. Modera te bilate ral forami nal stenos is. L3/4: Mild disc bulge. Facet hypert rophy. Mild to modera te centra l canal stenos is. Modera te bilate ral forami nal stenos is. L4/5: Mild disc bulge. Facet hypert rophy. Mild centra l canal stenos is. Modera te to advanc ed right greate r than left forami nal stenos is. L5/S1: Disc bulge. Facet hypert rophy. Modera te to advanc ed bilate ral forami nal stenos is. IMPRES LORNE: No acute fractu re. Normal cord signal . Degene rative change s as above. . . . S/D/G Electr onical ly signed by: Kirill Flynn se, MD 2024 05:45 PM EDT RP Workst ation: [id number] Dictat ed By: Kirill Flynn se Legall y authen ticate d by KARL Valencia 09-14 17:45: 24 Transc ribed By: Transc ribed On: 025 5:45 PM Electr onical ly signed by: Kirill Flynn se 025 Thank you for referr charly ThompsonSHAHZAD COOKIE to [facility]. Legall y authen ticate d by KARL Valencia 09-14 17:45: 24 CC'ed Logic: Orderi ng Provid er: BRANDI SHORT CC Provid er: BRANDI SHORT Attend ing Provid er: BRANDI SHORT Referr ing Provid er: BRANDI SHORT Admitt ing Provid er: BRANDI SHORT [facility] [place], [address], 09/14/2024 17:50:53 09/15/19 25 09/14/2024 MRI, cervi gómez spine , w/o contr ast [facility] [address] [place] [address] Phone: Fax: Name: LANI LOYOLA Exam Date: : [birth year] Age 53 years Gender : F Access ion: [id number] [id number] Physic mendoza: Ameya House Facili ty: [place] Facili ty HSV: Outpat ient Exam: MRI CERVIC AL SPINE W/O EXAMIN ATION: MRI CERVIC AL SPINE WITHOU T CONTRA ST CLINIC AL INDICA TION: Female , 53 years old. radicu lopath y cervic al cervic algia TECHNI QUE: Multip lanar multis equenc e MR images were obtain ed of the cervic al spine withou t intrav enous contra st. Unless otherw ise specif ied, incide ntal findin gs do not requir e dedica magnolia imagin g follow -up. [id number] . COMPAR ELISHA: 29 September 2022 FINDIN GS: Benign bone marrow signal . Mild multil evel degene rative disc diseas e. Mild diffus e disc bulgin g best apprec iated at C4-5 and C5-6. This does not appear to be associ ated with signif icant canal encroa chment . Unrema rkable appear ing cervic al cord. Unrema rkable extras larry soft tissue s. IMPRES LORNE: Multil evel mild degene rative disc diseas e with mild disc bulgin g best apprec iated at C4-5 and C5-6. Electr onical ly signed by: Paul carcamo MD 2024 05:55 PM EDT RP Workst ation: [id number] Dictat ed By: PAUL TEJEDA Transc ribed By: Transc ribed On: 025 5:55 PM Electr onical ly signed by: PAUL TEJEDA 025 Thank you for referr charly ROBERTSON LANI to [facility]. Legall y authen ticate d by KALLIE COHEN 09-14 17:55: 54 CC'ed Logic: Orderi ng Provid er: BRANDI SHORT CC Provid er: BRANDI SHORT Attend ing Provid er: BRANDI SHORT Referr ing Provid er: BRANDI SHORT Admitt ing Provid er: BRANDI SHORT [facility] [address] [facility], [place], [address], 09/14/2024 18:01:22 Result Notes None recorded. Problems Name Problem SNOMED Code Status Onset Date Resolution Date Notes Provider Name and Address Organization Details Recorded Time Coronary arteriosc lerosis 25129266 Active 2023 Ameya House MD [address] , [place], [address] , [place] [facility] [place] [facility] [place] 4 08:31:50 Myofascia l pain 888445561 Active 2024 ERIN SANTOS DO [address], [place], [address] , [place] [facility] [place] 5 15:40:33 Lumbar spondylos is 929257071 Active 2024 ERIN SANTOS DO [address] , [place], [address] , [place] [facility] [place] [facility] [place] 5 15:40:34 Subjectiv e tinnitus of right ear 53122316747 45168 Active Kiki Brown null, [place] [facility] 5 09:48:12 Dysphagia 53341861 Active Kiki Brown null, [place] [facility]rina 5 09:48:12 Tinnitus of right ear 71202502792 08 Active Kiki Brown null, [place] [facility] [place] [facility] [place] 5 09:48:12 Cervical spondylos is 465953494 Active 2024 ERIN SANTOS DO [address] , [place], [address] , [place] [facility] [place] [facility] [place] 5 21:22:23 Periphera l neuralgia 82866294 Active 2024 ERIN SANTOS DO [address] , [place], [address] , [place] [facility] [place] [facility] [place] 5 21:23:36 Mild recurrent major depressio n 44036487 Active Ameya House MD [address], [place], [address] , [place] [facility] & [place] 2 16:18:39 Degenerat ion of thoracic intervert ebral disc 14024900 Active Ameya House MD [address] , [place], [address] , [place] [facility] & [place] 2 16:18:39 Essential hypertens ion 06006558 Active MD [address], [place], [address] , [place] [facility] & [place] 2 16:18:39 Subjectiv e tinnitus of right ear 09251846650 69182 Completed 03/01/2022 Ameya House MD [address], [place], [address] , [place] [facility] & [place] 2 16:18:48 Chronic pain syndrome 802101324 Active ERIN SANTOS DO [address] [place], [address] , [place] [facility] & [place] 5 21:22:23 Tinnitus of right ear 84162451023 08 Completed 03/01/2022 Ameya House MD [address], [place], [address] , [place] [facility] & [place] 2 16:18:48 Chronic kidney disease stage 1 761831750 Active MD [address] , [place], [address] , [place] [facility] & [place] 2 16:18:39 Chronic pain 74310786 Active MD [address] , [place], [address] , [place] [facility] & [place] 2 16:18:39 Migraine 77239724 Active MD [address] , [place], [address] , [place] [facility] & [place] 2 16:18:39 Thoracic spondylos is 389148672 Active Ameya House MD [address] , [place], [address] , [place] [facility] & [place] 2 16:18:39 Hyperlipi demia 91071744 Active Ameya House MD [address], [facility] [address] , [place] [facility] & [place] 2 16:18:39 Spinal enthesopa thy 81304919 Active Ameya House MD [address] , [place], [address] [facility] [place] [facility] & [place] 2 16:18:39 Body mass index 30+ - obesity 177712852 Active Ameya House MD [address], [facility] [address] , [place] [facility] & [place] 2 16:18:39 Gastroeso phageal reflux disease without esophagit is 420481671 Active Ameya House MD [address] , [place], [address] [facility] [place] [facility] & [place] 2 16:18:39 Fibromyal kathy 169820935 Active ERIN SANTOS DO [address] , [facility] [address] [facility] [place] [facility] & [place] 5 21:22:25 Dysphagia 97407416 Completed 03/01/[address], [facility] [address] [facility] [place] - [facility] & [place] 2 16:18:48 Constipat ion 78725102 Active Ameya House MD [address], [facility] [address] [facility] [place] - [facility] & [place] 2 16:18:39 Problem Notes None recorded. Procedures Surgical History Date Name Laterality Status Provider Name and Address Organization Details Recorded Time 2023 completed Florinda HUBER - [facility] - [place] [facility] [place] 4 09:18:17 2023 Most Recent Mammogram completed Florinda HUBER - [facility] [place] [facility] [place] 4 09:23:00 2022 Date of Last Pap Smear completed Florinda HUBER - [facility] [place] [facility] [place] 4 09:18:17 2021 Date of Last Colonoscopy completed Rachel anaya Sam [place] - [facility] - [place] [facility] [place] 3 12:28:09 2021 esophagogastroduodenoscopy completed Osmar HUBER - [facility] - [place] [facility] [place] 3 09:57:04 2021 Colonoscopy completed Tanya Scaleson [place] - [facility] [place] [facility] [place] 3 09:56:53 2004 Total Hysterectomy completed Tanya HUBER - [facility] - [place] [facility] [place] 3 09:53:55 2004 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 Procedure Notes None recorded. Medical Equipment None Reported. Allergies No known drug allergies Medications Name Sig Start Date Stop Date Status Note LastModified by Organization Details LastModified Time quetiapin e 25 mg tablet TAKE 1 TABLET BY MOUTH AT BEDTIME NIGHTLY active Not Available Not Available No t Available celecoxib 200 mg capsule TAKE 1 CAPSULE BY MOUTH ONCE DAILY active Not Available Not Available No t Available amoxicill in 500 mg capsule TAKE 1 [...] Not Available Not Available No t Available amlodipin e 5 mg tablet TAKE 1 TABLET BY MOUTH [...] t Available methocarb ines 750 mg tablet Take 1 tablet twice a day by oral route at bedtime for 30 days. 2024 active Not Available Not Available Not Avai lable estradiol 1 mg tablet 02/28 completed Not [...] Updated DateTime 5 172.72 cm 38.5 kg/m2 886071. 87 g 97.1 [degF] 98 % 98 % 77 /min 120 mm[Hg] 86 mm[Hg] Mikki [facility] & [place] 16:23:14 Social History Question Answer Notes LastModified by Organizat ion Details LastModified Time Tobacco Smoking Status Current Every Day Smoker Ghislaine Pinzon [facility] & [place] 03/01/2022 15:16:23 Do You Have [...] Of Your Most Recent Tobacco Screening? 01/09/2024 [email or web address] Information not available 03/26/2024 What Is Your Current Pack Years? [email or web address] Information not available 03/26/2024 Do You Have [...] Many Years Have You Smoked Tobacco? 37 [email or web address] Information not available 03/26/2024 Do You Have [...] 04/04/2023 What is your exercise level? Occasional [email or web address] Information not available 06/14/2022 Mental Status Question Answer Note LastModified by Organizat ion Details LastModified Time Do you feel stressed (tense, restless, nervous, or anxious, or unable to sleep at night)? [id number] [email or web address] Information not available 03/26/2024 Do you have [...] available 08/16 14:19:53 Medical History Condition Response Anxiety Disorder Y Other Y Arthritis Y Ear or Hearing Problems Y Congestive Heart Failure (CHF) Y Acid Reflux (GERD) Y Back Problems Y Depression Y Difficulty Swallowing Y Reflux/GERD Y High Cholesterol Y Psychiatric/Mental Health Condition Y Headaches Y Fibromyalgia Y Hypertension Y Kidney Disease Y Gynecological History Statement/Question Response Abnormal Pap [...] SNOMED-CT Code Diagnosis ICD10 Code Diagnosis Note [id number] Ameya House MD [facility] and Demar[address] carcamo [address] [facility] [place] [address] 07/24/2024 10:38:10 07/24/2024 12:02:42 Long-term current use of drug therapy 875854263 Z79.899 Hyperlipidemia 55743793 E78.5 Pt is counselled on routine dietary and lifestyle changes including low fat and low carb diets. Routine lipid panels yearly. Cardiac risk discussed with patient as well today. No changes to lipid regimen today. Pt will work on lifestyle changes to modify risk factors and lipid levels Fibromyalgia 226656499 M 79.7 Stable on current regimen today. Continue the current prescribed regimen with no changes today. Ok to return to work at this time without restrictio ns. Mild recur rent major depression 20994029 F33.0 Stable on current regimen today. Continue the current prescribed regimen with no changes today. Essential hypertension 62851062 I10 Hypertensi on is not well controlled [...] . Chronic ki dney disease stage 1 638736945 N18.1 Stable on current regimen today. Continue the current prescribed regimen with no changes today. Chronic pain syndrome 37 3160925 G89.4 Ekasper reviewed today, is compliant, & [...] current. Gastroesop hageal reflux disease without esophagitis 925467820 K21.9 Symptoms are stable and well controlled on the current GERD regimen. There are no signs or symptoms of warning/re d flag concerns. Pt denies: dysphagia, odynophagi a, or blood in stool. If sxs start to worsen or change the pt will RTC. Hyperglycemia 16264808 R 73.9 A1c stable [id number] MD Jannet P[address] [facility] and Demarco carcamo [address], [place] [address] 08/09/2024 15:53:05 08/09/2024 17:13:11 Chronic low back pain 761565473 G89.29 M54.42 M54.16 Neck pain 48929778 M54.2 M54.12 Health Concerns Section Related Observation LastModified by Organization Detai ls LastModified Time None Recorded Concern Status LastModified by Organization Details LastModified Time None Recorded Payers Encounter Date Sequence Insurance Name Policy Number Policy Hardin Covered Member ID Hardin Member ID Guarantor Name 08/09/2024 1 [employer] [id number] Lani Espinoza [id number] W Lani Espinoza Notes Date Note Type Note Provider Name and Address Organization Details Recorded Time 08/09/2024 text/html Here b/c she is feeling so terrible and with severe pain. Lani Espinoza is a 53-year-old female who presents [...] the bottom shelf due to the pain. Lani has a history of fibromyalgia and has been taking celecoxib, duloxetine, and gabapentin for her condition. She has previously been denied disability twice and has a court date set for September. She also reports experiencing chest pain similar to her previous heart attack when she is in severe pain. She has an appointment with her regional director next month.1.) Fibromyalgia: Here for routine FU. [...] and pain as well Ameya House MD [address] [facility], [place], [address], [place] [facility] [place] 08/12/2024 20:22:48 OBGyn Episode No OBEpisode recorded.
--- OUTSIDE RECORDS SUMMARY | 2024-09-20 14:44 | XMS_ITS | Data Portability ---
Author Organization [place] [facility] [place] & [place] ADMIN Address [address] [place] [address] Care Team Providers Care Financial Planning Advisor Name Role Phone AMEYA HOUSE Primary Care [...] to work on 07/30 without any restrictions. [email or web address] Not available 08/12/2024 21:41:23 08/09/2024 08/09/2024 ASSESSMENT: - Severe back pain - Fibromyalgia - Numbness and tingling in the left leg - Numbness and tingling in the arms - Chest pain -- around lateral chest wall from back PLAN: - Referral to a paint and table edger to explore options for managing chronic pain. [...] improve function. - Follow up with the district adviser next month. [email or web address] Not available 08/12/2024 20:22:24 08/16/2024 08/16/2024 Images [...] Wt loss, OMT, mindfulness meditation - Consider [employer] [facility]'s [employer] as a resource 3. #Myofascial Pain Syndrome,Chronic [...] Last Modified Time Details Appointments OV EST 15 2024 03:00P Pilar SANTOS, DO Not available Not available Not available PROC 15 2024 01:45P Pilar SANTOS, DO Not available Not available Not available OV EST 20 2024 09:40A Pilar House MD Not available Not available Not available Lab drug screen, 14 drugs (detectim ed), urine 2024 025 VIANNEY [facility], [address], [address], [place], [address], 07/28/2024 07:03:57 HbA1c (hemoglob in A1c), blood 2023 024 VIANNEY [facility], [address], [address], [place], [address], 01/13/2024 09:39:52 CBC w/ auto diff 2023 024 VIANNEY [facility], [address], [address], [place], [address], 01/13/2024 09:39:51 drug screen, 14 drugs (detectim ed), urine 2023 024 VIANNEY [facility], [address], [address], [place], [address], 01/18/2024 09:39:08 CMP, serum or plasma 2023 024 VIANNEY [facility], [address], [address], [place], [address], 01/13/2024 09:39:51 lipid panel, serum 2023 024 VIANNEY [facility], [address], [address], [place], [address], 01/13/2024 09:39:52 Referral pain managemen t referral 2024 025 [email or web address] Issa Means, [address], [address], [place], [address], 09/13/2024 15:50:55 Procedures nerve block, intercost al (PROC) - [address], [address] right T9-t11 intercost al nerve block 2024 025 [email or web address] Erin Ming DO, [address], [address], [place], [address], 08/21/2024 08:14:31 Surgeries None recorded. Imaging MRI, lumbar spine, w/o contrast 2024 025 [facility] (Centralized Scheduling), [address] [place], [address], 09/14/2024 17:50:52 MRI, cervical spine, w/o contrast 2024 025 [facility] (Centralized Scheduling), [address] [place], [address], 09/14/2024 18:01:22 Medication Orders methocarb ines 750 mg tablet 2024 025 [facility], [address] [place] [address], [address], 08/16/2024 15:43:04 lidocaine 5 % topical patch 2024 025 [facility] [address], [address] [place] [address], [address], 08/16/2024 15:43:03 metoprolo l succinate ER 50 mg tablet,ex tended release 24 hr 2024 025 [facility], [address] [place] [address], [address], 08/20/2024 09:48:07 nicotine 21 mg/24 hr daily transderm al patch 2023 024 [facility] [address], [address] [place] [address], [address], 01/12/2024 15:39:18 atorvasta tin 40 mg tablet 2023 024 [facility] [address], [address] [place] [address], [address], 09/02/2023 10:09:11 Patient TargetsNo targets recorded. Patient InstructionsNo instructions recorded. Reason for Referral Pain Management Referral for Chronic low back pain Referring Physician: Ameya House, Internal Medicine, Encounter Date: 08/09/2024 Results Created Date Observation Date Name Description Value Unit Range Abnormal Flag Note LastModifiedBy Organization Detail LastModifiedTime 01/12/20 24 01/13/2024 CMP14 +EGFR glucose 91 mg/dL 70-99 normal Not Available [facility] ([facility]) [address] [place], [address], 01/13/2024 09:39:51 01/12/20 24 01/13/2024 CMP14 +EGFR BUN 9 mg/dL 6-24 normal Not Available [facility] ([facility]) [address] [place], [address], 01/13/2024 09:39:51 01/12/20 24 01/13/2024 CMP14 +EGFR creatinine 0.99 mg/dL 0.57-1 .00 normal Not Available [facility] ([facility]) [address] [place], [address], 01/13/2024 09:39:51 01/12/20 24 01/13/2024 CMP14 +EGFR eGFR 68 mL/mi n/1.7 3 >59 normal Not Available [facility] ([facility]) [address] [place], [address], 01/13/2024 09:39:51 01/12/20 24 01/13/2024 CMP14 +EGFR BUN/creatini ne ratio 9 9-23 normal Not Available [facility] ([facility]) [address] [place], [address], 01/13/2024 09:39:51 01/12/20 24 01/13/2024 CMP14 +EGFR sodium 140 mmol/ L 134-14 4 normal Not Available [facility] ([facility]) [address] [place], [address], 01/13/2024 09:39:51 01/12/20 24 01/13/2024 CMP14 +EGFR potassium 5.0 mmol/ L 3.5-5. 2 normal Speci men recei katlin hemol yzed. Value may be incre ased by hemol ysis. Clini gómez corre latio n indic ated. Not Available [facility] ([facility]) [address] [facility] [place], [address], 01/13/2024 09:39:51 01/12/20 24 01/13/2024 CMP14 +EGFR chloride 102 mmol/ L 96-106 normal Not Available [facility] ([facility]) [address] [facility] [place], [address], 01/13/2024 09:39:51 01/12/20 24 01/13/2024 CMP14 +EGFR carbon dioxide, total 21 mmol/ L 20-29 normal Not Available [facility] ([facility]) [address] [facility] [place], [address], 01/13/2024 09:39:51 01/12/20 24 01/13/2024 CMP14 +EGFR calcium 9.8 mg/dL 8.7-10 .2 normal Not Available [facility] ([facility]) [address] [place], [address], 01/13/2024 09:39:51 01/12/20 24 01/13/2024 CMP14 +EGFR protein, total 7.2 g/dL 6.0-8. 5 normal Not Available [facility] ([facility]) [address] [facility] [place], [address], 01/13/2024 09:39:51 01/12/20 24 01/13/2024 CMP14 +EGFR albumin 4.2 g/dL 3.8-4. 9 normal Not Available [facility] ([facility]) [address] [place], [address], 01/13/2024 09:39:51 01/12/20 24 01/13/2024 CMP14 +EGFR globulin, total 3.0 g/dL 1.5-4. 5 Not Available [facility] ([facility]) [address] [facility], [place], [address], 01/13/2024 09:39:51 01/12/20 24 01/13/2024 CMP14 +EGFR bilirubin, total <0.2 mg/dL 0.0-1. 2 Not Available [facility] ([facility]) [address] [facility], [place], [address], 01/13/2024 09:39:51 01/12/20 24 01/13/2024 CMP14 +EGFR alkaline phosphatase 118 IU/L 44-121 normal Not Available [facility]) [address] [facility], [place], [address], 01/13/2024 09:39:51 01/12/20 24 01/13/2024 CMP14 +EGFR AST (SGOT) 22 IU/L 0-40 normal Not Available [facility] ([facility]) [address] [facility], [place], [address], 01/13/2024 09:39:51 01/12/20 24 01/13/2024 CMP14 +EGFR ALT (SGPT) 14 IU/L 0-32 normal Not Available [facility] ([facility]) [address] [facility], [place], [address], 01/13/2024 09:39:51 01/12/20 24 01/13/2024 CBC WITH DIFFE RENTI AL/PL ATELE T WBC 11.8 x10e3 /uL 3.4-10 .8 above high normal Not Available [facility] ([facility]) [address] [facility], [place], [address], 01/13/2024 09:39:51 01/12/20 24 01/13/2024 CBC WITH DIFFE RENTI AL/PL ATELE T RBC 5.36 x10e6 /uL 3.77-5 .28 above high normal Not Available [facility] ([facility]) [address] [place], [address], 01/13/2024 09:39:51 01/12/20 24 01/13/2024 CBC WITH DIFFE RENTI AL/PL ATELE T hemoglobin 15.0 g/dL 11.1-1 5.9 normal Not Available [facility] ([facility]) [address] [place], [address], 01/13/2024 09:39:51 01/12/2001/13/2024 CBC WITH DIFFE RENTI AL/PL ATELE T hematocrit 46.8 % 34.0-4 6.6 above high normal Not Available [facility] ([facility]) [address] [place], [address], 01/13/2024 09:39:51 01/12/20 24 01/13/2024 CBC WITH DIFFE RENTI AL/PL ATELE T MCV 87 fL 79-97 normal Not Available [facility] ([facility]) [address] [place], [address], 01/13/2024 09:39:51 01/12/20 24 01/13/2024 CBC WITH DIFFE RENTI AL/PL ATELE T MCH 28.0 pg 26.6-3 3.0 normal Not Available [facility] ([facility]) [address] [place], [address], 01/13/2024 09:39:51 01/12/20 24 01/13/2024 CBC WITH DIFFE RENTI AL/PL ATELE T MCHC 32.1 g/dL 31.5-3 5.7 normal Not Available [facility] ([facility]) [address] [place], [address], 01/13/2024 09:39:51 01/12/20 24 01/13/2024 CBC WITH DIFFE RENTI AL/PL ATELE T RDW 12.5 % 11.7-1 5.4 Not Available [facility] ([facility]) [address] [facility], [place], [address], 01/13/2024 09:39:51 01/12/20 24 01/13/2024 CBC WITH DIFFE RENTI AL/PL ATELE T platelets 345 x10e3 /uL 150-45 0 normal Not Available [facility] ([facility]) [address] [facility], [place], [address], 01/13/2024 09:39:51 01/12/20 24 01/13/2024 CBC WITH DIFFE RENTI AL/PL ATELE T neutrophils 63 % not estab. normal Not Available [facility] ([facility]) [address] [facility], [place], [address], 01/13/2024 09:39:51 01/12/20 24 01/13/2024 CBC WITH DIFFE RENTI AL/PL ATELE T lymphs 29 % not estab. normal Not Available [facility] ([facility]) [address] [facility], [place], [address], 01/13/2024 09:39:51 01/12/20 24 01/13/2024 CBC WITH DIFFE RENTI AL/PL ATELE T monocytes 7 % not estab. normal Not Available [facility] ([facility]) [address] [facility], [place], [address], 01/13/2024 09:39:51 01/12/20 24 01/13/2024 CBC WITH DIFFE RENTI AL/PL ATELE T eos 1 % not estab. normal Not Available [facility] ([facility]) [address] [facility], [place], [address], 01/13/2024 09:39:51 01/12/20 24 01/13/2024 CBC WITH DIFFE RENTI AL/PL ATELE T basos 0 % not estab. normal Not Available [facility] (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) [address] [place], [address], 01/13/2024 09:39:51 01/12/20 24 01/13/2024 CBC WITH DIFFE RENTI AL/PL ATELE T neutrophils (absolute) 7.3 x10e3 /uL 1.4-7. 0 above high normal Not Available [facility] ([facility]) [address] [facility], [place], [address], 01/13/2024 09:39:51 01/12/20 24 01/13/2024 CBC WITH DIFFE RENTI AL/PL ATELE T lymphs (absolute) 3.5 x10e3 /uL 0.7-3. 1 above high normal Not Available [facility] ([facility]) [address] [place], [address], 01/13/2024 09:39:51 01/12/20 24 01/13/2024 CBC WITH DIFFE RENTI AL/PL ATELE T monocytes(ab solute) 0.8 x10e3 /uL 0.1-0. 9 normal Not Available [facility] ([facility]) [address] [place], [address], 01/13/2024 09:39:51 01/12/20 24 01/13/2024 CBC WITH DIFFE RENTI AL/PL ATELE T eos (absolute) 0.2 x10e3 /uL 0.0-0. 4 normal Not Available [facility] ([facility]) [address] [place], [address], 01/13/2024 09:39:51 01/12/20 24 01/13/2024 CBC WITH DIFFE RENTI AL/PL ATELE T baso (absolute) 0.1 x10e3 /uL 0.0-0. 2 normal Not Available [facility] ([facility]) [address] [facility] [place], [address], 01/13/2024 09:39:51 01/12/20 24 01/13/2024 CBC WITH DIFFE RENTI AL/PL ATELE T immature granulocytes 0 % not estab. Not Available [facility] ([facility]) [address] [facility] [place], [address], 01/13/2024 09:39:51 01/12/20 24 01/13/2024 CBC WITH DIFFE RENTI AL/PL ATELE T immature grans (abs) 0.0 x10e3 /uL 0.0-0. 1 Not Available [facility] ([facility]) [address] [facility], [place], [address], 01/13/2024 09:39:51 01/12/20 24 01/13/2024 CBC WITH DIFFE RENTI AL/PL ATELE T NRBC [employer]AC[employer] Not Available [facility] (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) [address] [place], [address], 01/13/2024 09:39:51 01/12/20 24 01/13/2024 LIPID PANEL cholesterol, total 170 mg/dL 100-19 9 normal Not Available [facility] ([facility]) [address] [place], [address], 01/13/2024 09:39:52 01/12/20 24 01/13/2024 LIPID PANEL triglyceride s 176 mg/dL 0-149 above high normal Not Available [facility] ([facility]) [address] [facility] [place], [address], 01/13/2024 09:39:52 01/12/20 24 01/13/2024 LIPID PANEL HDL cholesterol 41 mg/dL >39 normal Not Available [facility]) [address] [facility] [place], [address], 01/13/2024 09:39:52 01/12/20 24 01/13/2024 LIPID PANEL VLDL cholesterol gómez 31 mg/dL 5-40 Not Available [facility] ([facility]) [address] [facility] [place], [address], 01/13/2024 09:39:52 01/12/20 24 01/13/2024 LIPID PANEL LDL chol calc ([facility]) 98 mg/dL 0-99 Not Available 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) [address] [facility], [place], [address], 01/13/2024 09:39:52 01/12/20 24 01/13/2024 HEMOG LOBIN A1C hemoglobin A1C 5.8 % 4.8-5. 6 above high normal Predi abete s: 5.7 - 6.4 Diabe zeynep: >6.4 Glyce araseli contr ol for adult s with diabe zeynep: <7.0 Not Available [facility] ([facility]) [address] [place], [address], 01/13/2024 09:39:52 01/12/20 24 01/18/2024 COMPL IANCE [...] ===== ===== ===== === Not Available [facility] ([facility] [place] [facility]) [address], [place], [address], 01/18/2024 09:39:08 01/12/20 24 01/18/2024 COMPL IANCE DRUG REUBEN SIS, UR pdf . Not Available [facility] ([facility]) [address], [place], [address], 01/18/2024 09:39:08 07/25/19 25 07/27/2024 COMPL IANCE [...] magaña consu ltati on, pleas e call [phone]. ===== ===== ===== ===== ===== ===== ===== ===== ===== ===== ===== ===== ===== === Not Available [facility] ([facility]) [address] [facility], [place], [address], 07/28/2024 07:03:57 07/25/19 25 07/27/2024 COMPL IANCE DRUG REUBEN SIS, UR pdf . Not Available [facility] ([facility]) [address] [facility], [place], [address], 07/28/2024 07:03:57 08/13/19 24 08/13/2023 XR, chest , 2 view No observ ation record ed. [email or web address] [facility] [address], [place], [address], 08/22/2023 14:40:29 08/14/19 24 08/12/2023 elect araceli sparrow am No observ ation record ed. [email or web address] [facility] [address], [place], [address], 08/22/2023 14:39:42 08/17/19 24 08/12/2023 US, echoc ardio gram, trans thora cic, compl ete, w/ color flow No observ ation record ed. [facility] [address], [place], [address], 08/21/2023 18:19:22 08/17/19 24 08/15/2023 US, echoc ardio gram, trans thora cic, compl ete, w/ color flow No observ ation record ed. VIANNEY [facility] [address], [place], [place], [address], 08/21/2023 18:19:23 09/19/19 24 09/16/2023 US, doppl er echoc ardio gram No observ ation record ed. [email or web address] [facility] [address], [place], [address], 09/26/2023 11:02:59 12/22/19 24 12/22/2023 MAMMO , scree pratibha, digit al, bilat eral No observ ation record ed. [email or web address] [place] [address] (Radiology) [address] , [place], [address], 01/17/2024 10:43:31 02/07/20 24 02/06/2024 stres s echoc ardio gram No observ ation record ed. [email or web address] [place] [address], [place], [place], [address], 02/08/2024 15:27:47 09/13/19 25 09/12/2024 cardi ac stres s test No observ ation record ed. [email or web address], [place], [address], 09/13/2024 20:30:29 09/13/19 25 09/12/2024 cardi ac stres s test No observ ation record ed. [email or web address] [address], [place], [address], 09/13/2024 20:30:29 09/15/19 25 09/14/2024 MRI, lumba r spine , w/o contr ast [facility] [place] [address] [facility] [place] [address] Phone: Fax: Name: LANI LOYOLA Exam Date: : [birth year] Age 53 years Gender : F Access ion: [id number] Physic mendoza: Ameya House Facili ty: [facility] Facili ty HSV: Outpat ient Exam: MRI [...] e dedica magnolia imagin g follow -up. [id number] . COMPAR ELISHA: Plain films Septem 2019. [...] Flynn se 025 Thank you for referr LANI De Jesus to [facility] [place]. Legall y authen ticate d by KARL Valencia 09-14 17:45: 24 CC'ed Logic: Orderi ng Provid er: BRANDI SHORT CC Provid er: BRANDI SHORT Attend ing Provid er: BRANDI SHORT Referr ing Provid er: BRANDI SHORT Admitt ing Provid er: BRANDI SHORT [facility] [address] [facility], [place], [address], 09/14/2024 17:50:53 09/15/19 25 09/14/2024 MRI, cervi gómez spine , w/o contr ast [facility] [place] [address] [place] [address] Phone: Fax: Name: LANI LOYOLA Exam Date: 025 : [birth year] Age 53 years Gender : F Access ion: [id number] Physic mendoza: Ameya House Facili ty: [place] Facili ty HSV: Outpat ient Exam: MRI [...] e dedica magnolia imagin g follow -up. [id number] . COMPAR ELISHA: 29 September 2022 FINDIN [...] PAUL TEJEDA 025 Thank you for referr LANI De Jesus to [facility]. Legall y authen ticate d by KALLIE COHEN 0 09-14 17:55: 54 CC'ed Logic: Orderi ng Provid er: BRANDI SHORT CC Provid er: BRANDI SHORT Attend ing Provid er: BRANDI SHORT Referr ing Provid er: BRANDI SHORT Admitt ing Provid er: BRANDI SHORT [facility] [address] , [place], [address], 09/14/2024 18:01:22 Result Notes None recorded. Problems Name Problem SNOMED Code Status Onset Date Resolution Date Notes Provider Name and Address Organization Details Recorded Time Coronary arteriosc lerosis 54431097 Active 2023 Ameya House MD [address] , [place], [address] , [place] [facility] [place] & [place] 4 08:31:50 Myofascia l pain 715853238 Active 2024 ERIN SANTOS DO [address] , [place], [address] , [place] [facility] [place] & [place] 5 15:40:33 Lumbar spondylos is 435833636 Active 2024 ERIN SANTOS DO [address] , [place], [address] , [place] [facility] [place] & [place] 5 15:40:34 Subjectiv e tinnitus of right ear 09970556355 95030 Active Kiki Kasper null, [place] [facility] [place] & [place] 5 09:48:12 Dysphagia 44886845 Active Kiki Kasper null, [place] [facility] [place] 5 09:48:12 Tinnitus of right ear 14693099952 08 Active Kiki Kasper null, [place] [facility] [place] 5 09:48:12 Cervical spondylos is 143183611 Active 2024 ERIN SANTOS DO [address] , [place], [address] , [place] [facility] [place] & [place] 5 21:22:23 Periphera l neuralgia 58529402 Active 2024 ERIN SANTOS DO [address], [place], [address] , [place] [facility] [place] 5 21:23:36 Mild recurrent major depressio n 16132092 Active Ameya House MD [address], [place], [address] , [place] [facility] [place] & [place] 2 16:18:39 Degenerat ion of thoracic intervert ebral disc 92875541 Active Ameya House MD [address] , [place], [address] , [place] [facility] [place] & [place] 2 16:18:39 Essential hypertens ion 43254219 Active Ameya House MD [address], [place], [address] , [place] [facility] [place] & [place] 2 16:18:39 Subjectiv e tinnitus of right ear 17117970240 95379 Completed 03/01/2022 Ameya House MD [address] , [place], [address] , [place] [facility] [place] & [place] 2 16:18:48 Chronic pain syndrome 587427648 Active ERIN SANTOS DO [address], [place], [address] , [place] [facility] [place] & [place] 5 21:22:23 Tinnitus of right ear 23662848061 08 Completed 03/01/2022 Ameya House MD [address] , [place], [address] , [place] [facility] & [place] 2 16:18:48 Chronic kidney disease stage 1 493106809 Active Ameya House MD [address] , [place], [address] , [place] [facility] & [place] 2 16:18:39 Chronic pain 72916682 Active MD [address] , [place], [address] , [place] [facility] [place] & [place] 2 16:18:39 Migraine 19065033 Active Ameya House MD [address] , [place], [address] , [place] - [facility] & [place] 2 16:18:39 Thoracic spondylos is 560160195 Active Ameya House MD [address] [facility] [address] , [place] [facility] & [place] 2 16:18:39 Hyperlipi demia 07535411 Active MD [address], [facility] [address] - [facility] & [place] 2 16:18:39 Spinal enthesopa thy 99136226 Active MD [address] - [facility] & [place] 2 16:18:39 Body mass index 30+ - obesity 114732108 [facility] [address] - [facility] & [place] 2 16:18:39 Gastroeso phageal reflux disease without esophagit is 645441088 Active Ameya House MD [address] [facility] [address] , [place] [facility] & [place] 2 16:18:39 Fibromyal kathy 755387566 Active ERIN SANTOS DO [address] [facility] [address] , [place] [facility] & [place] 5 21:22:25 Dysphagia 09160768 Completed 03/01/2022 [facility] [address] , [place] [facility] & [place] 2 16:18:48 Constipat ion 10915443 Active MD [address], [facility] [address] , [place] [facility] & [place] 2 16:18:39 Problem Notes None recorded. Procedures Surgical History Date Name Laterality Status Provider Name and Address Organization Details Recorded Time 2023 completed Florinda HUBER - [place] [place] [facility] [place] 4 09:18:17 2023 Most Recent Mammogram completed Florinda HUBER - [facility] [place] & [place] 4 09:23:00 2022 Date of Last Pap Smear completed Florinda HUBER - [facility] [place] & [place] 4 09:18:17 2021 Date of Last Colonoscopy completed Kennedy HUBER - [facility] [place] & [place] 3 12:28:09 2021 esophagogastroduodenoscopy completed Osmar HUBER - [facility] [place] & [place] 3 09:57:04 2021 Colonoscopy completed Tanya HUBER - [facility] [place] & [place] 3 09:56:53 2004 Total Hysterectomy completed Tanya HUBER - [facility] [place] & [place] 3 09:53:55 2004 Category Planner Surgery completed Ghislaine HUBER - [facility] [place] & [place] 2 15:16:23 1993 Cholecystectomy completed Tanya HUBER - [facility] [place] & [place] 3 09:54:30 1993 Abdominal Surgery completed Ghislaine HUBER - [facility] [place] & [place] 2 15:16:23 Dilation and curettage completed José HUBER - [facility] [place] & [place] 3 09:54:25 Imaging Results None recorded. Procedure [...] Updated DateTime 5 172.72 cm 38.5 kg/m2 374225. 87 g 96.8 [degF] 98 % 98 % 74 /min 150 mm[Hg] 90 mm[Hg] Mikki HUBER - LPNT [facility] 5 11:10:08 Date Recorded Body height Body mass index (BMI) Body weight Body temperature Oxygen saturation Oxygen saturation in Arterial blood by Pulse oximetry Heart rate Systolic blood pressure Diastolic blood pressure Provider Name and Address Organization Details Last Updated DateTime 5 172.72 cm 38.5 kg/m2 083594. 87 g 97.1 [degF] 98 % 98 % 77 /min 120 mm[Hg] 86 mm[Hg] Mikki Murphy [place] - LPNT [facility] & [place] 5 16:23:14 Date Recorded Body height Body mass index (BMI) Body weight Body temperature Oxygen saturation Oxygen saturation in Arterial blood by Pulse oximetry Heart rate Systolic blood pressure Diastolic blood pressure Provider Name and Address Organization Details Last Updated DateTime 5 172.72 cm 37.7 kg/m2 086725. 91 g 97.2 [degF] 99 % 99 % 74 /min 156 mm[Hg] 90 mm[Hg] Kiki Kasper [facility] & [place] 5 09:47:57 Date Recorded Body height Body mass index (BMI) Body weight Body temperature Heart rate Oxygen saturation Oxygen saturation in Arterial blood by Pulse oximetry Systolic blood pressure Diastolic blood pressure Provider Name and Address Organization Details Last Updated DateTime 4 172.72 cm 35.7 kg/m2 397154. 49 g 98.2 [degF] 88 /min 98 % 98 % 139 mm[Hg] 83 mm[Hg] Iraida Negrete [facility] & [place] 4 09:19:42 Date Recorded Body height Body mass index (BMI) Body weight Body temperature Oxygen saturation Oxygen saturation in Arterial blood by Pulse oximetry Heart rate Systolic blood pressure Diastolic blood pressure Provider Name and Address Organization Details Last Updated DateTime 4 172.72 cm 36.9 kg/m2 789509. 95 g 97.5 [degF] 97 % 97 % 90 /min 134 mm[Hg] 87 mm[Hg] Mikki Murphy [facility] & [place] 4 14:57:54 Social History Question Answer Notes LastModified by Organizat ion Details LastModified Time Tobacco Smoking Status Current Every Day Smoker Ghislaine Pinzon [facility], [facility] & [place] 03/01/2022 15:16:23 Do You Have An Advance [...] Is Your Current Pack Years? [email or web address] Information not available 03/26/2024 Do You Have [...] Many Years Have You Smoked Tobacco? 37 [email or web address] Information not available 03/26/2024 Do You Have [...] 04/04/2023 What is your exercise level? Occasional [email or web address] Information not available 06/14/2022 Mental Status Question Answer Note LastModified by Organizat ion Details LastModified Time Do you feel stressed (tense, restless, nervous, or anxious, or unable to sleep at night)? [id number] [email or web address] Information not available 03/26/2024 Do you have [...] High Cholesterol Y Psychiatric/Mental Health Condition Y Fibromyalgia Y Headaches Y Hypertension Y Kidney Disease Y Gynecological [...] SNOMED-CT Code Diagnosis ICD10 Code Diagnosis Note [id number] MD Jannet Pimentel and JOSE EDUARDO [address] [place] [address] 03/01/2022 14:41:34 03/01/2022 16:34:10 Chronic kidney disease stage 1 186930199 N18.1 Stable on current regimen today. Continue the current prescribed regimen with no changes today. Chronic pain syndrome 37 9698568 G89.4 Ekasper reviewed today, is compliant, & [...] of controlled substances , UDS current. Constipation 93384358 K5 9.00 Stable on current regimen today. Continue the current prescribed regimen with no changes today. Essential hypertension 22765074 I10 restart arb as BP not well controlled Fibromyalgia 479509722 M 79.7 Stable on current regimen today. Continue the current prescribed regimen with no changes today. Gastroesop hageal reflux disease without esophagitis 115820517 K21.9 Hyperlipidemia 16344592 E78.5 restart statin as chol not well controlled . Migraine 32173469 G43.90 9 Stable on current regimen today. Continue the current prescribed regimen with no changes today. Mild recur rent major depression 40475142 F33.0 [id number] [facility] Beny [address]camo [address] [place] [address] 06/14/2022 10:34:07 06/14/2022 11:43:32 Fibromyalgia 245418481 M79.7 Stable on current regimen today. Continue the current prescribed regimen with no changes today. Chronic ki dney disease stage 1 017882877 N18.1 Stable on current regimen today. Continue the current prescribed regimen with no changes today. Chronic pain syndrome 37 1714293 G89.4 Ekasper reviewed today, is compliant, & [...] of controlled substances , UDS current. Constipation 80539066 K5 9.00 Stable on current regimen today. Continue the current prescribed regimen with no changes today. Essential hypertension 83387272 I10 restart arb as BP not well controlled Gastroesop hageal reflux disease without esophagitis 734932626 K21.9 Hyperlipidemia 73152509 E78.5 restart statin as chol not well controlled . Migraine 40475103 G43.90 9 Stable on current regimen today. Continue the current prescribed regimen with no changes today. Mild recur rent major depression 80573175 F33.0 Stable on current regimen today. Continue the current prescribed regimen with no changes today. Skin lesion 01683499 L98 .9 Adult heal th examination 961609294 Z00.01 We have discussed routine anticipato ry guidance based on the patient's age. Routine screening exams have been discussed in ordered appropriat e to the patient's age. I have recommende d routine health measures including a regular exercise regimen, healthy balanced diet, and routine safety measures including but not limited to seat belt use and sunscreen use. Hepatitis C screening 41 9178400 Z11.59 HIV screening 685972288 Z11.4 Carotid bruit 229922991 R09.89 [id number] MD [facility] Beny carcamo [address] [place] [address] 09/13/2022 08:39:22 09/13/2022 09:53:15 Long-term drug therapy 644213577 Z79.899 Screening mammography 24 770275 Z12.31 Chronic ki dney disease stage 1 592919024 N18.1 Stable on current regimen today. Continue the current prescribed regimen with no changes today. Fibromyalgia 900369319 M 79.7 Stable on current regimen today. Continue the current prescribed regimen with no changes today. Chronic pain syndrome 37 5468128 G89.4 Ekasper reviewed today, is compliant, & [...] of controlled substances , UDS current. Constipation 87953267 K5 9.00 Stable on current regimen today. Continue the current prescribed regimen with no changes today. Essential hypertension 73819100 I10 restart arb as BP not well controlled Gastroesop hageal reflux disease without esophagitis 792008465 K21.9 Hyperlipidemia 45478785 E78.5 Pt is counselled on routine dietary and lifestyle changes including low fat and low carb diets. Routine lipid panels yearly. Cardiac risk discussed with patient as well today. No changes to lipid regimen today. Pt will work on lifestyle changes to modify risk factors and lipid levels Migraine 40320539 G43.90 9 Stable on current regimen today. Continue the current prescribed regimen with no changes today. Mild recur rent major depression 27739620 F33.0 Stable on current regimen today. Continue the current prescribed regimen with no changes today. Carotid bruit 307226315 R09.89 Dizziness 916993412 R42 M54.12 M54.2 Proceed with MRI of cervical spine given symptoms. Near syncope 219815650 R 55 [id number] MD Jannet Pimentel and Beny carcamo [address] [place] [address] 04/04/2023 11:25:23 04/04/2023 12:40:38 Fibromyalgia 280519286 M79.7 Stable on current regimen today. Continue the current prescribed regimen with no changes today. Mild recur rent major depression 59069008 F33.0 Stable on current regimen today. Continue the current prescribed regimen with no changes today. Essential hypertension 37891544 I10 Titrate BP meds; not to goal today Chronic ki dney disease stage 1 209784328 N18.1 Stable on current regimen today. Continue the current prescribed regimen with no changes today. Chronic pain syndrome 37 4609215 G89.4 Ekasper reviewed today, is compliant, & [...] current. Gastroesop hageal reflux disease without esophagitis 200305753 K21.9 Hyperlipidemia 07412397 E78.5 Pt is counselled on routine dietary and lifestyle changes including low fat and low carb diets. Routine lipid panels yearly. Cardiac risk discussed with patient as well today. No changes to lipid regimen today. Pt will work on lifestyle changes to modify risk factors and lipid levels [id number] MD Jannet Pimentel and Beny carcamo [address] [place] [address] 01/12/2024 14:33:23 01/12/2024 15:47:10 Long-term drug therapy 424142056 Z79.899 Hyperlipidemia 49004639 E78.5 Pt is counselled on routine dietary [...] today. All questions have been answered. Fibromyalgia 872347390 M 79.7 Symptoms more severe and progressiv [...] that time. Mild recur rent major depression 15600335 F33.0 Stable on current regimen today. Continue the current prescribed regimen with no changes today. Essential hypertension 91396953 I10 Hypertensi on is well controlled currently; [...] . Chronic ki dney disease stage 1 564927050 N18.1 Stable on current regimen today. Continue the current prescribed regimen with no changes today. Chronic pain syndrome 37 4957769 G89.4 Ekasper reviewed today, is compliant, & [...] current. Gastroesop hageal reflux disease without esophagitis 555019343 K21.9 Symptoms are stable and well controlled on the current GERD regimen. There are no signs or symptoms of warning/re d flag concerns. Pt denies: dysphagia, odynophagi a, or blood in stool. If sxs start to worsen or change the pt will RTC. Nicotine dependence 5629 4008 F17.200 Hyperglycemia 16833957 R 73.9 [id number] Ameya House MD [facility] and IM [facility] carlos alberto [address] [place] [place] [address] 09/02/2023 09:09:13 09/02/2023 10:07:11 Hyperlipidemia 66915567 E78.5 Pt is counselled on routine dietary [...] 70 if not less than 55. Fibromyalgia 031393801 M 79.7 Symptoms more severe and progressiv e recently. Patient remains off work at this time and will likely not be able to return to work at the end of the 6 weeks off work from her non-STEMI. Mild recur rent major depression 02607280 F33.0 Stable on current regimen today. Continue the current prescribed regimen with no changes today. Essential hypertension 00548421 I10 Hypertensi on is well controlled currently; [...] . Chronic ki dney disease stage 1 860901644 N18.1 Stable on current regimen today. Continue the current prescribed regimen with no changes today. Chronic pain syndrome 37 6787960 G89.4 Ekasper reviewed today, is compliant, & [...] current. Gastroesop hageal reflux disease without esophagitis 317792341 K21.9 Symptoms are stable and well controlled on the current GERD regimen. There are no signs or symptoms of warning/re d flag concerns. Pt denies: dysphagia, odynophagi a, or blood in stool. If sxs start to worsen or change the pt will RTC. [id number] MD [facility] Beny carcamo [address] [place] [address] 07/24/2024 10:38:10 07/24/2024 12:02:42 Long-term current use of drug therapy 954468094 Z79.899 Hyperlipidemia 59154643 E78.5 Pt is counselled on routine dietary and lifestyle changes including low fat and low carb diets. Routine lipid panels yearly. Cardiac risk discussed with patient as well today. No changes to lipid regimen today. Pt will work on lifestyle changes to modify risk factors and lipid levels Fibromyalgia 569389510 M 79.7 Stable on current regimen today. Continue the current prescribed regimen with no changes today. Ok to return to work at this time without restrictio ns. Mild recur rent major depression 05408030 F33.0 Stable on current regimen today. Continue the current prescribed regimen with no changes today. Essential hypertension 04484540 I10 Hypertensi on is not well controlled [...] . Chronic ki dney disease stage 1 216499219 N18.1 Stable on current regimen today. Continue the current prescribed regimen with no changes today. Chronic pain syndrome 37 8156775 G89.4 Ekasper reviewed today, is compliant, & [...] current. Gastroesop hageal reflux disease without esophagitis 347501763 K21.9 Symptoms are stable and well controlled on the current GERD regimen. There are no signs or symptoms of warning/re d flag concerns. Pt denies: dysphagia, odynophagi a, or blood in stool. If sxs start to worsen or change the pt will RTC. Hyperglycemia 54295197 R 73.9 A1c stable [id number] MD [facility] and Beny [address]o [address] [place] [address] 08/09/2024 15:53:05 08/09/2024 17:13:11 Chronic low back pain 925161173 G89.29 M54.42 M54.16 Neck pain 93729627 M54.2 M54.12 [id number] ERIN SANTOS DO [facility]- [address] [place] [address] 08/16/2024 14:19:34 08/16/2024 15:45:32 Lumbar spondylosis 535789335 M47.816 Myofascial pain 33777274 9 M79.18 Chronic pain syndrome 37 9094751 G89.4 Cervical spondylosis 387 876416 M47.812 Fibromyalgia 350719827 M 79.7 Peripheral neuralgia 254 22416 M79.2 Health Concerns Section Related Observation LastModified by Organization Detai ls LastModified Time None Recorded Concern Status LastModified by Organization Details LastModified Time None Recorded Advance Directives Directive N: Payers Insurance Date Sequence Insurance Name Policy Number Policy Hardin Covered Member ID Hardin Member ID Guarantor Name 08/13/2024 1 [employer] [id number] Lani Erik Olga [id number] Lani Espinoza 08/13/2024 1 [place] [id number] Lani Espinoza [id number] Lani Espinoza 09/10/2024 1 [place] [id number] Lani Espinoza [id number] Lani Espinoza Notes Date Note Type Note [...] EF 45%--Hosp stay with NSTEMI 07/2023--Present to [place] ED with CP and found to have NSTEMI with elevated Trop Levels--Transfered to [facility]--Now on Entresto, Asp, Effient, Atorvastatin, but only 20mg of atorvastatin--Improving--H as Referral pending to Cardiac Rehab--FU with Cards 4., ECHO 09/16/23, Cards FU 09/26/2023 Echo prior to discharge showed mild global hypokinesis, moderate hypokinesis of the septum. Left ventricular ejection fraction of 45%. Echo prior to heart catheterization showed an EF 20%. Ameya House MD [address], [place], [address], [place] - [place] - [place] & [place] 09/02/2023 10:09:27 4 text/html Here for FU: [...] and was taken off work by the district adviser indefinitely. 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 Has been [...] EF 45%--Hosp stay with NSTEMI 07/2023--Present to [place] ED with CP and found to have NSTEMI with elevated Trop Levels--Transfered to [facility]--Now on Entresto, Asp, Effient, Atorvastatin, but only 20mg of atorvastatin--Improving--H as Referral pending to Cardiac Rehab--FU with Cards ., ECHO 09/16/23, Cards FU 09/26/2023 Echo prior to discharge showed mild global hypokinesis, moderate hypokinesis of the septum. Left ventricular ejection fraction of 45%. Echo prior to heart catheterization showed an EF 20%. Cardiology note January 104Coronary artery disease without angina Stableessential hypertension--well controlledTobacco use c ontinuesHyperlipidemia s tableHeart failure with improved ejection fraction, chronic diastolic heart failure s tablePlan:Coronary artery disease present and likely stableNon STEMI status post MANISH to LAD 4DAPT with aspirin and EffientHeart failure with improved ejection fraction with EF recovered now at 55% on September 16, 2023Hypertension with elevation blood pressure on the day of visit m etoprolol ER 25 mg once daily startingHyperlipidemia LDL goal is 55 with an LDL of 79 on July 2023--on high-dose statin Ameya House MD [address], [place], [address], [place] - [facility] - [place] [facility] [place] 01/23/2024 15:41:41 5 text/html Lani Espinoza is a 53-year-old female who presents for a medication follow-up. She reports no specific concerns today and states that her medications have remained unchanged since her last visit in February. She has a follow-up appointment with her district adviser in August. She mentions experiencing a new [...] it was slightly elevated during her last district adviser visit in February and is elevated today. [...] She is currently not seeing a counselor.4.) [facility]:--colonoscopy: Has family hx of colonoscopy and needs [...] EF 45%--Hosp stay with NSTEMI 07/2023--Present to [place] ED with CP and found to have NSTEMI with elevated Trop Levels--Transfered to [facility]--Now on Entresto, Asp, Effient, Atorvastatin, but only [...] 02/2024 Cards noteCAD is stableNon-STEMI s/p MANISH 4.2024DAPT with aspirin and EffientHFimpEF is present EF recovered now to 55%HTN acceptable BP Cardiology note Janoronary artery disease without angina Stableessential hypertension--well controlledTobacco use c ontinuesHyperlipidemia s tableHeart failure with improved ejection fraction, chronic diastolic heart failure s tablePlan:Coronary artery disease present and likely stableNon STEMI status post MANISH to LAD 4DAPT with aspirin and EffientHeart failure with improved ejection fraction with EF recovered now at 55% on September 16, 2023Hypertension with elevation blood pressure on the day of visit m etoprolol ER 25 mg once daily startingHyperlipidemia LDL goal is 55 with an LDL of 79 on July 2023--on high-dose statin Ameya House MD [address] [facility], [place], [address], [facility] - LPNT - [place] & [place] 08/12/2024 21:43:31 5 text/html Here b/c she [...] pain. She has an appointment with her district adviser next month.1.) Fibromyalgia: Here for routine FU. [...] and pain as well Ameya House MD [address], [place], [address], [facility] - [facility] - [place] & [place] 08/12/2024 20:22:48 5 text/html Patient presented with chronic pain in [...] a lot of walking and some lifting. Lani has been taking celecoxib, duloxetine, and gabapentin for her condition. She was previously denied disability twice and has a court date set for September. Referral: Ameya House [facility]- CAD s/p stent 07/2023, fibromyalgia 08/16/2024: Initial complaint: chronic neck, upper and lower back pain localized to the upper, mid, and low back Onset: >6 months Pain Location: neck, upper, low back, ribs Course: progressing over several months to a year Pain Quality: sharp, dull, achy, deep, tingling, stiffness Pain Intensity: 9 / 10 Aggravating Factors: prolong standing, prolong sitting, leaning backwards, lying flat, riding in cars for long periods, twisting, walking Alleviating Factors: hydrocodone Associated Symptoms: none-Patient currently denies saddle anesthesia, bowel/bladder incontinence, worsening/progressive weakness.-Functional Goals of Treatment: Reduce the pain level by 50% or more and restore function/mobility/quality of life.Current Medication:Opioids: NoneNSAIDS: celecoxibMuscle Relaxers:methocarbamolOthe rs: Gabapentin, cymbaltaPrevious Non-Interventional Treatment:- heat/ice, NSAIDS, TENS unit, lidocaine patch, chiropractor, PT, HEPInterventions/Consults: -Neurosurgery: none-Orthopedics: none-Interventional pain: none-Podiatry: noneSmoking: yesDiabetes: noA1C: unknownAnticoagulation: NoneAntiplatelets: prasugrel (Effient), ASAWork Status: employed ERIN MING, DO [address] [facility], [place], [address], [facility] 08/20/2024 21:32:17 OBGyn Episode No OBEpisode recorded.
--- OUTSIDE RECORDS SUMMARY | 2024-09-20 14:44 | XMS_ITS | Continuity of Care Document ---
Author Organization [facility] & [facility] [place] New Address [address] [place] [address] Care Team Providers Care Center Administrator Name Role Phone BRANDI AMEYA Primary Care Provider Assessment Encounter Date Assessment [...] Wt loss, OMT, mindfulness meditation - Consider [employer] as a resource 3. #Myofascial Pain Syndrome,Chronic worsening -Trigger points noted in the b/l levator scapulae, rhomboid minor, semispinalis, splenius capitis, and trapezius, thoracic paraspinal muscles, major rhomboids, minor rhomboids, erector spinae, multifidus, quadratus lumborum, latissmus dorsi -Would recommend treatment options including PT, OMT, acupuncture -Will consider to order TPI's - Rx methocarbamol 750mg 1-2 times /day [email or web address] Not available 08/20/2024 21:31:56 Plan of Treatment Reminders Order Date Submit Date Provider Last Modified By Organization Details Last Modified Time Details Appointments OV EST 2024 03:00P M EBENEZER SANTOS, DO Not available Not available Not available PROC 2024 01:45P M EBENEZER SANTOS, DO Not available Not available Not available OV EST 2024 09:40A M Ameya House MD Not available Not available Not available Lab None recorded. Referral None recorded. Procedures nerve block, intercost al (PROC) - 24224, 51365 right T9-t11 intercost al nerve block 2024 025 [email or web address] Ebenezer Santos DO, [address] [address], [place], [address], 08/21/2024 08:14:31 Surgeries None recorded. Imaging None recorded. Medication Orders methocarb ines 750 mg tablet 2024 025 [facility] [place], [address], 08/16/2024 15:43:04 lidocaine 5 % topical patch 2024 025 [facility] [address] [place], [address], 08/16/2024 15:43:03 Patient TargetsNo targets recorded. Patient Instructions Encounter Date Encounter Id Patient Instructions Last Modified By Organization Details Last Modified Time 08/16/2024 [id number] I have discussed in great detail our [...] __ __ __ __ __ _ GUS: [id number] I have reviewed patient's GUS report prior to prescribing Schedule II, III, and IV medications that require review by law. [email or web address] Not available 08/20/2024 21:22:03 Reason for Referral None Reported. Results Created Date Observation Date Name Description Value Unit Range Abnormal Flag Note LastModifiedBy Organization Detail LastModifiedTime 09/13/19 25 09/12/2024 kunal mcintyre s test No observ ation record ed. [facility] [address], [place], [address], 09/13/2024 20:30:29 09/13/19 25 09/12/2024 cardi ac stres s test No observ ation record ed. [email or web address] [facility] [address], [place], [address], 09/13/2024 20:30:29 09/15/19 25 09/14/2024 MRI, lumba r spine , w/o contr ast [facility] [address] [place] [address] Phone: Fax: Name: LANI LOYOLA Exam Date: : [birth year] Age 53 years Gender : F Access ion: [id number] Physic mendoza: Ameya House Facili ty: [facility] Facili ty HSV: Outpat ient Exam: MRI LUMBAR SPINE W/O MR LUMBAR SPINE WITHOU T IV CONTRA ST, 3:19 PM CDT EXAMIN ATION: MRI LUMBAR [...] e dedica magnolia imagin g follow -up. [id number] . COMPAR ELISHA: Plain films Septem 2019. [...] onical ly signed by: Kirill Flynn se y 025 Thank you for referr LANI De Jesus to [facility] al. Legall y authen ticate d by KARL ELAINE Y Haja 09-14 17:45: 24 CC'ed Logic: Orderi frederic Provid er: BRANDI SHORT CC Provid er: BRANDI SHORT Attend ing Provid er: BRANDI SHORT Referr ing Provid er: BRANDI SHORT Admitt ing Provid er: BRANDI SHORT [facility] [address] [facility], [place], [address], 09/14/2024 17:50:53 09/15/19 25 09/14/2024 MRI, cervi gómez spine , w/o contr ast [facility] [address] [place] [address] Phone: Fax: Name: LANI LOYOLA Exam Date: 025 : [birth year] Age 53 years Gender : F Access ion: [id number] Physic mendoza: Ameya House Facili ty: [facility] Facili ty HSV: Outpat ient Exam: [...] e dedica magnolia imagin g follow -up. [id number] . COMPAR ELISHA: 29 September 2022 FINDIN [...] you for referr LANI De Jesus to [facility] al. Legall y authen ticate d by KALLIE COHEN 09-14 17:55: 54 CC'ed Logic: Orderi ng Provid er: BRANDI SHORT CC Provid er: BRANDI SHORT Attend ing Provid er: BRANDI SHORT Referr ing Provid er: BRANDI SHORT Admitt ing Provid er: BRANDI SHORT [facility] [address] [facility], [place], [address], 09/14/2024 18:01:22 Result Notes None recorded. Problems Name Problem SNOMED Code Status Onset Date Resolution Date Notes Provider Name and Address Organization Details Recorded Time Coronary arteriosc lerosis 77516338 Active 2023 Ameya House MD [address] [facility], [place], [address] , [place] [facility] [place] & [place] 4 08:31:50 Myofascia l pain 236648634 Active 2024 EBENEZER SANTOS DO [address] [facility], [place], [address] , [place] [facility] [place] & [place] 5 15:40:33 Lumbar spondylos is 900364809 Active 2024 EBENEZER SANTOS DO [address] [facility], [place], [address] , [place] [facility] [place] & [place] 5 15:40:34 Subjectiv e tinnitus of right ear 58414545009 05340 Active Kiki Brown null, [place] [facility] [place] & [place] 5 09:48:12 Dysphagia 04634003 Active Kiki Ranjith null, [place] [facility] [place] & [place] 5 09:48:12 Tinnitus of right ear 98273235583 08 Active Kiki Kasper null, [place] [facility] & [place] 5 09:48:12 Cervical spondylos is 006383005 Active 2024 EBENEZER SANTOS DO [address], [place], [address] , [place] [facility] & [place] 5 21:22:23 Periphera l neuralgia 26155723 Active 2024 EBENEZER SANTOS DO [address] , [facility] [address] , [place] [facility] & [place] 5 21:23:36 Mild recurrent major depressio n 62062369 Active MD Ty Pimentel [facility] [address] , [place] [facility] & [place] 2 16:18:39 Degenerat ion of thoracic intervert ebral disc 33486267 Active MD Ty Pimentel [facility] [address] , [place] [facility] & [place] 2 16:18:39 Essential hypertens ion 61910332 Active MD Ty Pimentel [facility] [address] , [place] [facility] [facility] & [place] 2 16:18:39 Subjectiv e tinnitus of right ear 29980530934 06084 Completed 03/01/2022 Ameya House MD [address] [facility] [address] , [place] [facility] [facility] & [place] 2 16:18:48 Chronic pain syndrome 776399932 Active DO Ty WEATHERS [facility] [address] , [place] [facility] & [place] 5 21:22:23 Tinnitus of right ear 87338013534 08 Completed 03/01/2022 MD Ty Pimentel [facility] [address] , [place] [facility] [facility] & [place] 2 16:18:48 Chronic kidney disease stage 1 771047324 Active Ameya House MD [address] [facility], [place], [address] , [place] [facility] [facility] & [place] 2 16:18:39 Chronic pain 55823055 Active Ameya House MD [address] [facility], [place], [address] , [place] [facility] [facility] & [place] 2 16:18:39 Migraine 92006251 Active Ameya House MD [address] [facility], [place], [address] , [place] [facility] [facility] & [place] 2 16:18:39 Thoracic spondylos is 870468185 Active Ameya House MD [address] [facility], [place], [address] , [place] [facility] [facility] & [place] 2 16:18:39 Hyperlipi demia 80113980 Active Ameya House MD [address] , [place], [address] , [place] [facility] & [place] 2 16:18:39 Spinal enthesopa thy 45851896 Active Ameya House MD [address], [place], [address] , [place] [facility] [facility] & [place] 2 16:18:39 Body mass index 30+ - obesity 222495072 Active Ameya House MD [address] , [place], [address] , [place] [facility] [facility] & [place] 2 16:18:39 Gastroeso phageal reflux disease without esophagit is 093115817 Active Ameya House MD [address], [place], [address] , [place] [facility] [facility] & [place] 2 16:18:39 Fibromyal kathy 583244875 Active EBENEZER SANTOS DO [address], [place], [address] , [place] & [place] 5 21:22:25 Dysphagia 21594010 Completed 03/01/2022 Ameya House MD [address], [place], [address] , [place] & [place] 2 16:18:48 Constipat ion 63294852 Active Ameya House MD [address], [place], [address] , [place] & [place] 2 16:18:39 Problem Notes None recorded. Procedures Surgical History Date Name Laterality Status Provider Name and Address Organization Details Recorded Time 2023 completed Florinda Luke [place] & [place] 4 09:18:17 2023 Most Recent Mammogram completed Florinda Luke [place] & [place] 4 09:23:00 2022 Date of Last Pap Smear completed Florinda Luke [place] & [place] 4 09:18:17 2021 Date of Last Colonoscopy completed Rachel Vargas [place] [facility] & [place] 3 12:28:09 2021 esophagogastroduodenoscopy completed Osmar Souza [place] & [place] 3 09:57:04 2021 Colonoscopy completed Tanya Souza [place] & [place] 3 09:56:53 2004 Total Hysterectomy completed Tanya Souza [place] & [place] 3 09:53:55 2004 [employer] Surgery completed Ghislaine Pinzon [place] & [place] 2 15:16:23 1993 Cholecystectomy completed Tanya Souza [place] & [place] 3 09:54:30 1993 Abdominal Surgery completed Ghislaine Pinzon [place] [facility] [facility] & [place] 2 15:16:23 Dilation and curettage completed José Souza [place] [facility] [facility] & [place] 3 09:54:25 Imaging Results None recorded. Procedure [...] Updated DateTime 5 172.72 cm 37.7 kg/m2 486096. 91 g 97.2 [degF] 99 % 99 % 74 /min 156 mm[Hg] 90 mm[Hg] Kiki HUBER - [place] - [place] & [place] 5 09:47:57 Social History Question Answer Notes LastModified by Organizat ion Details LastModified Time Tobacco Smoking Status Current Every Day Smoker Ghislaine Pinzon [facility], [facility] & [place] 03/01/2022 15:16:23 Do You Have An Advance [...] Of Your Most Recent Tobacco Screening? 01/09/2024 [email or web address] Information not available 03/26/2024 What Is Your Current Pack Years? [email or web address] Information not available 03/26/2024 Do You Have [...] Many Years Have You Smoked Tobacco? 37 [email or web address] Information not available 03/26/2024 Do You Have [...] 04/04/2023 What is your exercise level? Occasional [email or web address] Information not available 06/14/2022 Mental Status Question Answer Note LastModified by Organizat ion Details LastModified Time Do you feel stressed (tense, restless, nervous, or anxious, or unable to sleep at night)? [id number] [email or web address] Information not available 03/26/2024 Do you have [...] History Condition Response Other Y Depression Y Anxiety Disorder Y Arthritis Y Acid Reflux (GERD) Y Fibromyalgia Y Headaches Y Kidney Disease Y Ear or Hearing Problems Y Back Problems Y Difficulty Swallowing Y High Cholesterol Y Psychiatric/Mental Health Condition Y Congestive Heart Failure (CHF) Y Reflux/GERD Y Hypertension Y Gynecological History [...] SNOMED-CT Code Diagnosis ICD10 Code Diagnosis Note [id number] [facility] JOSE EDUARDO carcamo [address] [place] [address] 07/24/2024 10:38:10 07/24/2024 12:02:42 Long-term current use of drug therapy 640332812 Z79.899 Hyperlipidemia 66424408 E78.5 Pt is counselled on routine dietary and lifestyle changes including low fat and low carb diets. Routine lipid panels yearly. Cardiac risk discussed with patient as well today. No changes to lipid regimen today. Pt will work on lifestyle changes to modify risk factors and lipid levels Fibromyalgia 525453789 M 79.7 Stable on current regimen today. Continue the current prescribed regimen with no changes today. Ok to return to work at this time without restrictio ns. Mild recur rent major depression 67018016 F33.0 Stable on current regimen today. Continue the current prescribed regimen with no changes today. Essential hypertension 47801545 I10 Hypertensi on is not well controlled [...] . Chronic ki dney disease stage 1 031882619 N18.1 Stable on current regimen today. Continue the current prescribed regimen with no changes today. Chronic pain syndrome 37 8278869 G89.4 Ekasper reviewed today, is compliant, & [...] current. Gastroesop hageal reflux disease without esophagitis 699801873 K21.9 Symptoms are stable and well controlled on the current GERD regimen. There are no signs or symptoms of warning/re d flag concerns. Pt denies: dysphagia, odynophagi a, or blood in stool. If sxs start to worsen or change the pt will RTC. Hyperglycemia 36137114 R 73.9 A1c stable [id number] MD Jannet Pimentel and IM Demarco [address] [place] [address] 08/09/2024 15:53:05 08/09/2024 17:13:11 Chronic low back pain 626376250 G89.29 M54.42 M54.16 Neck pain 45625992 M54.2 M54.12 [id number] EBENEZER SANTOS DO [facility] [address] [place] [address] 08/16/2024 14:19:34 08/16/2024 15:45:32 Lumbar spondylosis 507289182 M47.816 Myofascial pain 13816410 9 M79.18 Chronic pain syndrome 37 0934464 G89.4 Cervical spondylosis 387 668281 M47.812 Fibromyalgia 077875912 M 79.7 Peripheral neuralgia 254 74698 M79.2 Health Concerns Section Related Observation LastModified by Organization Detai ls LastModified Time None Recorded Concern Status LastModified by Organization Details LastModified Time None Recorded Payers Encounter Date Sequence Insurance Name Policy Number Policy Hardin Covered Member ID Hardin Member ID Guarantor Name 08/16/2024 1 [employer] [id number] Lani Espinoza [id number] Lani Espinoza Notes Date Note Type [...] date set for September. Referral: Ameya House [facility]- CAD s/p stent 07/2023, fibromyalgia 08/16/2024: [...] and restore function/mobility/ml lity of life.Current Medication:Opioids: NoneNSAIDS: celecoxibMuscle Relaxers:methocarbamo lOthers: Gabapentin, cymbaltaPrevious Non-Interventional Treatment:- heat/ice, NSAIDS, TENS unit, lidocaine patch, chiropractor, PT, HEPInterventions/Cons ults:-Neurosurgery: none-Orthopedics: none-Interventional pain: none-Podiatry: noneSmoking: yesDiabetes: noA1C: unknownAnticoagulatio n: NoneAntiplatelets: prasugrel (Effient), ASAWork Status: employed EBENEZER SANTOS, DO [address] [facility], [place], [address], [facility] 08/20/2024 21:32:17 OBGyn Episode No OBEpisode recorded.
--- NOTE | 2024-09-20 15:00 | US_ITS ---
FINAL REPORT CLINICAL HISTORY: Claudication,HTN,HLD,CAD,SMOKER COMPARISON: None FINDINGS: ANKLE-BRACHIAL PRESSURE INDICES Pressure indices are as follows: RIGHT LOWER EXTREMITY: Ankle-brachial pressure index: 1.17 Comments: Normal LEFT LOWER EXTREMITY: Ankle-brachial pressure index: 1.13 Comments: Normal CONCLUSION: No evidence of significant obstructive peripheral vascular disease of the lower extremities Reviewed, Interpreted and Dictated by Cruzito Joya MD Transcribed by Sherita Sánchez Authenticated and [facility]
== END 2024-09-20 23:59 | disposition home or self-care (01) ==
LOC: RT 14:42
PROVIDERS: PCP Pediatrics; Visit Provider Physician Assistant
DX: I25.118 Atherosclerotic heart disease of native coronary artery with other forms of angina pectoris (principal); I11.0 Hypertensive heart disease with heart failure; I50.30 Unspecified diastolic (congestive) heart failure; R93.1 Abnormal findings on diagnostic imaging of heart and coronary circulation; I73.9 Peripheral vascular disease, unspecified; E78.5 Hyperlipidemia, unspecified; F17.200 Nicotine dependence, unspecified, uncomplicated
CPT/HCPCS: 93923

== ENCOUNTER 2024-09-27 08:01 | Day surgery (SDC) | payer BC, SELFPAY ==
[2024-09-27] VITALS (10 sets, daily range): BP systolic 117–163; BP diastolic 57–84; PULSE 50–66; RESP 15–20; TEMP 36.7; O2SAT 90–93; BMI 37.0
--- NOTE | 2024-09-27 07:05 | IR_ITS ---
APPROVED REPORT Patient Location: Outpatient PROCEDURES Left heart catheterization Left ventriculogram Selective coronary angiogram INDICATION Known coronary artery disease, New onset angina pectoris, Abnormal Myoview Informed consent was obtained prior to the procedure. COMPLICATIONS none Estimated Blood Loss: less than 10ml TECHNIQUE One percent lidocaine used to anesthetize the right anterior aspect of the wrist. The right radial artery was accessed via the Seldinger technique. A 6 Egyptian sheath was placed in the right radial artery. 2.5 mg of Verapamil, 800 mcg of nitroglycerin, 1mg Lidocaine and 5000 U Heparin were given through the arterial sheath. The JL3 catheter was also used to perform left heart catheterization, left ventriculogram and selective coronary angiogram. At the end of the procedure the sheath was removed good hemostasis was achieved using Traclet band, patient was transferred to the postop holding area in stable condition. ANGIOGRAPHIC RESULTS The left main artery Normal The left anterior descending artery Has a large stent in the proximal segment which is widely patent free of in-stent restenosis with excellent proximal distal transitioning. There is a first diagonal artery jailed within the stent which is approximately 2.5 mm in diameter and has an ostial 80% eccentric stenosis The circumflex artery Dominant with mild 10% luminal regularities The right coronary artery Nondominant yet still large with 10% luminal regularities The POZO ventriculogram reveals Preserved at 50% The left ventricular end-diastolic pressure 15 mmHg IMPRESSION Jailed diagonal artery which is very unlikely to be producing symptoms. Widely patent proximal LAD stent PLAN 1. I am strongly in favor of medical management. Placing a bifurcating stent in the first diagonal artery is unlikely to improve symptoms but would only jeopardize the widely patent stent within the proximal LAD system which looks excellent and has wide patency no in-stent restenosis with excellent proximal distal transitioning. I recommend maximizing antianginal medications 2. Risk factor modification 3. Only if patient had recalcitrant symptoms would I consider placing a stent in the ostial segment of the first diagonal artery. This should be a last resort and medical management should be maximized Electronically signed by : Tomas Estrada MD 09/27/2024 12:56:52
[2024-09-27 08:27] LABS: Basophils # 0.1 K/mm3 (0-0.2); Basophils % 0.5 % (0.1-2.0); Eosinophils # 0.3 Kmm3 (0.0-0.4); Eosinophils % 2.8 % (0.1-12.0); Hematocrit 41.9 % (37.0-47.0); Hemoglobin 13.5 g/dL (12.2-16.2); Immature Granulocytes # 0.03 10^3uL; Immature Granulocytes % 0.3 %; Lymphocytes # 2.9 K/mm3 (0.7-4.5); Mean Corpuscular HGB Conc 32.2 g/dL (31.8-35.4); Mean Corpuscular Hemoglobin 27.9 pg (27.0-31.2); Mean Corpuscular Volume 86.6 fl (81-99); Mean Platelet Volume 10.6 fl (7.4-10.4); Monocytes # 0.6 K/mm3 (0.1-1.0); Monocytes % 6.1 % (1.7-9.3); Neutrophils # 6.4 K/mm3 (1.8-7.8); Neutrophils % 62.3 % (37.0-80.0); Nucleated Red Blood Cells # 0 10^3/uL; Nucleated Red Blood Cells % 0 %; Platelet Count 345 K/mm3 (142-424); Red Blood Count 4.84 M/mm3 (4.20-5.40); Red Cell Distribution Width-SD 44.2 fL; White Blood Count 10.2 K/mm3 (4.8-10.8)
[2024-09-27 08:33] LABS: Chloride 112 mmol/L (98-107); Potassium 4.4 mmoL/L (3.5-5.1); Sodium 143 mmol/L (136-145)
[2024-09-27 08:36] LABS: Blood Urea Nitrogen 12 mg/dl (7-17); Creatinine Clearance Estimated 126 mL/min (50-200); Estimated Glomerular Filt Rate 65 ml/min (>60); GFR (African American) 79 ML/MIN (>60)
[2024-09-27 08:37] LABS: Anion Gap 9.4 mEq/L (5-15); Calcium 9.6 mg/dl (8.4-10.2); Carbon Dioxide 26 mmol/L (22.0-30.0); Glucose 119 mg/dl (74-100)
[2024-09-27] MEDS: NITROGLYCERIN 800MCG/8ML SYR (CATH LAB) 800 MCG IA (11:24)
[2024-09-27] MEDS: diphenhydrAMINE 50MG/ML VIAL 50 MG IV (11:24)
[2024-09-27] MEDS: HEPARIN 1,000 UNITS/500ML NS (CATH LAB) 3000 UNIT IV (11:24)
[2024-09-27] MEDS: 0.9 % SODIUM CHLORIDE 500 ML 25 ML IV (11:25)
[2024-09-27] MEDS: HEPARIN 1,000 UNITS/ML 10ML VIAL (CATH LAB) 5000 UNIT IV (11:25)
[2024-09-27] MEDS: LIDOCAINE 1% 10ML MDV 10 ML IJ (11:25)
[2024-09-27] MEDS: MIDAZOLAM HCL 1MG/ML 5ML VIAL 1 MG IV (11:25)
[2024-09-27] MEDS: VERAPAMIL 2.5MG/ML 2ML VIAL 2.5 MG IV (11:25)
[2024-09-27] MEDS: FENTANYL 100MCG/2ML VIAL 50 MCG IV (11:26)
[2024-09-27] MEDS: IOPAMIDOL-370 (76%);100ML BOTTLE 60 ML IV (13:26)
== END 2024-09-27 14:42 | disposition home or self-care (01) ==
PROVIDERS: PCP Pediatrics; Visit Provider Internal Medicine
PROC: 4A023N7 Measurement of Cardiac Sampling and Pressure, Left Heart, Percutaneous Approach (ICD-10-PCS; CPT 93452; principal; 2024-09-27 07:30)
DX: I25.118 Atherosclerotic heart disease of native coronary artery with other forms of angina pectoris (principal); T82.897A Other specified complication of cardiac prosthetic devices, implants and grafts, initial encounter; Y71.1 Therapeutic (nonsurgical) and rehabilitative cardiovascular devices associated with adverse incidents; I42.9 Cardiomyopathy, unspecified; I25.2 Old myocardial infarction; F41.1 Generalized anxiety disorder; F32.9 Major depressive disorder, single episode, unspecified; I11.0 Hypertensive heart disease with heart failure; F17.210 Nicotine dependence, cigarettes, uncomplicated; E66.9 Obesity, unspecified; I73.9 Peripheral vascular disease, unspecified; E78.2 Mixed hyperlipidemia; I50.32 Chronic diastolic (congestive) heart failure; M79.7 Fibromyalgia; Z79.82 Long term (current) use of aspirin; Z79.899 Other long term (current) drug therapy; Z79.1 Long term (current) use of non-steroidal anti-inflammatories (NSAID); Z95.5 Presence of coronary angioplasty implant and graft; Z68.37 Body mass index [BMI] 37.0-37.9, adult
CPT/HCPCS: 93452; 80048; 85025; 99152; C1725; C1769; J1200; J1644; J2003; J3010; J7040; Q9967

== ENCOUNTER 2025-01-07 13:44 | Outpatient (CLI) | payer BC, SELFPAY ==
--- NOTE | 2025-01-07 13:47 | US_ITS ---
FINAL REPORT CLINICAL HISTORY: CYST OF KIDNEY FINDINGS: RENAL ULTRASOUND Ultrasound images of the kidneys were obtained. Limited images of the liver parenchyma demonstrates normal echogenicity. The right kidney measures 9.5 cm in length. The left kidney measures 12.8 cm in length. There were exophytic masses in the upper pole of the left kidney compatible with benign cysts. The larger measures up to 10.4 cm. No solid renal mass identified. There is no hydronephrosis. IMPRESSION: Dominant benign left renal cyst. Reviewed, Interpreted and Dictated by Chris Sprague MD Transcribed by Adrianna Garcia Authenticated and [facility]
--- OUTSIDE RECORDS SUMMARY | 2025-01-07 13:49 | XMS_ITS | Clinical Summary ---
Author Organization [facility] Address [address] [place] [address] Care Team Providers Care Heel Stainer Name Role Phone Ameya House MD Primary Care Provider [phone] Allergies No known active allergies Medications FLUoxetine HCl (PROZAC PO) Take by mouth. Act olga DULoxetine HCl (CYMBALTA PO) Take by mouth. A ctive albuterol (PROVENTIL HFA;VENTOLIN HFA) 108 (90 Base) MCG/ACT inhaler Inhale 2 puffs Every 4 (Four) Hours As Needed for Wheezing or Shortness of Air. 1 inhaler 7 Active hydrocortisone 2.5 % creamIndication s:Poison radha Apply topically to the appropriate area as directed 2 (Two) Times a Day. 22 g 8 Active benazepril (LOTENSIN) 20 MG tablet Take 20 mg by mouth Daily. Active pantoprazole (PROTONIX) 40 MG EC tablet Take 40 mg by mouth Daily. Active gabapentin (NEURONTIN) 300 MG capsule Take 300 mg by mouth 3 (Three) Times a Day. Active atorvastatin (LIPITOR) 20 MG tablet Take 20 mg by mouth Daily. Active estradiol (ESTRACE) 1 MG tablet Take 1 mg by mouth Daily. Active triamterene-hyd rochlorothiazid e (DYAZIDE) 37.5-25 MG per capsule Take 1 capsule by mouth Every Morning. Active naproxen (NAPROSYN) 500 MG tablet Take 500 mg by mouth 2 (Two) Times a Day With Meals. Active Active Problems No known active problems Family History Medical History Relation Name Comments Cancer Father Relation Name Status Comments Father Social History Tobacco Use Types Packs/Day Years Used Date Smoking Tobacco: Every Day Abuse Screen Answer Date Recorded Unsafe at Home or Work/School Not on file Feels Threatened by Someone? Not on file 02/2023 Does Anyone Keep You from Co ntacting Others or Doint Things Outside the Home? Not on file 02/02/2023 Physical Sign of Abuse Present Not on file 1 Housing Stability Answer Date Recorded Current Living Arrangements Not on file 01/23 Potentially Unsafe Housing Conditions Not on claudia e 02/02/2023 Family and Community Support Answer Dany e Recorded Help with Day-to-Day Activities Not on file 02/02/2023 Lonely or Isolated Not on file 02/02/2023 Employment Answer Date Recorded Do you want help finding or keeping work or a man b? Not on file 02/02/2023 Disabilities Answer Date Recorded Concentrating, Remembering, or Making Decisions Difficulty Not on file 02/02/2023 Doing Errands Independently Difficulty Not on fi le 02/02/2023 Education Answer Date Recorded Help with school or training? Not on file Preferred Language Not on file 02/02/2023 Comments No Sex and Gender Information Value Date Recorded Sex Assigned at Not on file Legal Sex Female 9:40 AM EDT Gender Identity Not on file Sexual Orientation Not on file Last Filed Vital Signs Vital Sign Reading Time Taken Comments Blood Pressure 160/95 01/24/2021 11:30 PM EDT Pulse 71 01/25/2021 12:11 AM EDT Temperature 36.8 C (98.3 F) 01/24/2021 8:15 PM EDT Respiratory Rate 16 01/24/2021 8:15 PM EDT Oxygen Saturation 97% 01/25/2021 12:11 AM EDT Inhaled Oxygen Concentration - - Weight 109 kg (240 lb) 01/24/2021 8:15 PM EDT Height 172.7 cm (5' 8 ) 01/24/2021 8:15 PM EDT Body Mass Index 36.49 01/24/2021 8:15 PM EDT Plan of Treatment Health Maintenance Due Date Last Done Comments Annual Gynecologic Pelvic and Breast Exam 1970 TDAP/TD VACCINES (1 - Tdap) 1989 MAMMOGRAM 2010 COLOGUARD 10/30/2015 COLON CANCER SCREENING 5 YEAR SIGMOIDOSCOPY 10/30/2015 COLONOSCOPY 10/30/2015 COLORECTAL CANCER SCREENING 10/30/2015 CT COLONOGRAPHY 10/30/2015 FECAL OCCULT BLOOD TEST 10/30/2015 FIT Testing (1 year) 10/30/2015 ANNUAL PHYSICAL 02/09/2017 HEPATITIS C SCREENING 02/09/2017 Pneumococcal Vaccine 50+ (1 of 1 - PCV) 2020 ZOSTER VACCINE (1 of 2) 2020 COVID-19 Vaccine (1 - season) 2024 INFLUENZA VACCINE 01/23/2025 Insurance [facility] PPO Care Teams Heel Stainer Relationship Specialty Start Date End Date Ameya House MD [address] [place] [address] PCP - General Internal Medicine 04/25/22
--- OUTSIDE RECORDS SUMMARY | 2025-01-07 13:49 | XMS_ITS | Clinical Summary ---
Author Organization [facility] Address [address] [id number] Care Team Providers Care Video Player Mechanic Name Role Phone Unavailable Primary Care Provider Unavailabl e Social History Tobacco Use Types Packs/Day Years Used Date Smoking Tobacco: Never Assessed Comments Unknown Sex and Gender Information Value Date Recorded Sex Assigned at Not on file Legal Sex Female 6:41 PM EDT Gender Identity Not on file Sexual Orientation Not on file Plan of Treatment Health Maintenance Due Date Last Done Comments [facility]-Depression Screening 1970 [facility]-Infant/Child/Adol SDOH Screenings 1970 [facility]- SDOH Screenings 1988 [facility]-Adult SDOH Screenings 1988 [facility]-DTaP,Tdap,and Td Vaccine s (1 - Tdap) 1989 [facility]-Hepatitis B Vaccines (1 of 3 - 19+ 3-dose series) 1989 [facility]-Pap Smear 10/30/1991 [facility]-Cervical Cancer Screening 2000 [facility]-HPV/Cotest 2000 CT Colonography 10/30/2015 Colonoscopy 10/30/2015 FIT-DNA 10/30/2015 FIT 10/30/2015 FOBT 10/30/2015 Sigmoidoscopy 10/30/2015 [facility]-Colorectal Cancer Screening 10/30/2015 [facility]-Pneumococcal Vaccine: 50 + Years (1 of 1 - PCV) 2020 [facility]-Zoster Vaccines (1 of 2) 2020 [id number] Vaccine (1 - 20 24-25 season) 2024 [facility]-Influenza Vaccine (#1) 2024 HPV Vaccines Aged Out No longer eligi ble based on patient's age to complete this topic [facility]-HIB Vaccines Aged Out No longer e ligible based on patient's age to complete this topic [facility]-Hepatitis A Vaccines Aged Out No longer eligible based on patient's age to complete this topic [facility]-IPV Vaccines Aged Out No longer e ligible based on patient's age to complete this topic [facility]-Rotavirus Vaccines Aged Out No lo nger eligible based on patient's age to complete this topic Insurance ANTHEM
== END 2025-01-07 23:59 | disposition home or self-care (01) ==
LOC: RAD 13:45
PROVIDERS: PCP Pediatrics; Visit Provider Pediatrics
DX: N28.1 Cyst of kidney, acquired (principal)
CPT/HCPCS: 76770

== ENCOUNTER 2025-01-11 14:06 | Emergency (ER) | payer BC, SELFPAY ==
[2025-01-11 14:19] VITALS: BP 174/102; PULSE 67; RESP 19; TEMP 36.9; O2SAT 95; BMI 35.7
--- NOTE | 2025-01-11 14:25 | CT_ITS ---
FINAL REPORT TECHNIQUE: IV contrast enhanced exam This study was performed with techniques to keep radiation doses as low as reasonably achievable, (ALARA). Individualized dose reduction techniques using automated exposure control or adjustment of mA and/or kV according to the patient''s size were employed. CLINICAL HISTORY: left flank pain COMPARISON: none FINDINGS: Abdomen: No acute density is seen within the lung bases. There is a dominant exophytic cyst in the posterior left kidney measuring up to 10.5 cm. A smaller adjacent cyst measures up to 3.5 cm. There is a complex lobulated cyst in the right kidney measuring 16 mm. The remaining solid abdominal organs are normal. The patient has status post cholecystectomy. No bowel obstruction is present. There is no free air. No fluid collection is seen. There is no adenopathy. Pelvis: The appendix is normal. No bowel wall thickening is present. The patient is status post hysterectomy. Pelvic floor prolapse is noted. There is no free fluid. No pelvic mass is seen. IMPRESSION: No evidence of upper urinary tract obstruction or biliary obstruction. Large left renal cyst. Some cysts of this size can be associated with discomfort. Reviewed, Interpreted and Dictated by Chris Sprague MD Transcribed by Adrianna Garcia Authenticated and [facility]
--- NOTE | 2025-01-11 14:25 | XR_ITS ---
FINAL REPORT CLINICAL HISTORY: short of breath COMPARISON: None FINDINGS: A single frontal view of the chest was obtained. No acute pulmonary opacity is present. There is no evidence of effusion or pneumothorax. Mediastinum is unremarkable. Heart size is normal. IMPRESSION: No acute abnormality. Reviewed, Interpreted and Dictated by Chris Sprague MD Transcribed by Adrianna Garcia Authenticated and [facility]
[2025-01-11 14:32] LABS: Hematocrit 42.0 % (37.0-47.0); Hemoglobin 13.6 g/dL (12.2-16.2); Immature Granulocytes % 0.4 %; Mean Corpuscular HGB Conc 32.4 g/dL (31.8-35.4); Mean Corpuscular Hemoglobin 27.6 pg (27.0-31.2); Mean Corpuscular Volume 85.4 fl (81-99); Nucleated Red Blood Cells % 0 %; Platelet Count 383 K/mm3 (142-424); Red Blood Count 4.92 M/mm3 (4.20-5.40); Red Cell Distribution Width-SD 43.5 fL; White Blood Count 13.1 K/mm3 (4.8-10.8)
--- OUTSIDE RECORDS SUMMARY | 2025-01-11 14:32 | XMS_ITS | Clinical Summary ---
Author Organization [facility] Address [address] [id number] Care Team Providers Care Director Underwriter Sales Name Role Phone Unavailable Primary Care Provider [...] 2020 [facility]-Zoster Vaccines (1 of 2) 2020 [id number] Vaccine (1 - 20 24-25 season) 2024 [...]
--- OUTSIDE RECORDS SUMMARY | 2025-01-11 14:32 | XMS_ITS | Clinical Summary ---
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
[2025-01-11 14:36] LABS: Coronavirus 19, PCR Not Detected (NotDetected); Influenza A, PCR Not Detected (NotDetected); Influenza B, PCR Not Detected (NotDetected)
[2025-01-11] MEDS: 0.9 % SODIUM CHLORIDE 1000ML 1,000 ML 999 ML IV (14:37)
[2025-01-11] MEDS: ONDANSETRON 4MG/2ML VIAL 4 MG IV (14:37)
[2025-01-11] MEDS: ACETAMINOPHEN 1,000MG/100ML VIAL 1000 MG IV (14:37)
[2025-01-11] MEDS: KETOROLAC 30MG/ML VIAL 30 MG IV (14:37)
--- NOTE | 2025-01-11 14:37 | HMH.EDGENADL ---
Discharge Plan Disposition Patient Disposition: Home, Self-Care Prescriptions Prescriptions: New ketorolac 10 mg tablet 10 mg PO Q8H 5 Days Qty: 15 0RF Rx Instructions: do not take with celebrex No Action duloxetine 30 mg capsule,delayed release(DR/EC) 90 mg PO DAILY Qty: 90 2RF Rx Instructions: take 3 capsules daily to equal 90 mg total hydroxyzine HCl 10 mg tablet 10 mg PO TID PRN (Reason: anxiety) Qty: 90 0RF Rexulti 2 mg tablet 0RF Rexulti 2 mg tablet 2 mg PO DAILY Qty: 30 2RF atorvastatin 40 mg tablet 40 mg PO DAILY Patient Comments: TAKE 1 TABLET BY MOUTH ONCE DAILY nitroglycerin 0.4 mg tablet, sublingual 0.4 mg sublingual Q5-15M PRN (Reason: chest pain) Qty: 30 1RF Rx Instructions: do not exceed 3 doses per episode tramadol 50 mg tablet 50 mg PO BID Patient Comments: Temporary until can do a nerve block methocarbamol 750 mg tablet 1,500 mg PO DAILY aspirin 81 mg tablet,delayed release (DR/EC) 81 mg PO DAILY 30 Days Qty: 90 3RF prasugrel HCl 10 mg tablet 10 mg PO DAILY 90 Days Qty: 90 3RF metoprolol succinate 25 mg tablet extended release 24 hr 25 mg PO DAILY Qty: 90 2RF Entresto 97-103 mg tablet 1 tab PO BID Qty: 60 11RF amlodipine [Norvasc] 5 mg tablet 5 mg PO DAILY Qty: 90 3RF celecoxib 200 mg capsule 200 mg PO DAILY Patient Comments: TAKE 1 CAPSULE BY MOUTH ONCE DAILY gabapentin 600 mg tablet 600 mg PO TID Patient Comments: TAKE 1 TABLET BY MOUTH EVERY 8 HOURS pantoprazole 40 mg tablet,delayed release (DR/EC) 40 mg PO DAILY Patient Comments: TAKE 1 TABLET BY MOUTH ONCE DAILY Referrals Follow up/Referrals: Praveen Stearns MD [Referring, Medical] - See instructions Ameya House [Primary Care Provider, Medical] - See instructions Activity Restrictions/Add. Instructions Additional Instructions/Restrictions: Please call urology for appointment QUINN. You have a 9 cm cyst on your kidney. Urology will decide treatment and management of this cyst. It is the likely cause of your pain. If any worsening signs or symptoms occur please return to the ED. Clinical Impressions Clinical Impression: Renal cyst Stand Alone Forms Stand Alone Forms: Work/School Release Instructions Patient Instructions: DI for Acute Abdominal Pain Print Language Print Language: Maltese Discharge ED Provider: Zulma Pierre General Adult HPI General Chief complaint: Abdominal Pain Stated complaint: Lt side pain Time Seen by Provider: 01/11/25 14:20 Mode of Arrival: Ambulatory Source of Information: Patient Description of Symptoms (Recalled from ER Triage Doc. by RN): Patient presents to ED from home with c/o left flank pain and back pain. Patient reports the pain started yesterday but has worsened this AM. Patient noted she is in PT for back issues and was also recently diagnosed with lesions on her kidney's. Patient denies any additional symptoms. History of Present Illness HPI narrative: 54-year-old female presents to the ED from home with complaint of left-sided flank pain. She says this started yesterday but she laid on a heating pad all night and got through the night. She says it still hurts this morning so she came for evaluation. She says she had an ultrasound for her kidneys on Tuesday but she does not know the results. She denies any urinary urgency or frequency that is new. She has nausea but no vomiting or diarrhea. She has no history of kidney stones. No fevers or chills. No chest pain or shortness of breath. No other symptoms. Related Data Home Medications ?Medication ?Instructions ?Recorded ?Confirmed celecoxib 200 mg capsule 200 mg PO DAILY 08/12/23 12/28/24 gabapentin 600 mg tablet 600 mg PO TID 08/12/23 12/28/24 pantoprazole 40 mg tablet,delayed 40 mg PO DAILY 08/12/23 12/28/24 release atorvastatin 40 mg tablet 40 mg PO DAILY 09/26/23 12/28/24 methocarbamol 750 mg tablet 1,500 mg PO DAILY Back & leg pain 10/04/24 12/28/24 tramadol 50 mg tablet 50 mg PO BID Back & leg pain 10/04/24 12/28/24 Previous Rx's ?Medication ?Instructions ?Recorded aspirin 81 mg tablet,delayed 81 mg PO DAILY 30 days #90 tabs 10/12/23 release prasugrel HCl 10 mg tablet 10 mg PO DAILY 90 days #90 tabs 10/12/23 metoprolol succinate 25 mg 25 mg PO DAILY #90 tabs 04/11/24 tablet,extended release 24 hr sacubitril 97 mg-valsartan 103 mg 1 tab PO BID #60 tabs 08/06/24 tablet (Entresto) nitroglycerin 0.4 mg sublingual 0.4 mg sublingual Q5-15M PRN chest 09/13/24 tablet pain #30 tabs amlodipine 5 mg tablet (Norvasc) 5 mg PO DAILY #90 tabs 12/03/24 brexpiprazole 2 mg tablet (Rexulti) 2 mg PO DAILY #30 tabs 12/28/24 duloxetine 30 mg capsule,delayed 90 mg (3 x 30 mg) PO DAILY #90 caps 12/28/24 release hydroxyzine HCl 10 mg tablet 10 mg PO TID PRN anxiety #90 tabs 12/28/24 ketorolac 10 mg tablet 10 mg PO Q8H 5 days #15 tabs 01/11/25 Allergies Allergy/AdvReac Type Severity Reaction Status Date / Time No Known Allergies Allergy Verified 12/28/24 10:03 [facility] Disclaimer: The information contained in this section may have been updated after the patient was seen, as this information can be updated by other users. Medical History Abnormal findings on diagnostic imaging of heart and coronary circulation SOB (shortness of breath) Atypical angina Claudication Tobacco use Depression Dyspnea Coronary artery disease Cardiomyopathy HFrEF (heart failure with reduced ejection fraction) HLD (hyperlipidemia) NSTEMI (non-ST elevated myocardial infarction) Heart failure with improved ejection fraction (HFimpEF) Dizziness Generalized anxiety disorder Major depressive disorder Angina at rest Urinary incontinence Hypertension Surgical History History of cholecystectomy History of hysterectomy Social History Smoking Status: Current every day smoker tobacco type: cigarettes packs per day: 1 second hand exposure: No alcohol intake: current alcohol intake frequency: a few times a month counseling given: No substance use type: marijuana counseling given: No (does this once a month; maybe; not often) current occupational status: employed Travel in the last 8 weeks?: None adopted: No caregiver/support person: No foster care: No household members: family housing: house lives independently: Yes marital status: number of children: 2 number of grandchildren: 4 education level: high school current occupation: works at [employer]; for 18 years Hx Recent Travel: No caffeine: Yes physical activity: none working smoke detector in home: No fire extinguisher in home: Yes carbon monox detector in home: No firearms in home: No do you feel safe at home: Yes victim of physical abuse: No victim of emotional abuse: Yes victim of sexual abuse: No Have you lived/traveled outside [place] in past 30 days?: No Contact w/someone who lives/traveled outside US past 30 days?: No Exposure to someone with infectious disease in past 14 days?: No Do you have a fever (greater than 100.4 F or 38 C)?: No Have you tested positive for COVID-19?: No Exposed to someone with COVID-19 in past 14 days?: No Do you have a sore throat?: No Do you have a cough?: No Do you have any weakness?: No Do you have any diarrhea?: No Are you experiencing any unusual bleeding?: No Do you have any muscle aches/pain?: No Do you have any abdominal pain?: Yes Are you experiencing loss of taste or smell?: No Other Medical History Have you received the Flu Vaccine for this season: No Have you received the Pneumonia Vaccine: No ROS Obtained: Yes Systems reviewed as appropriate & no additional complaints except as documented Constitutional Constitutional: Reports as per HPI Physical Exam General General appearance: alert and in distress Head Head exam: normocephalic Eye Eye exam: Present PERRL and EOMI ENT ENT exam: Present normal oropharynx and mucous membranes moist Neck Neck exam: Present full ROM and trachea midline Respiratory Respiratory exam: Present normal lung sounds bilaterally Cardiovascular Cardiovascular exam: Present regular rate, normal rhythm, normal heart sounds, +S1 and +S2 Abdominal Exam Abdominal exam: Present soft and normal bowel sounds Extremities Exam Extremities exam: Present normal inspection, full ROM and normal capillary refill Back Exam Back exam: Present CVA tenderness (L) Neurological Exam Neurological exam: Present alert, oriented X3 and normal gait Skin Skin exam: Present warm, dry and intact Medical Decision Making Medical Records Screening: Per USPSTF and CDC recommendations, given the prevalence of disease in our region, it is our hospital?s policy to screen for HIV and viral Hepatitis for all patients aged 18 and over and those with ongoing risk factors. Oumar Inquiry Pt receiving controlled substance: No Oumar was queried for this patient: No Vital Signs: 01/11/25 14:19 01/11/25 15:21 01/11/25 15:30 Temperature 98.4 F Temperature Source Oral Pulse Rate 69 74 Pulse Rate [Left] 67 Respiratory Rate 19 Blood Pressure 104/79 L 116/90 Blood Pressure [Right Arm] 174/102 H Blood Pressure Mean [Right Arm] 126 Blood Pressure Source Blood Pressure Source [Right Arm] Automatic Cuff Blood Pressure Position Blood Pressure Position [Right Arm] Sitting 02 Sat by Pulse Oximetry 95 96 99 Oxygen Delivery Method Room Air 01/11/25 16:00 01/11/25 17:23 Temperature 98 F Temperature Source Oral Pulse Rate 64 70 Pulse Rate [Left] Respiratory Rate 17 Blood Pressure 156/79 H 164/80 H Blood Pressure [Right Arm] Blood Pressure Mean [Right Arm] Blood Pressure Source Automatic Cuff Blood Pressure Source [Right Arm] Blood Pressure Position Sitting Blood Pressure Position [Right Arm] 02 Sat by Pulse Oximetry 98 Oxygen Delivery Method Room Air Lab Data Lab Results 01/11/25 14:31: SARS-CoV-2 (PCR) Not detected, Influenza A Untype (PCR) Not detected, Influenza Type B (PCR) Not detected 01/11/25 : WBC 13.1 H, RBC 4.92, Hgb 13.6, Hct 42.0, MCV 85.4, MCH 27.6, MCHC 32.4, RDW 13.9, Plt Count 383, MPV 10.5 H, Neut % (Auto) 56.8, Lymph % (Auto) 31.9, [place] % (Auto) 8.3, Eos % (Auto) 2.2, Baso % (Auto) 0.4, Neut # (Auto) 7.4, Lymph # (Auto) 4.2, [place] # (Auto) 1.1 H, Eos # (Auto) 0.3, Baso # (Auto) 0.1, Sodium 139, Potassium 3.8, Chloride 101, Carbon Dioxide 27, Anion Gap 14.8, BUN 12, Creatinine 0.90, Estimated Creat Clear 120, Estimated GFR 65, Est GFR ( Amer) 79, Glucose 111 H, Calcium 10.0, Magnesium 1.9, Total Bilirubin 0.9, AST 31, ALT 21, Alkaline Phosphatase 99, Troponin I < 0.01, Total Protein 7.9, Albumin 4.7, Globulin 3.2, Albumin/Globulin Ratio 1.5, Lipase 119, Urine Color Yellow, Urine Appearance Clear, Urine pH 6.0, Ur Specific [place] 1.020, Urine Protein Negative, Urine Glucose (UA) Negative, Urine Ketones Negative, Urine Blood Negative, Urine Nitrate Negative, Urine Bilirubin Negative, Urine Urobilinogen 0.2, Ur Leukocyte Esterase Negative, Urine RBC 5-10, Urine WBC 20-50, Ur Squamous Epith Cells 5-10, Amorphous Sediment 1+, Urine Bacteria 1+ 01/11/25 Unknown 01/11/25 Unknown Orders (Tests/Meds): ED MEDICATIONS Discontinued Medications Generic Name Dose Route Start Last Admin Trade Name Freq PRN Reason Stop Dose Admin Acetaminophen 1,000 mg 01/11/25 14:25 01/11/25 14:37 Acetaminophen 1,000mg/100ml Vial IV 01/11/25 14:26 1,000 mg ONCE ONE Administration Sodium Chloride 1,000 mls @ 999 mls/hr 01/11/25 14:25 01/11/25 16:28 Sod Chlor 0.9% 1000ml Bag IV 01/11/25 15:25 Infused .Q1H1M ONE Infusion Iopamidol 75 ml 01/11/25 15:13 01/11/25 15:19 Iopamidol-370 (76%);100ml Bottle IV 01/11/25 15:14 75 ml ONCE ONE Administration Ketorolac Tromethamine 30 mg 01/11/25 14:25 01/11/25 14:37 Ketorolac 30mg/Ml Vial IV 01/11/25 14:26 30 mg ONCE ONE Administration Morphine Sulfate 4 mg 01/11/25 15:22 01/11/25 15:27 Morphine 4mg/Ml Syringe IV 01/11/25 15:23 4 mg ONCE ONE Administration Ondansetron HCl 4 mg 01/11/25 14:25 01/11/25 14:37 Ondansetron 4mg/2ml Vial IV 01/11/25 14:26 4 mg ONCE ONE Administration Sodium Chloride 10 ml 01/11/25 15:13 Sodium Chloride 0.9% 10ml Syr (Rad Only) IV 02/10/25 15:12 NEEDED PRN Maintain IV Site ORDERS Category Date Time Status CT abdomen pelvis w con Stat Cat Scan 01/11/25 14:25 Completed Chest XR -- portable [XR chest portable] Stat Exams 01/11/25 14:25 Completed CBC [Complete Blood Count Auto Diff] Stat Lab 01/11/25 Completed Comprehensive Metabolic Panel Stat Lab 01/11/25 Completed Lipase Stat Lab 01/11/25 Completed Magnesium Stat Lab 01/11/25 Completed Rapid PCR Covid and Flu A/B Stat Lab 01/11/25 14:31 Completed Trop I [Troponin I] Stat Lab 01/11/25 Completed Urinalysis and Microscopic Stat Lab 01/11/25 Completed Urine Culture Stat Micro 01/11/25 Received Medical Decision Narrative: 54-year-old female presents to the ED for evaluation of left flank pain. Patient is stable upon arrival with no fever. Initial workup will include labs, CT scan. Differential diagnosis includes kidney stone, UTI, diverticulitis. Initial interventions includes IV fluids, pain meds, nausea meds. Patient does have improved pain after having morphine and Toradol. Patient and daughter are wanting pain meds to go home on. I explained that we do not do narcotics from the ED that she needs to contact her primary care physician for this. They both said that Dr. House will not do this. I explained that she has a large renal cyst that is going to have to be treated by urology. They are wanting narcotics. I offered to give him Toradol for pain. IM referring him to urologist for follow-up care. Patient is safe for discharge at this time. Critical Care Critical Care Time Critical Care Time: No
[2025-01-11 14:50] LABS: Albumin Level 4.7 g/dl (3.5-5.0); Chloride 101 mmol/L (98-107); Microscopic, Urine URINE MICROSCOPIC (MICROSCOPIC); Potassium 3.8 mmoL/L (3.5-5.1); Sodium 139 mmol/L (136-145)
[2025-01-11 14:52] LABS: Blood Urea Nitrogen 12 mg/dl (7-17); Creatinine Clearance Estimated 120 mL/min (50-200); Creatinine,Serum 0.90 mg/dl (0.52-1.04); Estimated Glomerular Filt Rate 65 ml/min (>60); GFR (African American) 79 ML/MIN (>60)
[2025-01-11 14:53] LABS: Alanine Aminotransferase 21 U/L (12-78); Albumin/Globulin Ratio 1.5 (1.1-1.8); Alkaline Phosphatase 99 U/L (38-126); Anion Gap 14.8 mEq/L (5-15); Aspartate Amino Transferase 31 U/L (14-36); Bilirubin,Total 0.9 mg/dl (0.2-1.3); Bilirubin,Urine Negative (Negative); Calcium 10.0 mg/dl (8.4-10.2); Carbon Dioxide 27 mmol/L (22.0-30.0); Color,Urine YELLOW (Yellow); Globulin 3.2 g/dL (1.3-3.2); Glucose 111 mg/dl (74-100); Glucose,Urine (UA) Negative (Negative); Ketones,Urine Negative (Negative); Leukocyte Esterase,Urine Negative (Negative); Lipase 119 U/L (23-300); Magnesium 1.9 mg/dl (1.6-2.3); PH,Urine 6.0 (5.0-8.5); Protein,Urine Negative (Negative); Specific Gravity, Urine 1.020 (1.005-1.030); Total Protein,Serum 7.9 g/dl (6.3-8.2); Urobilinogen,Urine 0.2 EU/dl (0.2)
[2025-01-11 15:16] LABS: Troponin I < 0.01 ng/ml (0.00-0.034)
[2025-01-11] MEDS: IOPAMIDOL-370 (76%);100ML BOTTLE 75 ML IV (15:19)
[2025-01-11 15:21] VITALS: BP 104/79; PULSE 69; O2SAT 96
[2025-01-11] MEDS: MORPHINE 4MG/ML SYRINGE 4 MG IV (15:27)
[2025-01-11 15:30] VITALS: BP 116/90; PULSE 74; O2SAT 99
[2025-01-11 15:31] LABS: Amorphous Sediment,Urine 1+ /lpf; Bacteria,Urine 1+ /lpf; WBC,Urine 20-50 #/hpf (0-3)
--- NOTE | 2025-01-11 15:39 | ECG_ITS ---
APPROVED REPORT Exam: Resting ECG HR:62 bpm ECG Measurements Heart Rate 62 AXES MO 177 P 56 QRSd 102 QRS 44 QT 396 T 48 QTc 402 Conclusion SINUS RHYTHM MODERATE ST DEPRESSION [0.05+ mV ST DEPRESSION] ABNORMAL ECG UNCONFIRMED REPORT Electronically signed by : Nacho Pierre, 01/11/2025 16:38:05
[2025-01-11 16:00] VITALS: BP 156/79; PULSE 64; O2SAT 98
[2025-01-11 17:23] VITALS: BP 164/80; PULSE 70; RESP 17; TEMP 36.6; O2SAT 98
== END 2025-01-11 17:24 | disposition home or self-care (01) ==
PROVIDERS: Nurse Practitioner; Emergency Provider Student in an Organized Health Care Education/Training Program; PCP Pediatrics
DX: R10.32 Left lower quadrant pain (principal); M54.59 Other low back pain; N28.1 Cyst of kidney, acquired; F17.210 Nicotine dependence, cigarettes, uncomplicated; I11.0 Hypertensive heart disease with heart failure; I50.20 Unspecified systolic (congestive) heart failure; E78.5 Hyperlipidemia, unspecified
CPT/HCPCS: 71045; 74177; 80053; 81001; 83690; 83735; 84484; 85025; 87086; 87636; 93005; 96361; 96374; 96375; 99285; J0131; J1885; J2270; J2405; J7030; Q9967